=== PATIENT | male | born 1985 | race Asian ===

== ENCOUNTER 2017-09-28 22:46 | Emergency (ER) | payer OTHER ==
[~2017-09-28] VITALS: Ht 162.6 cm; Wt 58.1 kg
[~2017-09-28 22:46] MED LIST: FAMO-63 PO
[2017-09-28] MEDS ORDERED: LIDO:MAALOX:DONNATAL 1:1:1 15 ML SINGLE DOSE SWSW ONE (23:15)
--- NOTE | 2017-09-28 23:19 | PHYS DOC ---
Past Medical History Past Medical History: No Pertinent History Past Surgical History: No Surgical History Alcohol Use: None Drug Use: None Adult General Chief Complaint Chief Complaint: GI PROBLEM HPI HPI Patient is a 32 year old male who presents with complaint of abdominal pain and diarrhea. Patient states his symptoms started 3 days ago and have continued to worsen. Patient denies any significant past medical history and has not recently been hospitalized or on antibiotics. On my evaluation, the patient rates his pain as 2/10. Patient denies any vomiting or fever associated with symptoms. Patient states that he has been taking a medication for his stomach but does not know the name of the medication. Patient took a picture of a capsule that resembles omeprazole however it is unclear if this is the medication that he is taking. The patient denies any exacerbating or alleviating factors at this time. Review of Systems Review of Systems Constitutional: Denies fever or chills [] Eyes: Denies change in visual acuity, redness, or eye pain [] HENT: Denies nasal congestion or sore throat [] Respiratory: Denies cough or shortness of breath [] Cardiovascular: Denies chest pain or edema[] GI: Abdominal pain, diarrhea, denies nausea or vomiting[] : Denies dysuria or hematuria [] Musculoskeletal: Denies back pain or joint pain [] Integument: Denies rash or skin lesions [] Neurologic: Denies headache, focal weakness or sensory changes [] All other systems were reviewed and found to be within normal limits, except as documented in this note. Current Medications Current Medications Current Medications Medications (Trade) Dose Ordered Sig/Cyndi Start Time Stop Time Status Last Admin Dose Admin Multi-Ingredient Mouthwash/Gargle (Gi Cocktail Single Dose) 15 ml 1X ONCE 09/28/17 23:15 09/28/17 23:16 DC 09/28/17 23:21 15 ML Allergies Allergies Allergies Coded Allergies Type Severity Reaction Last Updated Verified No Known Drug Allergies 08/11/16 No Physical Exam Physical Exam Constitutional: Alert, afebrile, no acute distress. [] HENT: Normocephalic, atraumatic, bilateral external ears normal, oropharynx moist, no oral exudates, nose normal. [] Eyes: PERRLA, EOMI, conjunctiva normal, no discharge. [] Neck: Normal range of motion, no tenderness, supple, no stridor. [] Cardiovascular:Heart rate regular rhythm, no murmur [] Lungs & Thorax: Bilateral breath sounds clear to auscultation [] Abdomen: Bowel sounds normal, soft, no tenderness, no masses, no pulsatile masses. [] Skin: Warm, dry, no erythema, no rash. [] Back: No tenderness, no CVA tenderness. [] Extremities: No tenderness, no cyanosis, no clubbing, ROM intact, no edema. [] Neurologic: Alert and oriented X 3, normal motor function, normal sensory function, no focal deficits noted. [] Current Patient Data Vital Signs Vital Signs Date Time Temp Pulse Resp B/P (MAP) Pulse Ox O2 Delivery O2 Flow Rate FiO2 09/28/17 23:30 68 21 123/71 (88) 99 Room Air 09/28/17 23:00 98.2 98.2 Lab Values Laboratory Tests Test 09/28/17 23:25 White Blood Count 6.9 x10^3/uL (4.0-11.0) Red Blood Count 5.03 x10^6/uL (4.30-5.70) Hemoglobin 14.6 g/dL (13.0-17.5) Hematocrit 43.8 % (39.0-53.0) Mean Corpuscular Volume 87 fL (79-100) Mean Corpuscular Hemoglobin 29 pg (25-35) Mean Corpuscular Hemoglobin Concent 33 g/dL (31-37) Red Cell Distribution Width 13.1 % (11.5-14.5) Platelet Count 210 x10^3/uL (140-400) Neutrophils (%) (Auto) 57 % (31-73) Lymphocytes (%) (Auto) 32 % (24-48) Monocytes (%) (Auto) 8 % (0-9) Eosinophils (%) (Auto) 2 % (0-3) Basophils (%) (Auto) 1 % (0-3) Neutrophils # (Auto) 4.0 x10^3uL (1.8-7.7) Lymphocytes # (Auto) 2.2 x10^3/uL (1.0-4.8) Monocytes # (Auto) 0.6 x10^3/uL (0.0-1.1) Eosinophils # (Auto) 0.1 x10^3/uL (0.0-0.7) Basophils # (Auto) 0.0 x10^3/uL (0.0-0.2) Sodium Level 144 mmol/L (136-145) Potassium Level 3.7 mmol/L (3.5-5.1) Chloride Level 106 mmol/L (98-107) Carbon Dioxide Level 29 mmol/L (21-32) Anion Gap 9 (6-14) Blood Urea Nitrogen 16 mg/dL (8-26) Creatinine 1.3 mg/dL (0.7-1.3) Estimated GFR (Cockcroft-Gault) 64.0 BUN/Creatinine Ratio 12 (6-20) Glucose Level 93 mg/dL (70-99) Calcium Level 8.4 mg/dL (8.5-10.1) L Total Bilirubin 0.3 mg/dL (0.2-1.0) Aspartate Amino Transferase (AST) 16 U/L (15-37) Alanine Aminotransferase (ALT) 21 U/L (16-63) Alkaline Phosphatase 82 U/L (46-116) Total Protein 7.2 g/dL (6.4-8.2) Albumin 4.0 g/dL (3.4-5.0) Albumin/Globulin Ratio 1.3 (1.0-1.7) Lipase 225 U/L (73-393) Laboratory Tests 09/28/17 23:25 Laboratory Tests 09/28/17 23:25 EKG EKG Not performed[] Radiology/Procedures Radiology/Procedures 3 view acute abdominal series interpreted by me: Nonobstructive bowel gas pattern, no free air under the diaphragm, no pulmonary infiltrates or effusions[ ] Course & Med Decision Making Course & Med Decision Making Pertinent Labs and Imaging studies reviewed. (See chart for details) Patient given GI cocktail in the emergency department with improvement in pain symptoms. Patient's labwork unremarkable and x-ray show no acute abnormality. The patient's symptoms appear consistent with gastritis. Advised to continue on home PPI and follow-up in one week with primary doctor for reevaluation. Advised return emergency department for any worsening symptoms. Agent voiced understanding and in agreement with treatment plan. Dragon Disclaimer Dragon Disclaimer This electronic medical record was generated, in whole or in part, using a voice recognition dictation system. Departure Departure Impression: Primary Impression: Abdominal pain Additional Impression: Diarrhea Disposition: HOME, SELF-CARE Condition: IMPROVED Referrals: UNKNOWN PCP NAME (PCP) Patient Instructions: Abdominal Pain, Diarrhea Additional Instructions: Follow-up to primary doctor in 1 week if symptoms are not improving. Continue your medication as prescribed at your previous visit for treatment of your symptoms. Return to emergency department for any worsening symptoms. Problem Qualifiers Primary Impression: Abdominal pain Abdominal location: epigastric Qualified Codes: R10.13 - Epigastric pain Additional Impression: Diarrhea Diarrhea type: presumed infectious Qualified Codes: A09 - Infectious gastroenteritis and colitis, unspecified CINTHYA MCKEON MD Sep 28, 2017 23:19
[2017-09-28 23:35] LABS: BASO % 1 % (0-3); EOS % 2 % (0-3); HEMATOCRIT 43.8 % (39.0-53.0); HEMOGLOBIN 14.6 g/dL (13.0-17.5); LYMPH # 2.2 x10^3/uL (1.0-4.8); LYMPH % 32 % (24-48); MEAN CORPUSCULAR HEMOGLOBIN 29 pg (25-35); MEAN CORPUSCULAR HGB CONC 33 g/dL (31-37); MEAN CORPUSCULAR VOLUME 87 fL (79-100); MONO % 8 % (0-9); NEUT % 57 % (31-73); PLATELET COUNT 210 x10^3/uL (140-400); RED BLOOD COUNT 5.03 x10^6/uL (4.30-5.70); RED CELL DISTRIBUTION WIDTH 13.1 % (11.5-14.5); WHITE BLOOD COUNT 6.9 x10^3/uL (4.0-11.0)
[2017-09-28 23:46] LABS: CALCIUM 8.4 mg/dL (8.5-10.1); CREATININE 1.3 mg/dL (0.7-1.3); POTASSIUM 3.7 mmol/L (3.5-5.1)
[2017-09-28 23:51] LABS: ALBUMIN/GLOBULIN RATIO 1.3 (1.0-1.7); TOTAL BILIRUBIN 0.3 mg/dL (0.2-1.0); TOTAL PROTEIN 7.2 g/dL (6.4-8.2)
[2017-09-29] VITALS: BP 125/63
--- NOTE | 2017-09-29 08:19 | RAD ---
Indication: Abdominal pain. Time of exam 2344 hours. The heart size is normal. The lungs are clear. No free air is identified. The bowel gas pattern is nonobstructed. No pathologic calcifications are seen. Impression: No acute feature detected.
[2017-09-29] MEDS ORDERED: LOPE2CAP PO (23:07)
== END 2017-09-29 00:15 | disposition home or self-care (01) ==
LOC: ER 22:46
DX: A09 Infectious gastroenteritis and colitis, unspecified (principal); R10.13 Epigastric pain
CPT/HCPCS: 36415; 74022; 80053; 83690; 85025; 99285-25

== ENCOUNTER 2017-09-29 22:07 | Emergency (ER) | payer OTHER ==
[~2017-09-29] VITALS: Ht 152.4 cm; Wt 59.0 kg
[2017-09-29 23:00] VITALS: BP 126/81
[2017-09-29] MEDS ORDERED: LOPERAMIDE 2 MG CAPSULE PO ONE (23:00)
[2017-09-29] MEDS ORDERED: LOPE2CAP PO (23:07)
--- NOTE | 2017-09-29 23:07 | PHYS DOC ---
Past Medical History Past Medical History: No Pertinent History Past Surgical History: No Surgical History Alcohol Use: None Drug Use: None Adult General Chief Complaint Chief Complaint: ABDOMINAL PAIN HPI HPI Patient is a 32 year old male who presents with complaint of diarrhea. Patient states that he has had symptoms for the past 4 days. Patient was seen in the emergency department yesterday and had blood work completed which did not show any acute findings. The patient denies any pain currently. Patient states that his diarrhea has persisted. Patient states that he was told come back to emergency department if his symptoms did not improve from yesterday's visit. Patient states that he has missed work the last 2 days due to his symptoms. Patient denies any associated fever or vomiting. Patient has been able to eat and drink without difficulty. Patient denies any recent travel out of the city limits within the last month. Patient also denies any known sick contacts. Review of Systems Review of Systems Constitutional: Denies fever or chills [] Eyes: Denies change in visual acuity, redness, or eye pain [] HENT: Denies nasal congestion or sore throat [] Respiratory: Denies cough or shortness of breath [] Cardiovascular: Denies chest pain or edema[] GI: Diarrhea, denies abdominal pain, nausea, or vomiting[] : Denies dysuria or hematuria [] Musculoskeletal: Denies back pain or joint pain [] Integument: Denies rash or skin lesions [] Neurologic: Denies headache, focal weakness or sensory changes [] All other systems were reviewed and found to be within normal limits, except as documented in this note. Current Medications Current Medications Current Medications Medications (Trade) Dose Ordered Sig/[facility] Start Time Stop Time Status Last Admin Dose Admin Loperamide HCl (Imodium) 4 mg 1X ONCE 09/29/17 23:00 09/29/17 23:01 DC 09/29/17 23:00 4 MG Allergies Allergies Allergies Coded Allergies Type Severity Reaction Last Updated Verified No Known Drug Allergies 08/11/16 No Physical Exam Physical Exam Constitutional: Alert, afebrile, no acute distress. [] HENT: Normocephalic, atraumatic, bilateral external ears normal, oropharynx moist, no oral exudates, nose normal. [] Eyes: PERRLA, EOMI, conjunctiva normal, no discharge. [] Neck: Normal range of motion, no tenderness, supple, no stridor. [] Cardiovascular:Heart rate regular rhythm, no murmur [] Lungs & Thorax: Bilateral breath sounds clear to auscultation [] Abdomen: Bowel sounds normal, soft, no tenderness, no masses, no pulsatile masses. [] Skin: Warm, dry, no erythema, no rash. [] Back: No tenderness, no CVA tenderness. [] Extremities: No tenderness, no cyanosis, no clubbing, ROM intact, no edema. [] Neurologic: Alert and oriented X 3, normal motor function, normal sensory function, no focal deficits noted. [] Current Patient Data Vital Signs Vital Signs Date Time Temp Pulse Resp B/P (MAP) Pulse Ox O2 Delivery O2 Flow Rate FiO2 09/29/17 23:00 66 16 126/81 (96) 97 Room Air 09/29/17 22:25 98.2 98.2 Lab Values None performed EKG EKG Not performed[] Radiology/Procedures Radiology/Procedures None performed[] Course & Med Decision Making Course & Med Decision Making Pertinent Labs and Imaging studies reviewed. (See chart for details) Patient appears well and in no acute distress. The patient's diarrhea is likely due to viral illness. The patient was treated with Imodium in the emergency department and instructed to continue on Imodium as needed for diarrhea. Advise follow-up in the next 5-7 days if symptoms are not improving and return emergency department for any worsening symptoms. Patient voiced understanding and in agreement with treatment plan. Dragon Disclaimer Dragon Disclaimer This electronic medical record was generated, in whole or in part, using a voice recognition dictation system. Departure Departure Impression: Primary Impression: Diarrhea Disposition: 01 HOME, SELF-CARE Condition: GOOD Referrals: UNKNOWN PCP NAME (PCP) Patient Instructions: Diarrhea Additional Instructions: Follow-up and 5-7 days if symptoms are not improving. Return to the emergency department for any worsening symptoms such as severe pain, fever, uncontrolled vomiting, or bloody stools. Scripts Loperamide Hcl (LOPERAMIDE) 2 Mg Capsule 2 MG PO UD Y for DIARRHEA, #1 PKG Take one capsule after each unformed stool. Do not take more than 8 capsules in one day. Prov: CINTHYA MCKEON MD 09/29/17 Problem Qualifiers Primary Impression: Diarrhea Diarrhea type: presumed infectious Qualified Codes: A09 - Infectious gastroenteritis and colitis, unspecified CINTHYA MCKEON MD Sep 29, 2017 23:07
== END 2017-09-29 23:13 | disposition home or self-care (01) ==
LOC: ER 22:07
DX: R19.7 Diarrhea, unspecified (principal)
CPT/HCPCS: 99283

== ENCOUNTER 2017-11-04 16:42 | Emergency (ER) | payer OTHER | END 2017-11-04 21:32 | disposition home or self-care (01) | LOC: ER 16:42 | DX: R10.10 Upper abdominal pain, unspecified (principal); R14.1 Gas pain | CPT/HCPCS: 99284 ==

== ENCOUNTER 2019-02-06 21:37 | Emergency (ER) | payer BC, OTHER ==
[~2019-02-06] VITALS: Ht 167.6 cm; Wt 61.2 kg
[~2019-02-06 21:37] MED LIST changes: +LOPE2CAP PO
[2019-02-06 22:28] LABS: BASO % 0 % (0-3); EOS % 0 % (0-3); HEMOGLOBIN 14.2 g/dL (13.0-17.5); LYMPH # 0.6 x10^3/uL (1.0-4.8); LYMPH % 5 % (24-48); MEAN CORPUSCULAR HEMOGLOBIN 28 pg (25-35); MEAN CORPUSCULAR HGB CONC 33 g/dL (31-37); MEAN CORPUSCULAR VOLUME 85 fL (79-100); MONO % 7 % (0-9); NEUT # 12.3 x10^3uL (1.8-7.7); NEUT % 88 % (31-73); PLATELET COUNT 203 x10^3/uL (140-400); RED BLOOD COUNT 5.05 x10^6/uL (4.30-5.70); RED CELL DISTRIBUTION WIDTH 13.2 % (11.5-14.5); WHITE BLOOD COUNT 14.1 x10^3/uL (4.0-11.0)
--- NOTE | 2019-02-06 22:40 | PHYS DOC ---
Past Medical History Past Medical History: No Pertinent History Past Surgical History: No Surgical History Alcohol Use: None Drug Use: None Adult General Chief Complaint Chief Complaint: ABDOMINAL PAIN HPI HPI Patient is a 34 year old male who presents with abdominal pain. He describes it as a crampy sensation that he is unable to localize. He states the pain started after eating spicy barbecue. Palpation of the stomach makes his pain worse. Nothing has improved his pain. He is also reporting nausea. Patient denies any fevers, chills, vomit, or blood in his urine. Last bowel movement was at noon and was normal for him. Review of Systems Review of Systems Constitutional: Denies fever or chills Eyes: Denies redness or eye pain HENT: Denies nasal congestion or sore throat Respiratory: Denies cough or shortness of breath Cardiovascular: Denies chest pain or palpitations GI: Reports abdominal pain, nausea. Denies vomiting, bloody stools or diarrhea : Denies dysuria or hematuria Musculoskeletal: Denies back pain or joint pain Integument: Denies rash or skin lesions Neurologic: Denies headache or weakness Complete systems were reviewed and found to be within normal limits, except as documented in this note. Current Medications Current Medications Current Medications Medications (Trade) Dose Ordered Sig/[facility] Start Time Stop Time Status Last Admin Dose Admin Famotidine (Pepcid Vial) 20 mg 1X ONCE 02/06/19 23:00 02/06/19 23:01 DC 02/06/19 22:41 20 MG Ketorolac Tromethamine (Toradol 15mg Vial) 15 mg 1X ONCE 02/06/19 23:00 02/06/19 23:01 DC 02/06/19 22:41 15 MG Multi-Ingredient Mouthwash/Gargle (Gi Cocktail) 20 ml 1X ONCE 02/06/19 23:00 02/06/19 23:01 DC 02/07/19 00:04 20 ML Ondansetron HCl (Zofran) 4 mg 1X ONCE 02/06/19 23:00 02/06/19 23:01 DC 02/06/19 22:41 4 MG Potassium Chloride (Klor-Con) 40 meq 1X ONCE 02/07/19 02:30 02/07/19 02:31 DC 02/07/19 02:31 40 MEQ Sodium Chloride 1,000 ml @ 1,000 mls/hr 1X ONCE 02/06/19 23:00 02/07/19 00:01 DC 02/06/19 22:41 1,000 MLS/HR Allergies Allergies Allergies Coded Allergies Type Severity Reaction Last Updated Verified No Known Drug Allergies 08/11/16 No Physical Exam Physical Exam Constitutional: Well developed, well nourished HENT: Normocephalic, atraumatic Eyes: Conjunctiva normal, no discharge. Neck: Normal range of motion, no tenderness, supple, no stridor. Cardiovascular:Heart rate regular rhythm, no murmur Lungs & Thorax: Bilateral breath sounds clear to auscultation Abdomen: Bowel sounds normal, soft, lower abdominal tenderness, no rebound, rigidity, or guarding, non peritoneal Skin: Warm, dry. Back: No tenderness, no CVA tenderness. Extremities: No tenderness, no cyanosis, no clubbing, ROM intact, no edema. Neurologic: Alert and oriented X 3, no focal deficits noted. Psychologic: Affect normal, mood normal. Current Patient Data Vital Signs Vital Signs Date Time Temp Pulse Resp B/P (MAP) Pulse Ox O2 Delivery O2 Flow Rate FiO2 02/07/19 02:30 64 16 109/64 (79) 98 Room Air 02/06/19 21:47 98.2 98.2 Lab Values Laboratory Tests Test 02/06/19 22:18 02/07/19 01:10 White Blood Count 14.1 x10^3/uL (4.0-11.0) H Red Blood Count 5.05 x10^6/uL (4.30-5.70) Hemoglobin 14.2 g/dL (13.0-17.5) Hematocrit 43.0 % (39.0-53.0) Mean Corpuscular Volume 85 fL (79-100) Mean Corpuscular Hemoglobin 28 pg (25-35) Mean Corpuscular Hemoglobin Concent 33 g/dL (31-37) Red Cell Distribution Width 13.2 % (11.5-14.5) Platelet Count 203 x10^3/uL (140-400) Neutrophils (%) (Auto) 88 % (31-73) H Lymphocytes (%) (Auto) 5 % (24-48) L Monocytes (%) (Auto) 7 % (0-9) Eosinophils (%) (Auto) 0 % (0-3) Basophils (%) (Auto) 0 % (0-3) Neutrophils # (Auto) 12.3 x10^3uL (1.8-7.7) H Lymphocytes # (Auto) 0.6 x10^3/uL (1.0-4.8) L Monocytes # (Auto) 1.0 x10^3/uL (0.0-1.1) Eosinophils # (Auto) 0.0 x10^3/uL (0.0-0.7) Basophils # (Auto) 0.0 x10^3/uL (0.0-0.2) Segmented Neutrophils % 80 % (35-66) H Band Neutrophils % 7 % (0-9) Lymphocytes % 4 % (24-48) L Monocytes % 8 % (0-10) Eosinophils % 1 % (0-5) Platelet Estimate Adequate (ADEQUATE) Sodium Level 140 mmol/L (136-145) Potassium Level 2.9 mmol/L (3.5-5.1) *L Chloride Level 103 mmol/L (98-107) Carbon Dioxide Level 25 mmol/L (21-32) Anion Gap 12 (6-14) Blood Urea Nitrogen 23 mg/dL (8-26) Creatinine 1.1 mg/dL (0.7-1.3) Estimated GFR (Cockcroft-Gault) 76.6 BUN/Creatinine Ratio 21 (6-20) H Glucose Level 113 mg/dL (70-99) H Calcium Level 9.4 mg/dL (8.5-10.1) Magnesium Level 1.7 mg/dL (1.8-2.4) L Total Bilirubin 0.6 mg/dL (0.2-1.0) Aspartate Amino Transferase (AST) 20 U/L (15-37) Alanine Aminotransferase (ALT) 25 U/L (16-63) Alkaline Phosphatase 79 U/L (46-116) Total Protein 7.5 g/dL (6.4-8.2) Albumin 4.2 g/dL (3.4-5.0) Albumin/Globulin Ratio 1.3 (1.0-1.7) Lipase 184 U/L (73-393) Urine Collection Type Unknown Urine Color Yellow Urine Clarity Clear Urine pH 6.0 Urine Specific [place] 1.015 Urine Protein Negative mg/dL (NEG-TRACE) Urine Glucose (UA) Negative mg/dL (NEG) Urine Ketones (Stick) Negative mg/dL (NEG) Urine Blood Negative (NEG) Urine Nitrite Negative (NEG) Urine Bilirubin Negative (NEG) Urine Urobilinogen Dipstick 0.2 mg/dL (0.2 mg/dL) Urine Leukocyte Esterase Negative (NEG) Urine RBC 0 /HPF (0-2) Urine WBC Occ /HPF (0-4) Urine Squamous Epithelial Cells Occ /LPF Urine Bacteria 0 /HPF (0-FEW) Urine Mucus Slight /LPF Laboratory Tests 02/06/19 22:18 Laboratory Tests 02/06/19 22:18 EKG EKG [] Radiology/Procedures Radiology/Procedures PROCEDURE: CT ABDOMEN PELVIS WO CONTRAST PQRS Compliance statement: One or more of the following individualized dose reduction techniques were utilized for this examination: 1. Automated exposure control. 2. Adjustment of the mA and/or kV according to patient size. 3. Use of iterative reconstruction technique. Indication:ABD PAIN; EVAL FOR URETERAL CALCULI TECHNIQUE: CT abdomen and pelvis without IV contrast with multiplanar reformats. COMPARISON: None FINDINGS: Limited evaluation of solid abdominal and pelvic organs due to lack of IV contrast. Heart is normal in size. No pericardial or pleural effusion. Motion artifact is seen in the lung bases limiting optimal evaluation. Noncontrast appearance of the liver, spleen, gallbladder, pancreas, adrenals within normal limits. No nephrolithiasis or hydronephrosis. No free pelvic fluid or ascites. No enlarged pelvic or retroperitoneal lymph nodes. No bowel obstruction. Appendix not seen. No right lower quadrant inflammatory changes. Acromial unity bladder demonstrates no radiopaque stones. No pneumoperitoneum. No suspicious bony lesion. IMPRESSION: Limited evaluation of solid abdominal and pelvic organs due to lack of IV contrast. 1. No nephrolithiasis or hydronephrosis. 2. Appendix not visualized. No right lower quadrant inflammatory changes. Electronically signed by: Kaiden Moore DO (02/06/2019 11:41 PM) [facility] DICTATED and SIGNED BY: KAIDEN MOORE DO Course & Med Decision Making Course & Med Decision Making 34 year old male presented to the ED for abdominal pain. Patient reports similar episodes in year pasts, but has not been able to find the source of his pain. Today's pain started after eating spicy barbecue. Labs and imaging obtained and posted to the chart. Symptomatic treatment provided with interval improvement. GI cocktail provided relief. Patient stable for discharge with outpatient follow-up with PCP and GI. Discussed findings and plan with patient and family, who acknowledge understanding and agreement. Casper Disclaimer Casper Disclaimer This electronic medical record was generated, in whole or in part, using a voice recognition dictation system. Departure Departure Impression: Primary Impression: Abdominal pain Additional Impression: Hypokalemia Disposition: HOME, SELF-CARE Condition: STABLE Referrals: NO PCP (PCP) OZZIE CABALLERO MD Patient Instructions: Abdominal Pain (Nonspecific), Hypokalemia, Potassium Content of Foods Scripts Hyoscyamine Sulfate (LEVSIN-SL) 0.125 Mg Tab.subl 1 TAB SL PRN Q4HRS PRN for PAIN, #20 TAB Prov: LUKASZ ROGERS DO 02/07/19 Famotidine (PEPCID) 20 Mg Tablet 20 MG PO BID, #20 TAB Prov: LUKASZ ROGERS DO 02/07/19 Ondansetron (ONDANSETRON ODT) 4 Mg Tab.rapdis 1 TAB PO PRN Q6-8HRS PRN for NAUSEA, #16 TAB Prov: LUKASZ ROGERS DO 02/07/19 Problem Qualifiers Primary Impression: Abdominal pain Abdominal location: unspecified location Qualified Codes: R10.9 - Unspecified abdominal pain LUKASZ ROGERS DO Feb 06, 2019 22:40
[2019-02-06 22:44] LABS: ALBUMIN 4.2 g/dL (3.4-5.0); ALBUMIN/GLOBULIN RATIO 1.3 (1.0-1.7); CALCIUM 9.4 mg/dL (8.5-10.1); CREATININE 1.1 mg/dL (0.7-1.3); GFR 76.6; MAGNESIUM 1.7 mg/dL (1.8-2.4); TOTAL BILIRUBIN 0.6 mg/dL (0.2-1.0); TOTAL PROTEIN 7.5 g/dL (6.4-8.2)
[2019-02-06 22:46] LABS: POTASSIUM 2.9 mmol/L (3.5-5.1)
[2019-02-06 22:54] LABS: % BANDS 7 % (0-9); % EOS 1 % (0-5); % LYMPHS 4 % (24-48); % MONOS 8 % (0-10); % SEGS 80 % (35-66); PLT ESTIMATE ADEQUATE (ADEQUATE)
[2019-02-06] MEDS ORDERED: LIDO:MAALOX 1:1 20 ML SINGLE DOSE. PO ONE (23:00)
[2019-02-06] MEDS ORDERED: KETOROLAC 15 MG/ML VIAL. IV ONE (23:00)
[2019-02-06] MEDS ORDERED: IV NORMAL SALINE 1000ML BAG 1,000 ML IV ONE (23:00)
[2019-02-06] MEDS ORDERED: ONDANSETRON PF 4 MG/2 ML VIAL. IV ONE (23:00)
[2019-02-06] MEDS ORDERED: FAMOTIDINE 20 MG/2 ML VIAL IVP ONE (23:00)
--- NOTE | 2019-02-06 23:43 | RAD ---
PQRS Compliance statement: One or more of the following individualized dose reduction techniques were utilized for this examination: 1. Automated exposure control. 2. Adjustment of the mA and/or kV according to patient size. 3. Use of iterative reconstruction technique. Indication:ABD PAIN; EVAL FOR URETERAL CALCULI TECHNIQUE: CT abdomen and pelvis without IV contrast with multiplanar reformats. COMPARISON: None FINDINGS: Limited evaluation of solid abdominal and pelvic organs due to lack of IV contrast. Heart is normal in size. No pericardial or pleural effusion. Motion artifact is seen in the lung bases limiting optimal evaluation. Noncontrast appearance of the liver, spleen, gallbladder, pancreas, adrenals within normal limits. No nephrolithiasis or hydronephrosis. No free pelvic fluid or ascites. No enlarged pelvic or retroperitoneal lymph nodes. No bowel obstruction. Appendix not seen. No right lower quadrant inflammatory changes. Acromial unity bladder demonstrates no radiopaque stones. No pneumoperitoneum. No suspicious bony lesion. IMPRESSION: Limited evaluation of solid abdominal and pelvic organs due to lack of IV contrast. 1. No nephrolithiasis or hydronephrosis. 2. Appendix not visualized. No right lower quadrant inflammatory changes. Electronically signed by: Kaiden Fabian DO (02/06/2019 11:41 PM) [facility]
[2019-02-07 01:24] LABS: BILIRUBIN,URINE NEGATIVE (NEG); CLARITY,URINE CLEAR; COLOR,URINE YELLOW; NITRITE,URINE NEGATIVE (NEG); PROTEIN,URINE NEGATIVE (NEG-TRACE); UROBILINOGEN,URINE 0.2 mg/dL (0.2 mg/dL)
[2019-02-07 01:33] LABS: BACTERIA,URINE 0 /HPF (0-FEW); RBC,URINE 0 /HPF (0-2); SQUAMOUS EPITHELIAL CELL,UR OCC /LPF; WBC,URINE OCC /HPF (0-4)
[2019-02-07] MEDS ORDERED: FAMO-63 PO (02:14)
[2019-02-07] MEDS ORDERED: ONDA4TAB12 PO (02:14)
[2019-02-07] MEDS ORDERED: HYOS0.1265 SL (02:14)
[2019-02-07 02:30] VITALS: BP 109/64
[2019-02-07] MEDS ORDERED: POTASSIUM CHLORIDE 20 MEQ TABLET.ER. PO ONE (02:30)
== END 2019-02-07 02:34 | disposition home or self-care (01) ==
LOC: ER 21:37
DX: R10.30 Lower abdominal pain, unspecified (principal); E87.6 Hypokalemia; R11.0 Nausea
CPT/HCPCS: 36415; 74176; 80053; 81001; 83690; 83735; 85007; 85025; 96374; 96375; 99285; J1885; J2405; J3490; J7030

== ENCOUNTER 2019-07-16 14:49 | Emergency (ER) | payer BC ==
[~2019-07-16] VITALS: Ht 162.6 cm; Wt 63.0 kg
[~2019-07-16 14:49] MED LIST changes: +ACET500T68 PO; +HYOS0.1265 SL; +LEVE250T30 PO; +ONDA4TAB12 PO
[2019-07-16] MEDS ORDERED: IV NORMAL SALINE 1000ML BAG 1,000 ML IV SCH (15:24)
--- NOTE | 2019-07-16 15:42 | PHYS DOC ---
Past Medical History Past Medical History: Seizure, Other Additional Past Medical Histor: BRAIN BLEED 04/29 Past Surgical History: No Surgical History Alcohol Use: None Drug Use: None Adult General Chief Complaint Chief Complaint: ABDOMINAL PAIN HPI HPI Patient is a 34 year old non-Latvian speaking male who presents with complaining of abdominal pain. History was taking via translating service. Patient complaining of gradual onset of periumbilical aching abdominal pain for the last 6 hours as a constant pain without radiation. Patient rated his pain 10 over 10 and denies fever and chills, nausea and vomiting, constipation and diarrhea, urinary symptom. Patient states he had several episodes of the same pain previously and usually his pain resolving with IV fluid. Review of Systems Review of Systems Constitutional: Denies fever or chills [] Eyes: Denies change in visual acuity, redness, or eye pain [] HENT: Denies nasal congestion or sore throat [] Respiratory: Denies cough or shortness of breath [] Cardiovascular: No additional information not addressed in HPI [] GI: Reports abdominal pain, denies nausea, vomiting, bloody stools or diarrhea [] : Denies dysuria or hematuria [] Musculoskeletal: Denies back pain or joint pain [] Integument: Denies rash or skin lesions [] Neurologic: Denies headache, focal weakness or sensory changes [] Endocrine: Denies polyuria or polydipsia [] All other systems were reviewed and found to be within normal limits, except as documented in this note. Current Medications Current Medications Current Medications Medications (Trade) Dose Ordered Sig/[facility] Start Time Stop Time Status Last Admin Dose Admin Ketorolac Tromethamine (Toradol 30mg Vial) 30 mg 1X ONCE 07/16/19 17:00 07/16/19 17:01 DC 07/16/19 17:09 30 MG Sodium Chloride 1,000 ml @ 1,000 mls/hr Q1H 07/16/19 15:24 07/16/19 16:23 DC 07/16/19 15:45 1,000 MLS/HR Allergies Allergies Allergies Coded Allergies Type Severity Reaction Last Updated Verified No Known Drug Allergies 08/11/16 No Physical Exam Physical Exam Constitutional: Well developed, well nourished, mild distress, non-toxic appearance. [] HENT: Normocephalic, atraumatic. Eyes: PERRLA, EOMI, conjunctiva normal, no discharge. [] Neck: Normal range of motion, no tenderness, supple, no stridor. [] Cardiovascular:Heart rate regular rhythm, no murmur [] Lungs & Thorax: Bilateral breath sounds clear to auscultation [] Abdomen: Bowel sounds normal, soft, no tenderness, no masses, no pulsatile masses. [] Skin: Warm, dry, no erythema, no rash. [] Back: No tenderness, no CVA tenderness. [] Extremities: No tenderness, no cyanosis, no clubbing, ROM intact, no edema. [] Neurologic: Alert and oriented X 3, no focal deficits noted. [] Psychologic: Affect normal, judgement normal, mood normal. [] Current Patient Data Vital Signs Vital Signs Date Time Temp Pulse Resp B/P (MAP) Pulse Ox O2 Delivery O2 Flow Rate FiO2 07/16/19 17:30 80 29 128/85 (99) 99 Room Air 07/16/19 15:09 98.4 98.4 Lab Values Laboratory Tests Test 07/16/19 15:35 07/16/19 16:45 White Blood Count 14.9 x10^3/uL (4.0-11.0) H Red Blood Count 4.79 x10^6/uL (4.30-5.70) Hemoglobin 14.0 g/dL (13.0-17.5) Hematocrit 41.3 % (39.0-53.0) Mean Corpuscular Volume 86 fL (79-100) Mean Corpuscular Hemoglobin 29 pg (25-35) Mean Corpuscular Hemoglobin Concent 34 g/dL (31-37) Red Cell Distribution Width 13.2 % (11.5-14.5) Platelet Count 206 x10^3/uL (140-400) Neutrophils (%) (Auto) 91 % (31-73) H Lymphocytes (%) (Auto) 5 % (24-48) L Monocytes (%) (Auto) 4 % (0-9) Eosinophils (%) (Auto) 0 % (0-3) Basophils (%) (Auto) 0 % (0-3) Neutrophils # (Auto) 13.5 x10^3/uL (1.8-7.7) H Lymphocytes # (Auto) 0.7 x10^3/uL (1.0-4.8) L Monocytes # (Auto) 0.6 x10^3/uL (0.0-1.1) Eosinophils # (Auto) 0.1 x10^3/uL (0.0-0.7) Basophils # (Auto) 0.0 x10^3/uL (0.0-0.2) Segmented Neutrophils % 85 % (35-66) H Band Neutrophils % 1 % (0-9) Lymphocytes % 5 % (24-48) L Monocytes % 8 % (0-10) Eosinophils % 1 % (0-5) Platelet Estimate Adequate (ADEQUATE) Sodium Level 138 mmol/L (136-145) Potassium Level 3.4 mmol/L (3.5-5.1) L Chloride Level 101 mmol/L (98-107) Carbon Dioxide Level 27 mmol/L (21-32) Anion Gap 10 (6-14) Blood Urea Nitrogen 13 mg/dL (8-26) Creatinine 1.0 mg/dL (0.7-1.3) Estimated GFR (Cockcroft-Gault) 85.5 BUN/Creatinine Ratio 13 (6-20) Glucose Level 164 mg/dL (70-99) H Calcium Level 9.2 mg/dL (8.5-10.1) Total Bilirubin 0.4 mg/dL (0.2-1.0) Aspartate Amino Transferase (AST) 30 U/L (15-37) Alanine Aminotransferase (ALT) 53 U/L (16-63) Alkaline Phosphatase 79 U/L (46-116) Total Protein 7.1 g/dL (6.4-8.2) Albumin 3.9 g/dL (3.4-5.0) Albumin/Globulin Ratio 1.2 (1.0-1.7) Lipase 115 U/L (73-393) Urine Collection Type Void Urine Color Yellow Urine Clarity Clear Urine pH 5.0 Urine Specific [place] 1.010 Urine Protein Negative mg/dL (NEG-TRACE) Urine Glucose (UA) Negative mg/dL (NEG) Urine Ketones (Stick) Negative mg/dL (NEG) Urine Blood Negative (NEG) Urine Nitrite Negative (NEG) Urine Bilirubin Negative (NEG) Urine Urobilinogen Dipstick 0.2 mg/dL (0.2 mg/dL) Urine Leukocyte Esterase Negative (NEG) Urine RBC 0 /HPF (0-2) Urine WBC 0 /HPF (0-4) Urine Bacteria 0 /HPF (0-FEW) Laboratory Tests 07/16/19 15:35 Laboratory Tests 07/16/19 15:35 EKG EKG [] Radiology/Procedures Radiology/Procedures [] Course & Med Decision Making Course & Med Decision Making Pertinent Labs reviewed. (See chart for details) Evaluation of patient in ER showed 34-year-old male patient with recurrent abdominal pain with unremarkable abdominal exam and labs except for white count of 14.9 and potassium of 3.4. Patient had episodes of leukocytosis with previous emergency department visits. Patient did not want of blood test or CT of abdomen and pelvis and had several CT in previous visits. Patient finally agreed to have blood test. Patient felt better with IV fluids and Toradol. Patient. Patient was advised to follow up with primary care physician and GI for recurrent abdominal pain. Dragon Disclaimer Dragon Disclaimer This electronic medical record was generated, in whole or in part, using a voice recognition dictation system. Departure Departure Impression: Primary Impression: Recurrent abdominal pain Additional Impression: Hypokalemia Disposition: 01 HOME, SELF-CARE (at 1740) Condition: IMPROVED Referrals: NO PCP (PCP) Patient Instructions: Abdominal Pain, Hypokalemia Additional Instructions: Drink plenty of liquids Follow-up with your primary care physician in 3-5 days Return to ER if not getting better Scripts Famotidine (PEPCID) 20 Mg Tablet 20 MG PO BID, #14 TAB Prov: RE FONTANA MD 07/16/19 Problem Qualifiers RE FONTANA MD Jul 16, 2019 15:42
[2019-07-16 15:47] LABS: BASO % 0 % (0-3); EOS # 0.1 x10^3/uL (0.0-0.7); EOS % 0 % (0-3); HEMATOCRIT 41.3 % (39.0-53.0); LYMPH # 0.7 x10^3/uL (1.0-4.8); LYMPH % 5 % (24-48); MEAN CORPUSCULAR HEMOGLOBIN 29 pg (25-35); MEAN CORPUSCULAR HGB CONC 34 g/dL (31-37); MEAN CORPUSCULAR VOLUME 86 fL (79-100); MONO # 0.6 x10^3/uL (0.0-1.1); MONO % 4 % (0-9); NEUT # 13.5 x10^3/uL (1.8-7.7); NEUT % 91 % (31-73); PLATELET COUNT 206 x10^3/uL (140-400); RED BLOOD COUNT 4.79 x10^6/uL (4.30-5.70); RED CELL DISTRIBUTION WIDTH 13.2 % (11.5-14.5); WHITE BLOOD COUNT 14.9 x10^3/uL (4.0-11.0)
[2019-07-16 15:54] LABS: CALCIUM 9.2 mg/dL (8.5-10.1); GFR 85.5; POTASSIUM 3.4 mmol/L (3.5-5.1)
[2019-07-16 15:59] LABS: ALBUMIN 3.9 g/dL (3.4-5.0); ALBUMIN/GLOBULIN RATIO 1.2 (1.0-1.7); TOTAL BILIRUBIN 0.4 mg/dL (0.2-1.0); TOTAL PROTEIN 7.1 g/dL (6.4-8.2)
[2019-07-16 16:04] LABS: % BANDS 1 % (0-9); % EOS 1 % (0-5); % LYMPHS 5 % (24-48); % MONOS 8 % (0-10); % SEGS 85 % (35-66); PLT ESTIMATE ADEQUATE (ADEQUATE)
[2019-07-16 16:56] LABS: BILIRUBIN,URINE NEGATIVE (NEG); CLARITY,URINE CLEAR; COLOR,URINE YELLOW; NITRITE,URINE NEGATIVE (NEG); PROTEIN,URINE NEGATIVE (NEG-TRACE); UROBILINOGEN,URINE 0.2 mg/dL (0.2 mg/dL)
[2019-07-16] MEDS ORDERED: KETOROLAC 30 MG/ML VIAL. IV ONE (17:00)
[2019-07-16 17:13] LABS: BACTERIA,URINE 0 /HPF (0-FEW); RBC,URINE 0 /HPF (0-2); WBC,URINE 0 /HPF (0-4)
[2019-07-16 17:30] VITALS: BP 128/85
[2019-07-16] MEDS ORDERED: FAMO-63 PO (17:41)
--- NOTE | 2019-07-17 11:27 | EKG ---
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
== END 2019-07-16 17:55 | disposition home or self-care (01) ==
LOC: ER 14:49
DX: R10.33 Periumbilical pain (principal); E87.6 Hypokalemia
CPT/HCPCS: 36415; 80053; 81001; 83690; 85007; 85025; 93005; 96374; 99285; J1885; J7030

== ENCOUNTER → 2019-08-08 | Outpatient (CLI) | payer BC ==
[2019-07-16 17:30] VITALS: BP 128/85
[2019-08-08 13:33] LABS: BARBITURATES NEG (NEG); BENZODIAZEPINES NEG (NEG); CANNABINOIDS NEG (NEG); COCAINE NEG (NEG); METHADONE NEG (NEG); OPIATES NEG (NEG); PHENCYCLIDINE NEG (NEG)
[2019-08-08 13:34] LABS: AMPHETAMINE/METHAMPHETAMINE NEG (NEG)
== END | disposition home or self-care (01) ==
LOC: LAB 12:54
PROVIDERS: ATTEND Psychiatry & Neurology Neurology
DX: R56.9 Unspecified convulsions (principal)
CPT/HCPCS: 80307

== ENCOUNTER → 2019-08-19 | Outpatient (CLI) | payer BC ==
--- NOTE | 2019-08-19 13:44 | RAD ---
CT HEAD AND CERVICAL SPINE WO History: Intracranial hemorrhage. Right neck pain. Comparison: May 01, 2019 CT. Brain MRI May 02, 2019. Technique: Noncontrast CT imaging was performed of the head and cervical spine. Coronal and sagittal reconstructions were performed. Exposure: One or more of the following individualized dose reduction techniques were utilized for this examination: 1. Automated exposure control 2. Adjustment of the mA and/or kV according to patient size 3. Use of iterative reconstruction technique. Findings: Head CT: No intracranial hemorrhage. No mass effect. No hydrocephalus. Unchanged left frontal lobe calcification with adjacent hypoattenuation. Imaged orbits are unremarkable. Imaged paranasal sinuses and mastoid air cells are clear. Cervical spine CT: Straightening of normal cervical lordosis. Otherwise, normal alignment. Normal vertebral body height. No fracture. Soft tissues unremarkable. Impression: Head CT: 1. No acute intracranial abnormality. 2. Left frontal calcification with adjacent encephalomalacia, unchanged compared to prior. Cervical spine CT: 1. No acute fracture or subluxation of the cervical spine. Electronically signed by: Marin Oliveros DO (08/19/2019 1:41 PM) [id number]
== END | disposition home or self-care (01) ==
LOC: CT 14:04
PROVIDERS: ATTEND Psychiatry & Neurology Neurology
DX: G93.89 Other specified disorders of brain (principal); M54.2 Cervicalgia
CPT/HCPCS: 70450; 72125

== ENCOUNTER 2020-05-25 06:52 | Observation (INO) | payer SELFPAY ==
[~2020-05-25] VITALS: Ht 162.6 cm; Wt 66.4 kg
[2020-05-25] MEDS ORDERED: IV NORMAL SALINE 1000ML BAG 1,000 ML IV ONE ×2 (07:30→18:00)
--- NOTE | 2020-05-25 07:41 | RAD ---
EXAM: CHEST 1 VIEW History: Shortness of breath COMPARISON: 04/29/2019 TECHNIQUE: Single portable radiograph of the chest FINDINGS: The cardiac silhouette is unremarkable. The lungs are clear bilaterally. The costophrenic sulci are clear and well demarcated. IMPRESSION: No radiographic evidence of an acute cardiopulmonary process. Electronically signed by: Lj Palmer MD (05/25/2020 7:38 AM) [id number]
[2020-05-25 07:44] LABS: BASO # 0.2 x10^3/uL (0.0-0.2); BASO % 1 % (0-3); EOS # 0.4 x10^3/uL (0.0-0.7); EOS % 2 % (0-3); HEMATOCRIT 50.6 % (39.0-53.0); HEMOGLOBIN 16.1 g/dL (13.0-17.5); LYMPH # 10.2 x10^3/uL (1.0-4.8); LYMPH % 39 % (24-48); MEAN CORPUSCULAR HEMOGLOBIN 29 pg (25-35); MEAN CORPUSCULAR HGB CONC 32 g/dL (31-37); MEAN CORPUSCULAR VOLUME 93 fL (79-100); MONO # 2.1 x10^3/uL (0.0-1.1); MONO % 8 % (0-9); NEUT # 13.1 x10^3/uL (1.8-7.7); NEUT % 51 % (31-73); PLATELET COUNT 318 x10^3/uL (140-400); RED BLOOD COUNT 5.46 x10^6/uL (4.30-5.70); RED CELL DISTRIBUTION WIDTH 13.9 % (11.5-14.5)
[2020-05-25 07:51] LABS: ALBUMIN 4.3 g/dL (3.4-5.0); ALBUMIN/GLOBULIN RATIO 1.1 (1.0-1.7); CREATININE 1.6 mg/dL (0.7-1.3); GFR 49.4; POTASSIUM 4.4 mmol/L (3.5-5.1); TOTAL BILIRUBIN 0.3 mg/dL (0.2-1.0); TOTAL PROTEIN 8.2 g/dL (6.4-8.2)
--- NOTE | 2020-05-25 07:54 | PHYS DOC ---
Past Medical History Past Medical History: Seizure, Other Additional Past Medical Histor: BRAIN BLEED 04/29 Past Surgical History: No Surgical History Smoking Status: Never Smoker Alcohol Use: None Drug Use: None General Adult EDM: Chief Complaint: SEIZURE HPI: HPI: Patient is a 35-year-old male with past medical history of seizures who presents to the emergency room after having a seizure at home. Unable to obtain any history at this time as patient is postictal and no family is available. Is unsure clear how long the patient had a seizure for. We do know that they c alled for an ambulance and that he was still seizing upon ambulance arrival. He was given 10 of Versed. Review of Systems: Review of Systems: Unable to obtain due to mental status Heart Score: Risk Factors: Risk Factors: DM, Current or recent (<one month) smoker, HTN, HLP, family history of CAD, obesity. Risk Scores: Score 0 - 3: 2.5% MACE over next 6 weeks - Discharge Home Score 4 - 6: 20.3% MACE over next 6 weeks - Admit for Clinical Observation Score 7 - 10: 72.7% MACE over next 6 weeks - Early Invasive Strategies Current Medications: Current Medications Medications (Trade) Dose Ordered Sig/[facility] Start Time Stop Time Status Last Admin Dose Admin Sodium Chloride 1,000 ml @ 1,000 mls/hr 1X ONCE 05/25/20 07:30 05/25/20 08:29 05/25/20 07:11 1,000 MLS/HR Allergies: Allergies: Allergies Coded Allergies Type Severity Reaction Last Updated Verified No Known Drug Allergies 08/11/16 No Physical Exam: PE: General: Lethargic, GCS 3 well Nourished, well hydrated. HEENT: Abrasions of the lower and upper lip and inside of cheek, PERRL, airway patent, moist oral mucosa Neck: Supple, trachea midline Respiratory: Mild tachypnea, crackles at right base, no wheezing CV: Tachycardic, no murmur, cap refill <2 GI: Soft, nondistended, nontender, no masses MSK: No obvious deformities Skin: Warm, dry Neuro: GCS 3, no active seizing Current Patient Data: Labs: Laboratory Tests Test 05/25/20 07:07 White Blood Count 26.0 x10^3/uL (4.0-11.0) H Red Blood Count 5.46 x10^6/uL (4.30-5.70) Hemoglobin 16.1 g/dL (13.0-17.5) Hematocrit 50.6 % (39.0-53.0) Mean Corpuscular Volume 93 fL (79-100) Mean Corpuscular Hemoglobin 29 pg (25-35) Mean Corpuscular Hemoglobin Concent 32 g/dL (31-37) Red Cell Distribution Width 13.9 % (11.5-14.5) Platelet Count 318 x10^3/uL (140-400) Neutrophils (%) (Auto) 51 % (31-73) Lymphocytes (%) (Auto) 39 % (24-48) Monocytes (%) (Auto) 8 % (0-9) Eosinophils (%) (Auto) 2 % (0-3) Basophils (%) (Auto) 1 % (0-3) Neutrophils # (Auto) 13.1 x10^3/uL (1.8-7.7) H Lymphocytes # (Auto) 10.2 x10^3/uL (1.0-4.8) H Monocytes # (Auto) 2.1 x10^3/uL (0.0-1.1) H Eosinophils # (Auto) 0.4 x10^3/uL (0.0-0.7) Basophils # (Auto) 0.2 x10^3/uL (0.0-0.2) Platelet Estimate Pending Laboratory Tests 05/25/20 07:07 Vital Signs: Vital Signs Date Time Temp Pulse Resp B/P (MAP) Pulse Ox O2 Delivery O2 Flow Rate FiO2 05/25/20 06:52 100.0 151 24 144/73 (96) 92 Nasal Cannula 6.0 100.0 EKG: EKG: [] Radiology/Procedures: Radiology/Procedures: [] Course & Med Decision Making: Course & Med Decision Making Pertinent Labs and Imaging studies reviewed. (See chart for details) Patient is a 35-year-old male who presents to the emergency room after having a seizure at home. By the limited here history this sounds like status epilepticus. Patient did receive Versed prior to arrival. No history is available. He is a GCS of 3, however this is likely secondary to the Versed and his postictal state. Chest x-ray was done and has some mild patchiness which could relate to possible aspiration during seizure but is overall normal. Patient was observed for 20 minutes in the emergency room and was reevaluated. At that time patient did have a gag reflex but continued to be significantly depressed. This is very common with postictal states after Versed injection. Given that he has a gag reflex will reevaluate him at 8 AM to determine if at that time he has come around enough to be observed or will need to be intubated. CT head, CBC, CMP, LDH, UA, alcohol level were ordered. Is unclear at this time what medications he is on. At 8 AM patient was reevaluated and was arousable by painful stimuli. Patient is greatly improving while in the emergency room. He was able to be weaned down to a nasal cannula and then to room air. He does have a headache. This will be treated here in the emergency room. I will start him back on seizure medication. Patient's test results and vitals while in the ED were fully reviewed and discussed with the patient. Patient is stable and at this time does not need admission to the hospital. We have discussed strict return precautions and the importance of following up with their Primary Care Physician. Patient stated understanding and was given an opportunity to ask any questions. Patient is in agreement with plan. Dragon Disclaimer: Dragon Disclaimer: This electronic medical record was generated, in whole or in part, using a voice recognition dictation system. Critical Care Time Critical Care: Authorized and Performed by: Beba Cameron MD Total critical care time: approximately 45 minutes Due to a high probability of clinically significant, life threatening deterioration, the patient required my highest level of preparedness to intervene emergently and I personally spent this critical care time directly and personally managing the patient. This critical care time included obtaining a history; examining the patient; pulse oximetry; ventilator management if necessary; ordering and review of studies; arranging urgent treatment with development of a management plan; evaluation of patient's response to treatment; frequent reassessment; discussion with patient/family; and, discussions with other providers. This critical care time was performed to assess and manage the high probability of imminent, life-threatening deterioration that could result in multi-organ failure. It was exclusive of separately billable procedures and treating other patients and teaching time. Please see MDM section and the rest of the note for further information on patient assessment and treatment. Departure Departure Impression: Primary Impression: Status epilepticus, generalized convulsive Additional Impression: TACHYCARDIA, UNSPECIFIED Disposition: HOME, SELF-CARE Condition: IMPROVED Referrals: NO PCP (PCP) Patient Instructions: Seizure, Adult Scripts Levetiracetam (KEPPRA) 750 Mg Tablet 750 MG PO BID for 30 Days, #60 TAB 6 Refills Prov: BEBA CAMERON MD 05/25/20 Justicifation of Admission Dx: Justifications for Admission: Justification of Admission Dx: Yes BEBA CAMERON MD May 25, 2020 07:54
[2020-05-25 08:00] LABS: BILIRUBIN,URINE NEGATIVE (NEG); CLARITY,URINE CLEAR; COLOR,URINE YELLOW; NITRITE,URINE NEGATIVE (NEG); PH,URINE 5.5 (<5.0-8.0); PROTEIN,URINE 100 mg/dL (NEG-TRACE); UROBILINOGEN,URINE 0.2 mg/dL (0.2 mg/dL)
[2020-05-25 08:09] LABS: AMORPHOUS SEDIMENT,UR PRESENT /HPF; BACTERIA,URINE 0 /HPF (0-FEW); BARBITURATES NEG (NEG); BENZODIAZEPINES POS (NEG); CANNABINOIDS NEG (NEG); COCAINE NEG (NEG); METHADONE NEG (NEG); OPIATES NEG (NEG); PHENCYCLIDINE NEG (NEG); WBC,URINE 0 /HPF (0-4)
[2020-05-25] MEDS ORDERED: ETOMIDATE 20 MG/10 ML VIAL. IV ONE (08:13)
[2020-05-25] MEDS ORDERED: SUCCINYLCHOLINE 200 MG/10 ML VIAL. ONE (08:13)
[2020-05-25 08:16] LABS: AMPHETAMINE/METHAMPHETAMINE NEG (NEG)
--- NOTE | 2020-05-25 08:16 | RAD ---
CT HEAD WO CONTRAST History: Reason: status epilepticus / Spl. Instructions: / History: Comparison: August 19, 2019 Technique: Noncontrast CT imaging was performed of the head. Exposure: One or more of the following individualized dose reduction techniques were utilized for this examination: 1. Automated exposure control 2. Adjustment of the mA and/or kV according to patient size 3. Use of iterative reconstruction technique. Findings: No intracranial hemorrhage. No mass effect. No hydrocephalus. Unchanged left frontal calcification with adjacent encephalomalacia. Imaged orbits are unremarkable. Imaged paranasal sinuses and mastoid air cells are clear. No acute calvarial fracture. Impression: 1. No acute intracranial abnormality. Electronically signed by: Marin Oliveros DO (05/25/2020 8:13 AM) [id number]
[2020-05-25 08:41] LABS: % BANDS 6 % (0-9); % EOS 2 % (0-5); % LYMPHS 40 % (24-48); % METAS 1 % (0-0); % MONOS 9 % (0-10); % SEGS 42 % (35-66)
[2020-05-25 08:42] LABS: PLT ESTIMATE ADEQUATE (ADEQUATE)
[2020-05-25] MEDS ORDERED: LEVE750T41 PO (11:35)
[2020-05-25] MEDS ORDERED: KETOROLAC 30 MG/ML VIAL. IVP ONE (13:00)
--- NOTE | 2020-05-25 15:57 | EKG ---
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
[2020-05-25] MEDS ORDERED: levETIRAcetam 1,000 MG in IV DEXTROSE 5% 100ML 100 ML IV ONE (18:00)
[2020-05-25] MEDS ORDERED: ACETAMINOPHEN 500 MG TABLET PO PRN (18:00)
--- NOTE | 2020-05-25 18:40 | PDOC1 ---
History and Physical Date of Admission Date of Admission DATE: 05/25/20 TIME: 18:36 History of Present Illness History of Present Illness Mr. Negrito Mixon, is a 35-year-old male with past medical history of seizures who presents to the emergency room after a large and long seizure at home. Fmaily here, and witness a long grand-mal seizure. EMS called, reportedly gave him 10 of versed, and he was post-ictal here. Un . We do know that they called for an ambulance and that he was still seizing upon ambulance arrival Past Medical History Cardiovascular: No pertinent hx Pulmonary: No pertinent hx GI: No pertinent hx Heme/Onc: No pertinent hx Hepatobiliary: No pertinent hx Psych: No pertinent hx Rheumatologic: No pertinent hx Infectious disease: No pertinent hx Renal/: No pertinent hx Endocrine: No pertinent hx Past Surgical History Past Surgical History: No pertinent history Family History Family History: No Significant Social History Smoke: No ALCOHOL: none Drugs: None Current Problem List Problem List Problems Medical Problems: (1) R00.0 Status: Acute (2) Status epilepticus, generalized convulsive Status: Acute Current Medications Current Medications Current Medications Sodium Chloride 1,000 ml @ 1,000 mls/hr 1X ONCE IV Last administered on 05/25/20at 07:11; Start 05/25/20 at 07:30; Stop 05/25/20 at 08:29; Status DC Etomidate (Amidate) 20 mg STK-MED ONCE IV ; Start 05/25/20 at 08:13; Stop 05/25/20 at 08:13; Status DC Succinylcholine Chloride (Anectine) 200 mg STK-MED ONCE .ROUTE ; Start 05/25/20 at 08:13; Stop 05/25/20 at 08:14; Status DC Sumatriptan Succinate (Imitrex) 25 mg 1X ONCE PO Last administered on at 12:36; Start 05/25/20 at 12:30; Stop 05/25/20 at 12:31; Status DC Ketorolac Tromethamine (Toradol 30mg Vial) 30 mg 1X ONCE IVP Last administered on 05/25/20at 13:31; Start 05/25/20 at 13:00; Stop 05/25/20 at 13:05; Status DC Ringer's Solution 1,000 ml @ 100 mls/hr Q10H IV ; Start 05/25/20 at 18:00 Sodium Chloride 1,000 ml @ 1,000 mls/hr 1X ONCE IV Last administered on 05/25/20at 18:01; Start 05/25/20 at 18:00; Stop 05/25/20 at 18:59 Acetaminophen (Tylenol) 500 mg PRN Q6HRS PRN PO HEADACHE / TEMP; Start 05/25/20 at 18:00 Famotidine (Pepcid) 20 mg BID PO ; Start 05/25/20 at 21:00 Levetiracetam 1000 mg/Dextrose 110 ml @ 440 mls/hr 1X ONCE IV Last administered on 05/25/20at 18:03; Start 05/25/20 at 18:00; Stop 05/25/20 at 18:14; Status DC Levetiracetam (Keppra) 750 mg BID PO ; Start 05/26/20 at 09:00 Levetiracetam (Keppra) 750 mg BID PO ; Start 05/26/20 at 09:00; Status UNV Active Scripts Active Keppra (Levetiracetam) 750 Mg Tablet 750 Mg PO BID 30 Days Pepcid (Famotidine) 20 Mg Tablet 20 Mg PO BID Acetaminophen 500 Mg Tablet 500 Mg PO PRN Q6HRS PRN 14 Days Keppra (Levetiracetam) 250 Mg Tablet 750 Mg PO BID 30 Days Levsin-Sl (Hyoscyamine Sulfate) 0.125 Mg Tab.subl 1 Tab SL PRN Q4HRS PRN Ondansetron Odt (Ondansetron) 4 Mg Tab.rapdis 1 Tab PO PRN Q6-8HRS PRN Loperamide (Loperamide Hcl) 2 Mg Capsule 2 Mg PO UD PRN Take one capsule after each unformed stool. Do not take more than 8 capsules in one day. Pepcid (Famotidine) 20 Mg Tablet 20 Mg PO BID Allergies Allergies: Coded Allergies: No Known Drug Allergies (Unverified , 08/11/16) ROS General: No: Chills, Night Sweats, Fatigue, Malaise, Appetite, Other PSYCHOLOGICAL ROS: YES: Anxiety; No: Behavioral Disorder, Concentration difficultie, Decreased libido, Depression, Disorientation, Hallucinations, Hostility, Irritablity, Memory difficulties, Mood Swings, Obsessive thoughts, Physical abuse, Sexual abuse, Sleep disturbances, Suicidal ideation, Other Respiratory: No: Cough, Hemoptysis, Orthopnea, Pleuritic Pain, Shortness of breath, SOB with excertion, Sputum Changes, Stridor, Tachypnea, Wheezing, Other Cardiovascular: No Chest Pain, No Palpitations, No Orthopnea, No Paroxysmal Noc. Dyspnea, No Edema, No Lt Headedness, No Other Gastrointestinal: No Nausea, No Vomiting, No Abdominal Pain, No Diarrhea, No Constipation, No Melena, No Hematochezia, No Other Genitourinary: No Dysuria, No Frequency, No Incontinence, No Hematuria, No Retention, No Discharge, No Urgency, No Pain, No Flank Pain, No Other, No , No , No , No , No , No , No Musculoskeletal: No Gait Disturbance, No Joint Pain, No Joint Stiffness, No Joint Swelling, No Muscle Pain, No Muscular Weakness, No Pain In:, No Swelling In:, No Other Neurological: No Behavorial Changes, No Bowel/Bladder ControlChng, No Con fusion, No Dizziness, No Gait Disturbance, No Headaches, No Impaired Coord/balance, No Memory Loss, No Numbness/Tingling, No Seizures, No Speech Problems, No Tremors, No Visual Changes, No Weakness, No Other Skin: Yes Dry Skin; No Eczema, No Hair Changes, No Lumps, No Mole Changes, No Mottling, No Nail Changes, No Pruritus, No Rash, No Skin Lesion Changes, No Other, No Acne Physical Exam General: Alert, Oriented X3, Cooperative, No acute distress HEENT: Atraumatic, PERRLA, Mucous membr. moist/pink Lungs: Clear to auscultation Heart: S1S2, RRR, no gallops Abdomen: Normal bowel sounds Extremities: No cyanosis, No edema Skin: No rashes, No significant lesion Neuro: Normal speech, Normal tone Psych/Mental Status: Mood NL Vitals Vitals Vital Signs Date Time Temp Pulse Resp B/P (MAP) Pulse Ox O2 Delivery O2 Flow Rate FiO2 05/25/20 12:00 98 28 99 05/25/20 07:11 99.8 99.8 05/25/20 06:52 144/73 (96) Nasal Cannula 6.0 Labs Labs Laboratory Tests Test 05/25/20 07:07 05/25/20 07:45 White Blood Count 26.0 x10^3/uL (4.0-11.0) Red Blood Count 5.46 x10^6/uL (4.30-5.70) Hemoglobin 16.1 g/dL (13.0-17.5) Hematocrit 50.6 % (39.0-53.0) Mean Corpuscular Volume 93 fL (79-100) Mean Corpuscular Hemoglobin 29 pg (25-35) Mean Corpuscular Hemoglobin Concent 32 g/dL (31-37) Red Cell Distribution Width 13.9 % (11.5-14.5) Platelet Count 318 x10^3/uL (140-400) Neutrophils (%) (Auto) 51 % (31-73) Lymphocytes (%) (Auto) 39 % (24-48) Monocytes (%) (Auto) 8 % (0-9) Eosinophils (%) (Auto) 2 % (0-3) Basophils (%) (Auto) 1 % (0-3) Neutrophils # (Auto) 13.1 x10^3/uL (1.8-7.7) Lymphocytes # (Auto) 10.2 x10^3/uL (1.0-4.8) Monocytes # (Auto) 2.1 x10^3/uL (0.0-1.1) Eosinophils # (Auto) 0.4 x10^3/uL (0.0-0.7) Basophils # (Auto) 0.2 x10^3/uL (0.0-0.2) Segmented Neutrophils % 42 % (35-66) Band Neutrophils % 6 % (0-9) Lymphocytes % 40 % (24-48) Monocytes % 9 % (0-10) Eosinophils % 2 % (0-5) Metamyelocytes % 1 % (0-0) Platelet Estimate Adequate (ADEQUATE) Sodium Level 141 mmol/L (136-145) Potassium Level 4.4 mmol/L (3.5-5.1) Chloride Level 101 mmol/L (98-107) Carbon Dioxide Level 7 mmol/L (21-32) Anion Gap 33 (6-14) Blood Urea Nitrogen 19 mg/dL (8-26) Creatinine 1.6 mg/dL (0.7-1.3) Estimated GFR (Cockcroft-Gault) 49.4 BUN/Creatinine Ratio 12 (6-20) Glucose Level 221 mg/dL (70-99) Calcium Level 9.0 mg/dL (8.5-10.1) Total Bilirubin 0.3 mg/dL (0.2-1.0) Aspartate Amino Transf (AST/SGOT) 30 U/L (15-37) Alanine Aminotransferase (ALT/SGPT) 37 U/L (16-63) Alkaline Phosphatase 121 U/L (46-116) Lactate Dehydrogenase 359 U/L (85-227) Troponin I Quantitative < 0.017 ng/mL (0.000-0.055) Total Protein 8.2 g/dL (6.4-8.2) Albumin 4.3 g/dL (3.4-5.0) Albumin/Globulin Ratio 1.1 (1.0-1.7) Ethyl Alcohol Level < 10 mg/dL (0-10) Urine Collection Type U cath Urine Color Yellow Urine Clarity Clear Urine pH 5.5 (<5.0-8.0) Urine Specific [place] 1.015 (1.000-1.030) Urine Protein 100 mg/dL (NEG-TRACE) Urine Glucose (UA) Negative mg/dL (NEG) Urine Ketones (Stick) Negative mg/dL (NEG) Urine Blood Large (NEG) Urine Nitrite Negative (NEG) Urine Bilirubin Negative (NEG) Urine Urobilinogen Dipstick 0.2 mg/dL (0.2 mg/dL) Urine Leukocyte Esterase Negative (NEG) Urine RBC 3-5 /HPF (0-2) Urine WBC 0 /HPF (0-4) Urine Amorphous Sediment Present /HPF Urine Bacteria 0 /HPF (0-FEW) Urine Opiates Screen Neg (NEG) Urine Methadone Screen Neg (NEG) Urine Barbiturates Neg (NEG) Urine Phencyclidine Screen Neg (NEG) Urine Amphetamine/Methamphetamine Neg (NEG) Urine Benzodiazepines Screen Pos (NEG) Urine Cocaine Screen Neg (NEG) Urine Cannabinoids Screen Neg (NEG) Urine Ethyl Alcohol Neg (NEG) Laboratory Tests Test 05/25/20 07:07 05/25/20 07:45 White Blood Count 26.0 x10^3/uL (4.0-11.0) Red Blood Count 5.46 x10^6/uL (4.30-5.70) Hemoglobin 16.1 g/dL (13.0-17.5) Hematocrit 50.6 % (39.0-53.0) Mean Corpuscular Volume 93 fL (79-100) Mean Corpuscular Hemoglobin 29 pg (25-35) Mean Corpuscular Hemoglobin Concent 32 g/dL (31-37) Red Cell Distribution Width 13.9 % (11.5-14.5) Platelet Count 318 x10^3/uL (140-400) Neutrophils (%) (Auto) 51 % (31-73) Lymphocytes (%) (Auto) 39 % (24-48) Monocytes (%) (Auto) 8 % (0-9) Eosinophils (%) (Auto) 2 % (0-3) Basophils (%) (Auto) 1 % (0-3) Neutrophils # (Auto) 13.1 x10^3/uL (1.8-7.7) Lymphocytes # (Auto) 10.2 x10^3/uL (1.0-4.8) Monocytes # (Auto) 2.1 x10^3/uL (0.0-1.1) Eosinophils # (Auto) 0.4 x10^3/uL (0.0-0.7) Basophils # (Auto) 0.2 x10^3/uL (0.0-0.2) Segmented Neutrophils % 42 % (35-66) Band Neutrophils % 6 % (0-9) Lymphocytes % 40 % (24-48) Monocytes % 9 % (0-10) Eosinophils % 2 % (0-5) Metamyelocytes % 1 % (0-0) Platelet Estimate Adequate (ADEQUATE) Sodium Level 141 mmol/L (136-145) Potassium Level 4.4 mmol/L (3.5-5.1) Chloride Level 101 mmol/L (98-107) Carbon Dioxide Level 7 mmol/L (21-32) Anion Gap 33 (6-14) Blood Urea Nitrogen 19 mg/dL (8-26) Creatinine 1.6 mg/dL (0.7-1.3) Estimated GFR (Cockcroft-Gault) 49.4 BUN/Creatinine Ratio 12 (6-20) Glucose Level 221 mg/dL (70-99) Calcium Level 9.0 mg/dL (8.5-10.1) Total Bilirubin 0.3 mg/dL (0.2-1.0) Aspartate Amino Transf (AST/SGOT) 30 U/L (15-37) Alanine Aminotransferase (ALT/SGPT) 37 U/L (16-63) Alkaline Phosphatase 121 U/L (46-116) Lactate Dehydrogenase 359 U/L (85-227) Troponin I Quantitative < 0.017 ng/mL (0.000-0.055) Total Protein 8.2 g/dL (6.4-8.2) Albumin 4.3 g/dL (3.4-5.0) Albumin/Globulin Ratio 1.1 (1.0-1.7) Ethyl Alcohol Level < 10 mg/dL (0-10) Urine Collection Type U cath Urine Color Yellow Urine Clarity Clear Urine pH 5.5 (<5.0-8.0) Urine Specific [place] 1.015 (1.000-1.030) Urine Protein 100 mg/dL (NEG-TRACE) Urine Glucose (UA) Negative mg/dL (NEG) Urine Ketones (Stick) Negative mg/dL (NEG) Urine Blood Large (NEG) Urine Nitrite Negative (NEG) Urine Bilirubin Negative (NEG) Urine Urobilinogen Dipstick 0.2 mg/dL (0.2 mg/dL) Urine Leukocyte Esterase Negative (NEG) Urine RBC 3-5 /HPF (0-2) Urine WBC 0 /HPF (0-4) Urine Amorphous Sediment Present /HPF Urine Bacteria 0 /HPF (0-FEW) Urine Opiates Screen Neg (NEG) Urine Methadone Screen Neg (NEG) Urine Barbiturates Neg (NEG) Urine Phencyclidine Screen Neg (NEG) Urine Amphetamine/Methamphetamine Neg (NEG) Urine Benzodiazepines Screen Pos (NEG) Urine Cocaine Screen Neg (NEG) Urine Cannabinoids Screen Neg (NEG) Urine Ethyl Alcohol Neg (NEG) VTE Prophylaxis Ordered VTE Prophylaxis Devices: No VTE Pharmacological Prophylaxi: Yes Assessment/Plan Assessment/Plan status epilepticus, known prior seizure disorder now in post-ictal after large dose benzo given on keppra 750 BID at home, will dose 1000 IV now, then resume home dose, consult neuro to eval. admit cr and LDH up, acute vasomotor nephropathy, 2 liters NS bolus ordered, then 100/hr LR acute metabolic acidosis, check CK an dfull labs in AM Justicifation of Admission Dx: Justifications for Admission: Justification of Admission Dx: Yes IBRAHIMA SMITH MD May 25, 2020 18:40
[2020-05-25 20:24] VITALS: BP 116/75
[2020-05-25] MEDS: FAMOTIDINE 20 MG TABLET. PO SCH (20:49)
[2020-05-25] MEDS: IV RINGERS,LACTATED 1000ML 1,000 ML IV SCH (20:49)
[2020-05-25 23:06] VITALS: BP 126/76
[2020-05-26 03:00] VITALS: BP 116/74
[2020-05-26] MEDS: IV RINGERS,LACTATED 1000ML 1,000 ML IV SCH ×2 (06:33→14:00)
[2020-05-26 07:00] VITALS: BP 116/67
[2020-05-26 08:42] LABS: BASO % 0 % (0-3); EOS % 0 % (0-3); HEMATOCRIT 39.3 % (39.0-53.0); HEMOGLOBIN 13.3 g/dL (13.0-17.5); LYMPH % 7 % (24-48); MEAN CORPUSCULAR HEMOGLOBIN 29 pg (25-35); MEAN CORPUSCULAR HGB CONC 34 g/dL (31-37); MEAN CORPUSCULAR VOLUME 86 fL (79-100); MONO # 1.1 x10^3/uL (0.0-1.1); MONO % 7 % (0-9); NEUT # 13.6 x10^3/uL (1.8-7.7); NEUT % 86 % (31-73); PLATELET COUNT 185 x10^3/uL (140-400); RED BLOOD COUNT 4.56 x10^6/uL (4.30-5.70); RED CELL DISTRIBUTION WIDTH 13.4 % (11.5-14.5); WHITE BLOOD COUNT 15.8 x10^3/uL (4.0-11.0)
[2020-05-26] MEDS ORDERED: levETIRAcetam 250 MG TABLET PO SCH (09:00)
[2020-05-26] MEDS ORDERED: levETIRAcetam 500 MG TABLET PO SCH (09:00)
[2020-05-26] MEDS ORDERED: ENOXAPARIN 40 MG/0.4 ML SYRINGE. SQ SCH (09:00)
[2020-05-26 09:04] LABS: ALBUMIN/GLOBULIN RATIO 0.9 (1.0-1.7); CALCIUM 7.7 mg/dL (8.5-10.1); GFR 23.9; POTASSIUM 3.5 mmol/L (3.5-5.1); TOTAL BILIRUBIN 0.8 mg/dL (0.2-1.0); TOTAL PROTEIN 6.2 g/dL (6.4-8.2)
[2020-05-26 11:00] VITALS: BP 119/74
--- NOTE | 2020-05-26 12:01 | PDOC ---
Provider Note Provider Note Work Note Patient was hospitalized at [facility] 2019 for a seizure. No heavy machinery, working at heights, or driving until 6 months without a seizure Justicifation of Admission Dx: Justifications for Admission: Justification of Admission Dx: Yes JOSE LOCK MD May 26, 2020 12:01
[2020-05-26] MEDS ORDERED: LEVE750T41 PO (12:04)
--- NOTE | 2020-05-26 12:07 | PDOC3 ---
Discharge Summary Visit Information Date of Admission: May 25, 2020 Date of Discharge: May 26, 2020 Final Diagnosis status epilepticus, known prior seizure disorder now in post-ictal after large dose benzo given he has not been complaint with meds Justicifation of Admission Dx: status seizure Problems Medical Problems: (1) R00.0 Status: Acute (2) Status epilepticus, generalized convulsive Status: Acute Brief Hospital Course Allergies Allergies Coded Allergies Type Severity Reaction Last Updated Verified No Known Drug Allergies 08/11/16 No Vital Signs Vital Signs Date Time Temp Pulse Resp B/P (MAP) Pulse Ox O2 Delivery O2 Flow Rate FiO2 05/26/20 11:00 98.1 74 18 119/74 (89) 97 Room Air 98.1 05/25/20 23:06 6.0 Lab Results Laboratory Tests Test 05/25/20 07:07 05/25/20 07:45 05/26/20 08:25 White Blood Count 26.0 x10^3/uL (4.0-11.0) 15.8 x10^3/uL (4.0-11.0) Red Blood Count 5.46 x10^6/uL (4.30-5.70) 4.56 x10^6/uL (4.30-5.70) Hemoglobin 16.1 g/dL (13.0-17.5) 13.3 g/dL (13.0-17.5) Hematocrit 50.6 % (39.0-53.0) 39.3 % (39.0-53.0) Mean Corpuscular Volume 93 fL (79-100) 86 fL (79-100) Mean Corpuscular Hemoglobin 29 pg (25-35) 29 pg (25-35) Mean Corpuscular Hemoglobin Concent 32 g/dL (31-37) 34 g/dL (31-37) Red Cell Distribution Width 13.9 % (11.5-14.5) 13.4 % (11.5-14.5) Platelet Count 318 x10^3/uL (140-400) 185 x10^3/uL (140-400) Neutrophils (%) (Auto) 51 % (31-73) 86 % (31-73) Lymphocytes (%) (Auto) 39 % (24-48) 7 % (24-48) Monocytes (%) (Auto) 8 % (0-9) 7 % (0-9) Eosinophils (%) (Auto) 2 % (0-3) 0 % (0-3) Basophils (%) (Auto) 1 % (0-3) 0 % (0-3) Neutrophils # (Auto) 13.1 x10^3/uL (1.8-7.7) 13.6 x10^3/uL (1.8-7.7) Lymphocytes # (Auto) 10.2 x10^3/uL (1.0-4.8) 1.0 x10^3/uL (1.0-4.8) Monocytes # (Auto) 2.1 x10^3/uL (0.0-1.1) 1.1 x10^3/uL (0.0-1.1) Eosinophils # (Auto) 0.4 x10^3/uL (0.0-0.7) 0.0 x10^3/uL (0.0-0.7) Basophils # (Auto) 0.2 x10^3/uL (0.0-0.2) 0.0 x10^3/uL (0.0-0.2) Segmented Neutrophils % 42 % (35-66) Band Neutrophils % 6 % (0-9) Lymphocytes % 40 % (24-48) Monocytes % 9 % (0-10) Eosinophils % 2 % (0-5) Metamyelocytes % 1 % (0-0) Platelet Estimate Adequate (ADEQUATE) Sodium Level 141 mmol/L (136-145) 138 mmol/L (136-145) Potassium Level 4.4 mmol/L (3.5-5.1) 3.5 mmol/L (3.5-5.1) Chloride Level 101 mmol/L (98-107) 107 mmol/L (98-107) Carbon Dioxide Level 7 mmol/L (21-32) 22 mmol/L (21-32) Anion Gap 33 (6-14) 9 (6-14) Blood Urea Nitrogen 19 mg/dL (8-26) 32 mg/dL (8-26) Creatinine 1.6 mg/dL (0.7-1.3) 3.0 mg/dL (0.7-1.3) Estimated GFR (Cockcroft-Gault) 49.4 23.9 BUN/Creatinine Ratio 12 (6-20) 11 (6-20) Glucose Level 221 mg/dL (70-99) 134 mg/dL (70-99) Calcium Level 9.0 mg/dL (8.5-10.1) 7.7 mg/dL (8.5-10.1) Total Bilirubin 0.3 mg/dL (0.2-1.0) 0.8 mg/dL (0.2-1.0) Aspartate Amino Transf (AST/SGOT) 30 U/L (15-37) 50 U/L (15-37) Alanine Aminotransferase (ALT/SGPT) 37 U/L (16-63) 31 U/L (16-63) Alkaline Phosphatase 121 U/L (46-116) 65 U/L (46-116) Lactate Dehydrogenase 359 U/L (85-227) Troponin I Quantitative < 0.017 ng/mL (0.000-0.055) Total Protein 8.2 g/dL (6.4-8.2) 6.2 g/dL (6.4-8.2) Albumin 4.3 g/dL (3.4-5.0) 3.0 g/dL (3.4-5.0) Albumin/Globulin Ratio 1.1 (1.0-1.7) 0.9 (1.0-1.7) Ethyl Alcohol Level < 10 mg/dL (0-10) Urine Collection Type U cath Urine Color Yellow Urine Clarity Clear Urine pH 5.5 (<5.0-8.0) Urine Specific [place] 1.015 (1.000-1.030) Urine Protein 100 mg/dL (NEG-TRACE) Urine Glucose (UA) Negative mg/dL (NEG) Urine Ketones (Stick) Negative mg/dL (NEG) Urine Blood Large (NEG) Urine Nitrite Negative (NEG) Urine Bilirubin Negative (NEG) Urine Urobilinogen Dipstick 0.2 mg/dL (0.2 mg/dL) Urine Leukocyte Esterase Negative (NEG) Urine RBC 3-5 /HPF (0-2) Urine WBC 0 /HPF (0-4) Urine Amorphous Sediment Present /HPF Urine Bacteria 0 /HPF (0-FEW) Urine Opiates Screen Neg (NEG) Urine Methadone Screen Neg (NEG) Urine Barbiturates Neg (NEG) Urine Phencyclidine Screen Neg (NEG) Urine Amphetamine/Methamphetamine Neg (NEG) Urine Benzodiazepines Screen Pos (NEG) Urine Cocaine Screen Neg (NEG) Urine Cannabinoids Screen Neg (NEG) Urine Ethyl Alcohol Neg (NEG) Creatine Kinase 2836 U/L (39-308) Laboratory Tests Test 05/26/20 08:25 White Blood Count 15.8 x10^3/uL (4.0-11.0) Red Blood Count 4.56 x10^6/uL (4.30-5.70) Hemoglobin 13.3 g/dL (13.0-17.5) Hematocrit 39.3 % (39.0-53.0) Mean Corpuscular Volume 86 fL (79-100) Mean Corpuscular Hemoglobin 29 pg (25-35) Mean Corpuscular Hemoglobin Concent 34 g/dL (31-37) Red Cell Distribution Width 13.4 % (11.5-14.5) Platelet Count 185 x10^3/uL (140-400) Neutrophils (%) (Auto) 86 % (31-73) Lymphocytes (%) (Auto) 7 % (24-48) Monocytes (%) (Auto) 7 % (0-9) Eosinophils (%) (Auto) 0 % (0-3) Basophils (%) (Auto) 0 % (0-3) Neutrophils # (Auto) 13.6 x10^3/uL (1.8-7.7) Lymphocytes # (Auto) 1.0 x10^3/uL (1.0-4.8) Monocytes # (Auto) 1.1 x10^3/uL (0.0-1.1) Eosinophils # (Auto) 0.0 x10^3/uL (0.0-0.7) Basophils # (Auto) 0.0 x10^3/uL (0.0-0.2) Sodium Level 138 mmol/L (136-145) Potassium Level 3.5 mmol/L (3.5-5.1) Chloride Level 107 mmol/L (98-107) Carbon Dioxide Level 22 mmol/L (21-32) Anion Gap 9 (6-14) Blood Urea Nitrogen 32 mg/dL (8-26) Creatinine 3.0 mg/dL (0.7-1.3) Estimated GFR (Cockcroft-Gault) 23.9 BUN/Creatinine Ratio 11 (6-20) Glucose Level 134 mg/dL (70-99) Calcium Level 7.7 mg/dL (8.5-10.1) Total Bilirubin 0.8 mg/dL (0.2-1.0) Aspartate Amino Transf (AST/SGOT) 50 U/L (15-37) Alanine Aminotransferase (ALT/SGPT) 31 U/L (16-63) Alkaline Phosphatase 65 U/L (46-116) Creatine Kinase 2836 U/L (39-308) Total Protein 6.2 g/dL (6.4-8.2) Albumin 3.0 g/dL (3.4-5.0) Albumin/Globulin Ratio 0.9 (1.0-1.7) Brief Hospital Course Mr. Mixon is a 35 old admit after 30 min seizure at home, grand mal on keppra 750 BID at home, will dose 1000 IV now, then resume home dose, consult neuro to eval. admit cr and LDH up, acute vasomotor nephropathy, 2 liters NS bolus ordered, then 100/hr LR acute metabolic acidosis, Discharge Information Condition at Discharge: Improved Follow Up: Weeks Disposition/Orders: D/C to Home Scheduled Famotidine (Pepcid) 20 Mg Tablet, 20 MG PO BID, #30 Prescribed by: CINTHYA MCKEON on 08/11/162346 Last Action: HELD on 05/25/201749 by IBRAHIMA SMITH Famotidine (Pepcid) 20 Mg Tablet, 20 MG PO BID, #14 Prescribed by: RE FONTANA MD on 07/16/19 174 Last Action: Continued on 05/25/201749 by IBRAHIMA SMITH Levetiracetam (Keppra) 750 Mg Tablet, 750 MG PO BID for seizure for 30 Days, #60 Ref 6 Prescribed by: IBRAHIMA SMITH on 05/26/20 1204 Scheduled PRN Acetaminophen (Acetaminophen) 500 Mg Tablet, 500 MG PO PRN Q6HRS PRN for HEADACHE / TEMP for 14 Days, #30 Prescribed by: KODAK BLANK MD on 05/05/19 1244 Last Action: Continued on 05/25/201749 by IBRAHIMA SMITH Hyoscyamine Sulfate (Levsin-Sl) 0.125 Mg Tab.subl, 1 TAB SL PRN Q4HRS PRN for PAIN, #20 Prescribed by: LUKASZ ROGERS D.O. on 02/07/19213 Last Action: HELD on 05/25/201749 by IBRAHIMA SMITH Loperamide Hcl (Loperamide) 2 Mg Capsule, 2 MG PO UD PRN for DIARRHEA, #1 Take one capsule after each unformed stool. Do not take more than 8 capsules in one day. Prescribed by: CINTHYA MCKEON on 09/29/172306 Last Action: HELD on 05/25/201749 by IBRAHIMA SMITH Ondansetron (Ondansetron Odt) 4 Mg Tab.rapdis, 1 TAB PO PRN Q6-8HRS PRN for NAUSEA, #16 Prescribed by: LUKASZ ROGERS D.O. on 02/07/19213 Last Action: HELD on 05/25/201749 by IBRAHIMA SMITH Discontinued Medications Levetiracetam (Keppra) 250 Mg Tablet, 750 MG PO BID for seizures for 30 Days, #180 Prescribed by: KODAK BLANK MD on 05/05/19 1244 Last Action: Continued on 05/25/201751 by IBRAHIMA SMITH Patient Instructions Patient Instructions < 30 min discussed with neuro consult Justicifation of Admission Dx: Justifications for Admission: Justification of Admission Dx: Yes IBRAHIMA SMITH MD May 26, 2020 12:07
--- NOTE | 2020-05-26 12:38 | PDOC2 ---
NEUROLOGY CONSULT Date of Service DOS: DATE: 05/26/20 TIME: 12:32 Reason for Consult Reason for Consult: Seizure Referring Physician Referring Physician: Dr. Driscoll Source Source: Chart review, Patient History of Present Illness History of Present Illness The patient speaks only Cook Islander, we used a professional product tester. 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 He has been on levetiracetam 750 mg BID, at first he says he has not missed any doses, next he tells me that he ran out in October. He had a seizure yesterday with prolonged postictal state, this was billed as status epilepticus, but he did not have any additional seizures. The last seizure before that was 2 months ago. He is willing to resume the levetiracetam. He did not have any side effects. There is no history of stroke or head injury. 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 Current Medications Current Medications Current Medications Sodium Chloride 1,000 ml @ 1,000 mls/hr 1X ONCE IV Last administered on 05/25/20at 07:11; Start 05/25/20 at 07:30; Stop 05/25/20 at 08:29; Status DC Etomidate (Amidate) 20 mg STK-MED ONCE IV ; Start 05/25/20 at 08:13; Stop 05/25/20 at 08:13; Status DC Succinylcholine Chloride (Anectine) 200 mg STK-MED ONCE .ROUTE ; Start 05/25/20 at 08:13; Stop 05/25/20 at 08:14; Status DC Sumatriptan Succinate (Imitrex) 25 mg 1X ONCE PO Last administered on 05/25/20at 12:36; Start 05/25/20 at 12:30; Stop 05/25/20 at 12:31; Status DC Ketorolac Tromethamine (Toradol 30mg Vial) 30 mg 1X ONCE IVP Last administered on 05/25/20at 13:31; Start 05/25/20 at 13:00; Stop 05/25/20 at 13:05; Status DC Ringer's Solution 1,000 ml @ 100 mls/hr Q10H IV Last administered on 05/26/20at 06:33; Start 05/25/20 at 18:00 Sodium Chloride 1,000 ml @ 1,000 mls/hr 1X ONCE IV Last administered on 05/25/20at 18:01; Start 05/25/20 at 18:00; Stop 05/25/20 at 18:59; Status DC Acetaminophen (Tylenol) 500 mg PRN Q6HRS PRN PO HEADACHE / TEMP; Start 05/25/20 at 18:00 Famotidine (Pepcid) 20 mg BID PO Last administered on 05/25/20at 20:49; Start 05/25/20 at 21:00 Levetiracetam 1000 mg/Dextrose 110 ml @ 440 mls/hr 1X ONCE IV Last administered on 05/25/20at 18:03; Start 05/25/20 at 18:00; Stop 05/25/20 at 18:14; Status DC Levetiracetam (Keppra) 750 mg BID PO ; Start 05/26/20 at 09:00 Levetiracetam (Keppra) 750 mg BID PO ; Start 05/26/20 at 09:00; Status UNV Enoxaparin Sodium (Lovenox Per Pharmacy Prophylaxis Dosing) 1 each PRN DAILY PRN MC SEE COMMENTS; Start 05/25/20 at 18:45 Enoxaparin Sodium (Lovenox 40mg Syringe) 40 mg Q24H SQ ; Start 05/26/20 at 09:00 Active Scripts Active Keppra (Levetiracetam) 750 Mg Tablet 750 Mg PO BID 30 Days Pepcid (Famotidine) 20 Mg Tablet 20 Mg PO BID Acetaminophen 500 Mg Tablet 500 Mg PO PRN Q6HRS PRN 14 Days Levsin-Sl (Hyoscyamine Sulfate) 0.125 Mg Tab.subl 1 Tab SL PRN Q4HRS PRN Ondansetron Odt (Ondansetron) 4 Mg Tab.rapdis 1 Tab PO PRN Q6-8HRS PRN Loperamide (Loperamide Hcl) 2 Mg Capsule 2 Mg PO UD PRN Take one capsule after each unformed stool. Do not take more than 8 capsules in one day. Pepcid (Famotidine) 20 Mg Tablet 20 Mg PO BID Allergies Allergies: Coded Allergies: No Known Drug Allergies (Unverified , 08/11/16) ROS Review of System Negative for fever, chills, weight loss, shortness of breath, chest pain, indigestion, hematochezia, melena, and dysuria. Full 14-point review of systems is negative. Physical Exam Physical Examination General: Well-developed, well-nourished male in no acute distress HEENT: Normocephalic andatraumatic. Temporal arteriespulsatile and nontender. Neck: Supple without bruit, no meningismus Musculoskeletal: Stability:see neurologic. Gait exam:see neurologic. Tone:see neurologic.Strength:see neurologic. Neurological: Mental Status:intact, orientation, memory, attention span/concentration, language, fund of knowledge normal. Cranial Nerves:Pupils equal and reactive to light, extraocular movements areintact, visual goodman are full to confrontation. Facial sensation is normal. There is no facial asymmetry. Vestibulo-ocular reflex is intact. Palate elevates and tongue protrudes in midline. All other cranial related problems are negative except as mentioned before.Reflexes:2+ and symmetric with flexor plantar responses. Motor:5/5 strength with normal tone and bulk. Coordination:Finger-nose finger and [id number]-[id number] testing are normal. Rapid alternating movements and fine finger movements are intact. Gait:Normal, including tandem. Sensory:Normal pinprick, vibration, light touch, proprioception. Vitals VITALS Vital Signs Date Time Temp Pulse Resp B/P (MAP) Pulse Ox O2 Delivery O2 Flow Rate FiO2 05/26/20 11:00 98.1 74 18 119/74 (89) 97 Room Air 98.1 05/25/20 23:06 6.0 Labs Labs Laboratory Tests Test 05/25/20 07:07 05/25/20 07:45 05/26/20 08:25 White Blood Count 26.0 x10^3/uL (4.0-11.0) 15.8 x10^3/uL (4.0-11.0) Red Blood Count 5.46 x10^6/uL (4.30-5.70) 4.56 x10^6/uL (4.30-5.70) Hemoglobin 16.1 g/dL (13.0-17.5) 13.3 g/dL (13.0-17.5) Hematocrit 50.6 % (39.0-53.0) 39.3 % (39.0-53.0) Mean Corpuscular Volume 93 fL (79-100) 86 fL (79-100) Mean Corpuscular Hemoglobin 29 pg (25-35) 29 pg (25-35) Mean Corpuscular Hemoglobin Concent 32 g/dL (31-37) 34 g/dL (31-37) Red Cell Distribution Width 13.9 % (11.5-14.5) 13.4 % (11.5-14.5) Platelet Count 318 x10^3/uL (140-400) 185 x10^3/uL (140-400) Neutrophils (%) (Auto) 51 % (31-73) 86 % (31-73) Lymphocytes (%) (Auto) 39 % (24-48) 7 % (24-48) Monocytes (%) (Auto) 8 % (0-9) 7 % (0-9) Eosinophils (%) (Auto) 2 % (0-3) 0 % (0-3) Basophils (%) (Auto) 1 % (0-3) 0 % (0-3) Neutrophils # (Auto) 13.1 x10^3/uL (1.8-7.7) 13.6 x10^3/uL (1.8-7.7) Lymphocytes # (Auto) 10.2 x10^3/uL (1.0-4.8) 1.0 x10^3/uL (1.0-4.8) Monocytes # (Auto) 2.1 x10^3/uL (0.0-1.1) 1.1 x10^3/uL (0.0-1.1) Eosinophils # (Auto) 0.4 x10^3/uL (0.0-0.7) 0.0 x10^3/uL (0.0-0.7) Basophils # (Auto) 0.2 x10^3/uL (0.0-0.2) 0.0 x10^3/uL (0.0-0.2) Segmented Neutrophils % 42 % (35-66) Band Neutrophils % 6 % (0-9) Lymphocytes % 40 % (24-48) Monocytes % 9 % (0-10) Eosinophils % 2 % (0-5) Metamyelocytes % 1 % (0-0) Platelet Estimate Adequate (ADEQUATE) Sodium Level 141 mmol/L (136-145) 138 mmol/L (136-145) Potassium Level 4.4 mmol/L (3.5-5.1) 3.5 mmol/L (3.5-5.1) Chloride Level 101 mmol/L (98-107) 107 mmol/L (98-107) Carbon Dioxide Level 7 mmol/L (21-32) 22 mmol/L (21-32) Anion Gap 33 (6-14) 9 (6-14) Blood Urea Nitrogen 19 mg/dL (8-26) 32 mg/dL (8-26) Creatinine 1.6 mg/dL (0.7-1.3) 3.0 mg/dL (0.7-1.3) Estimated GFR (Cockcroft-Gault) 49.4 23.9 BUN/Creatinine Ratio 12 (6-20) 11 (6-20) Glucose Level 221 mg/dL (70-99) 134 mg/dL (70-99) Calcium Level 9.0 mg/dL (8.5-10.1) 7.7 mg/dL (8.5-10.1) Total Bilirubin 0.3 mg/dL (0.2-1.0) 0.8 mg/dL (0.2-1.0) Aspartate Amino Transf (AST/SGOT) 30 U/L (15-37) 50 U/L (15-37) Alanine Aminotransferase (ALT/SGPT) 37 U/L (16-63) 31 U/L (16-63) Alkaline Phosphatase 121 U/L (46-116) 65 U/L (46-116) Lactate Dehydrogenase 359 U/L (85-227) Troponin I Quantitative < 0.017 ng/mL (0.000-0.055) Total Protein 8.2 g/dL (6.4-8.2) 6.2 g/dL (6.4-8.2) Albumin 4.3 g/dL (3.4-5.0) 3.0 g/dL (3.4-5.0) Albumin/Globulin Ratio 1.1 (1.0-1.7) 0.9 (1.0-1.7) Ethyl Alcohol Level < 10 mg/dL (0-10) Urine Collection Type U cath Urine Color Yellow Urine Clarity Clear Urine pH 5.5 (<5.0-8.0) Urine Specific [place] 1.015 (1.000-1.030) Urine Protein 100 mg/dL (NEG-TRACE) Urine Glucose (UA) Negative mg/dL (NEG) Urine Ketones (Stick) Negative mg/dL (NEG) Urine Blood Large (NEG) Urine Nitrite Negative (NEG) Urine Bilirubin Negative (NEG) Urine Urobilinogen Dipstick 0.2 mg/dL (0.2 mg/dL) Urine Leukocyte Esterase Negative (NEG) Urine RBC 3-5 /HPF (0-2) Urine WBC 0 /HPF (0-4) Urine Amorphous Sediment Present /HPF Urine Bacteria 0 /HPF (0-FEW) Urine Opiates Screen Neg (NEG) Urine Methadone Screen Neg (NEG) Urine Barbiturates Neg (NEG) Urine Phencyclidine Screen Neg (NEG) Urine Amphetamine/Methamphetamine Neg (NEG) Urine Benzodiazepines Screen Pos (NEG) Urine Cocaine Screen Neg (NEG) Urine Cannabinoids Screen Neg (NEG) Urine Ethyl Alcohol Neg (NEG) Creatine Kinase 2836 U/L (39-308) Laboratory Tests Test 05/26/20 08:25 White Blood Count 15.8 x10^3/uL (4.0-11.0) Red Blood Count 4.56 x10^6/uL (4.30-5.70) Hemoglobin 13.3 g/dL (13.0-17.5) Hematocrit 39.3 % (39.0-53.0) Mean Corpuscular Volume 86 fL (79-100) Mean Corpuscular Hemoglobin 29 pg (25-35) Mean Corpuscular Hemoglobin Concent 34 g/dL (31-37) Red Cell Distribution Width 13.4 % (11.5-14.5) Platelet Count 185 x10^3/uL (140-400) Neutrophils (%) (Auto) 86 % (31-73) Lymphocytes (%) (Auto) 7 % (24-48) Monocytes (%) (Auto) 7 % (0-9) Eosinophils (%) (Auto) 0 % (0-3) Basophils (%) (Auto) 0 % (0-3) Neutrophils # (Auto) 13.6 x10^3/uL (1.8-7.7) Lymphocytes # (Auto) 1.0 x10^3/uL (1.0-4.8) Monocytes # (Auto) 1.1 x10^3/uL (0.0-1.1) Eosinophils # (Auto) 0.0 x10^3/uL (0.0-0.7) Basophils # (Auto) 0.0 x10^3/uL (0.0-0.2) Sodium Level 138 mmol/L (136-145) Potassium Level 3.5 mmol/L (3.5-5.1) Chloride Level 107 mmol/L (98-107) Carbon Dioxide Level 22 mmol/L (21-32) Anion Gap 9 (6-14) Blood Urea Nitrogen 32 mg/dL (8-26) Creatinine 3.0 mg/dL (0.7-1.3) Estimated GFR (Cockcroft-Gault) 23.9 BUN/Creatinine Ratio 11 (6-20) Glucose Level 134 mg/dL (70-99) Calcium Level 7.7 mg/dL (8.5-10.1) Total Bilirubin 0.8 mg/dL (0.2-1.0) Aspartate Amino Transf (AST/SGOT) 50 U/L (15-37) Alanine Aminotransferase (ALT/SGPT) 31 U/L (16-63) Alkaline Phosphatase 65 U/L (46-116) Creatine Kinase 2836 U/L (39-308) Total Protein 6.2 g/dL (6.4-8.2) Albumin 3.0 g/dL (3.4-5.0) Albumin/Globulin Ratio 0.9 (1.0-1.7) Images Images CT HEAD WO CONTRAST History: Reason: status epilepticus / Spl. Instructions: / History: Comparison: August 19, 2019 Technique: Noncontrast CT imaging was performed of the head. Exposure: One or more of the following individualized dose reduction techniques were utilized for this examination: 1. Automated exposure control 2. Adjustment of the mA and/or kV according to patient size 3. Use of iterative reconstruction technique. Findings: No intracranial hemorrhage. No mass effect. No hydrocephalus. Unchanged left frontal calcification with adjacent encephalomalacia. Imaged orbits are unremarkable. Imaged paranasal sinuses and mastoid air cells are clear. No acute calvarial fracture. Impression: 1. No acute intracranial abnormality. Assessment/Plan Assessment/Plan Impression: Recurrent seizures, noncompliance, localization-onset epilepsy, symptomatic History of left frontal encephalomalacia, calcification, there is a cavernous hemangioma on the MRI from last year. Recommendations: Resumed levetiracetam Okay for discharge Seizure precautions: no heavy machinery, working at heights, or driving until 6 months without a seizure Follow-up with me in [address] Driscoll Thank you for letting me help with the patient's care. JOSE LOCK MD May 26, 2020 12:37
[2020-05-26 15:00] VITALS: BP 121/76
[2020-05-26] MEDS: FAMOTIDINE 20 MG TABLET. PO SCH (15:23)
--- NOTE | 2020-05-26 15:32 | NUR ---
Patient discharge teaching completed using public works manager phone. Medications given using public works manager phone. Pt states he understands his discharge teaching and home medications. IV site discontinued without difficulty. Note to pt's employer for work restrictions and no driving for [address] spann given to pt. Pt is still c/o DORANTES but states it is much better than yesterday. He was discharged to home with family; escorted out by staff via w/c. Pt has Rx for Keppra. I did call [facility] on [address] to let them know pt was coming with Rx, but would not understand their teaching, but that we had done teaching here with public works manager phone.
== END 2020-05-26 15:38 | disposition home or self-care (01) ==
LOC: ER 06:52 → ED HOLD 12:54 → 4 NORTH 13:56
PROVIDERS: ADMIT Internal Medicine; ATTEND Internal Medicine
DX: G40.901 Epilepsy, unspecified, not intractable, with status epilepticus (principal); R00.0 Tachycardia, unspecified; Z79.899 Other long term (current) drug therapy; Z91.19 Patient's noncompliance with other medical treatment and regimen
CPT/HCPCS: 36415; 70450; 71045; 80053; 80307; 81001; 82550; 83615; 84484; 85007; 85025; 93005; 96361; 96365; 96372; 96375; 99291; G0378; G0480; J1650; J1885; J1953; J7030; J7060; J7120; G0379

== ENCOUNTER 2020-05-27 17:15 | Inpatient (IN) | payer BC ==
[~2020-05-27] VITALS: Ht 162.6 cm; Wt 71.2 kg
[~2020-05-27 17:15] MED LIST changes: +LEVE750T41 PO
[2020-05-27] MEDS ORDERED: IV NORMAL SALINE 1000ML BAG 1,000 ML IV ONE ×2 (17:45→18:30)
[2020-05-27 17:46] LABS: BASO % 0 % (0-3); EOS # 0.1 x10^3/uL (0.0-0.7); EOS % 1 % (0-3); HEMATOCRIT 40.6 % (39.0-53.0); LYMPH # 1.5 x10^3/uL (1.0-4.8); LYMPH % 13 % (24-48); MEAN CORPUSCULAR HEMOGLOBIN 30 pg (25-35); MEAN CORPUSCULAR HGB CONC 35 g/dL (31-37); MEAN CORPUSCULAR VOLUME 85 fL (79-100); MONO # 1.1 x10^3/uL (0.0-1.1); MONO % 10 % (0-9); NEUT # 8.8 x10^3/uL (1.8-7.7); NEUT % 76 % (31-73); PLATELET COUNT 219 x10^3/uL (140-400); RED BLOOD COUNT 4.75 x10^6/uL (4.30-5.70); RED CELL DISTRIBUTION WIDTH 13.2 % (11.5-14.5); WHITE BLOOD COUNT 11.5 x10^3/uL (4.0-11.0)
--- NOTE | 2020-05-27 17:54 | PHYS DOC ---
Past Medical History Past Medical History: Seizure, Other Additional Past Medical Histor: BRAIN BLEED 04/29 (NIKI JAMES DO) Past Surgical History: No Surgical History (NIKI JAMES DO) Smoking Status: Never Smoker Alcohol Use: None Drug Use: None (NIKI JAMES DO) General Adult EDM: Chief Complaint: SEIZURE HPI: HPI: Patient is a 35-year-old male with a history of seizure disorder on Keppra. He was just hospitalized 2 days ago and released yesterday secondary to seizure. He is felt like he was going to have a seizure throughout the day today. He has had no witnessed seizure. He speaks Maldivian only and the antitank assault gunner which is a friend states that he did not feel like he should have left the hospital he just did not feel right. He denies any lateralizing neurologic weakness. He denies any fever or neck pain. He does not believe he is taken his Keppra as prescribed. [] (NIKI JAMES DO) Review of Systems: Review of Systems: Constitutional: Denies fever or chills. [] Eyes: Denies change in visual acuity. [] HENT: Denies nasal congestion or sore throat. [] Respiratory: Denies cough or shortness of breath. [] Cardiovascular: Denies chest pain or edema. [] GI: Denies abdominal pain, nausea, vomiting, bloody stools or diarrhea. [] : Denies dysuria. [] Musculoskeletal: Denies back pain or joint pain. [] Integument: Denies rash. [] Neurologic: Per HPI. [] Endocrine: Denies polyuria or polydipsia. [] Lymphatic: Denies swollen glands. [] Psychiatric: Denies depression or anxiety. [] (NIKI JAMES DO) Heart Score: Risk Factors: Risk Factors: DM, Current or recent (<one month) smoker, HTN, HLP, family history of CAD, obesity. Risk Scores: Score 0 - 3: 2.5% MACE over next 6 weeks - Discharge Home Score 4 - 6: 20.3% MACE over next 6 weeks - Admit for Clinical Observation Score 7 - 10: 72.7% MACE over next 6 weeks - Early Invasive Strategies (NIKI JAMES DO) Current Medications: Current Medications Medications (Trade) Dose Ordered Sig/Cyndi Start Time Stop Time Status Last Admin Dose Admin Sodium Chloride 1,000 ml @ 1,000 mls/hr 1X ONCE 05/27/20 17:45 05/27/20 18:44 (NIKI JAMES DO) Allergies: Allergies: Allergies Coded Allergies Type Severity Reaction Last Updated Verified No Known Drug Allergies 08/11/16 No (NIKI JAMES DO) Physical Exam: PE: Constitutional: Well developed, well nourished, no acute distress, non-toxic appearance. [] HENT: Normocephalic, atraumatic, bilateral external ears normal, oropharynx maximil[address], no oral exudates, nose normal. [] Eyes: PERRLA, EOMI, conjunctiva normal, no discharge. [] Neck: Normal range of motion, no tenderness, supple, no stridor. [] Cardiovascular:Heart rate regular rhythm, no murmur [] Lungs & Thorax: Bilateral breath sounds clear to auscultation [] Abdomen: Bowel sounds normal, soft, no tenderness, no masses, no pulsatile masses. [] Skin: Warm, dry, no erythema, no rash. [] Back: No tenderness, no CVA tenderness. [] Extremities: No tenderness, no cyanosis, no clubbing, ROM intact, no edema. [] Neurologic: Alert and oriented X 3, normal motor function, normal sensory function, no focal deficits noted. [] Psychologic: Depressed affect. [] (NIKI JAMES DO) Current Patient Data: Labs: Laboratory Tests Test 05/27/20 17:30 White Blood Count 11.5 x10^3/uL (4.0-11.0) H Red Blood Count 4.75 x10^6/uL (4.30-5.70) Hemoglobin 14.0 g/dL (13.0-17.5) Hematocrit 40.6 % (39.0-53.0) Mean Corpuscular Volume 85 fL (79-100) Mean Corpuscular Hemoglobin 30 pg (25-35) Mean Corpuscular Hemoglobin Concent 35 g/dL (31-37) Red Cell Distribution Width 13.2 % (11.5-14.5) Platelet Count 219 x10^3/uL (140-400) Neutrophils (%) (Auto) 76 % (31-73) H Lymphocytes (%) (Auto) 13 % (24-48) L Monocytes (%) (Auto) 10 % (0-9) H Eosinophils (%) (Auto) 1 % (0-3) Basophils (%) (Auto) 0 % (0-3) Neutrophils # (Auto) 8.8 x10^3/uL (1.8-7.7) H Lymphocytes # (Auto) 1.5 x10^3/uL (1.0-4.8) Monocytes # (Auto) 1.1 x10^3/uL (0.0-1.1) Eosinophils # (Auto) 0.1 x10^3/uL (0.0-0.7) Basophils # (Auto) 0.0 x10^3/uL (0.0-0.2) Laboratory Tests 05/27/20 17:30 (NIKI JAMES DO) EKG: EKG: [] (NIKI JAMES DO) Radiology/Procedures: Radiology/Procedures: [] (NIKI JAMES DO) Course & Med Decision Making: Course & Med Decision Making Pertinent Labs and Imaging studies reviewed. (See chart for details) [] (NIKI JAMES DO) Course & Med Decision Making 1838-patient was seen and examined. During my interview the patient began to have a seizure. This was noted as right eye deviation with flickering and unresponsiveness. This lasted about a minute and a half and then the patient came back to alert status. However he continues to complain of some not feeling well. I suspect that he is not recovering during the interictal period. Because of my concern for status epilepticus we will start Ativan, redosed with Kevijira. I discussed the case with Dr. Omer the neurologist involved and admitted the patient to the hospitalist. Will contact nephrology concerning his acute renal failure (MARI ADAME MD) Dragon Disclaimer: Dragon Disclaimer: This electronic medical record was generated, in whole or in part, using a voice recognition dictation system. (NIKI JAMES DO) Critical Care Note Total Time (mins): 35 Comments 35 critical care was billed secondary to given imminent collapse of the central nervous system, this is billed outside of any procedure or teaching time. 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
[2020-05-27 18:02] LABS: CALCIUM 8.8 mg/dL (8.5-10.1); CREATININE 2.4 mg/dL (0.7-1.3); POTASSIUM 3.5 mmol/L (3.5-5.1)
[2020-05-27 18:17] LABS: ALBUMIN 3.4 g/dL (3.4-5.0); ALBUMIN/GLOBULIN RATIO 0.9 (1.0-1.7); MAGNESIUM 2.1 mg/dL (1.8-2.4); TOTAL BILIRUBIN 0.3 mg/dL (0.2-1.0); TOTAL PROTEIN 7.2 g/dL (6.4-8.2)
--- NOTE | 2020-05-27 18:25 | EKG ---
[facility] [address] [place] [id number] Test Date: 2020-05-27 Test Time: 17:31:40 Pat Name: CONCHIS WANG Department: Room: Gender: M Mosaic Floor Layer: : 1985 Requested By: NIKI JAMES Order Number: [id number] Reading MD: Measurements Intervals [place] Rate: 70 P: 30 [place]: 152 QRS: -11 QRSD: 92 T: 0 QT: 344 QTc: 374 Interpretive Statements SINUS RHYTHM LEFTWARD AXIS INCOMPLETE RIGHT BUNDLE BRANCH BLOCK OTHERWISE NORMAL ECG RI6.01 No previous ECG available for comparison
[2020-05-27] MEDS ORDERED: levETIRAcetam 1,000 MG in IV DEXTROSE 5% 100ML 100 ML IV ONE (18:30)
--- NOTE | 2020-05-27 19:15 | PDOC1 ---
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 (7) Acute renal failure Chief Complain: Possible seizures History of Present Illness: HPI: This is a middle-aged [place] gentleman who has known seizures We just discharged him recently after being treated for seizure Once again he feels like he is having seizures The ER doctor witnessed seizures while he was examined the patient I discussed the case with ER physician regard to meet the patient and consult neurology and adjust his Keppra Past Medical/Surgical History: PMH/PSH: Seizures Allergies: Allergies: Coded Allergies: No Known Drug Allergies (Unverified , 08/11/16) Family History: Family History: Seizures Social History: Social History: He does not drink smoke or take drugs Current Medications: Current Medications Current Medications Sodium Chloride 1,000 ml @ 1,000 mls/hr 1X ONCE IV Last administered on 05/27/20at 18:01; Start 05/27/20 at 17:45; Stop 05/27/20 at 18:44; Status DC Lorazepam (Ativan Inj) 2 mg STK-MED ONCE .ROUTE ; Start 05/27/20 at 18:25; Stop 05/27/20 at 18:25; Status DC Lorazepam (Ativan Inj) 2 mg 1X ONCE IVP Last administered on 05/27/20at 18:31; Start 05/27/20 at 18:30; Stop 05/27/20 at 18:31; Status DC Levetiracetam 1000 mg/Dextrose 110 ml @ 440 mls/hr 1X ONCE IV Last administered on 05/27/20at 18:46; Start 05/27/20 at 18:30; Stop 05/27/20 at 18:44; Status DC Sodium Chloride 1,000 ml @ 1,000 mls/hr 1X ONCE IV Last administered on 05/27/20at 18:47; Start 05/27/20 at 18:30; Stop 05/27/20 at 19:29 Sodium Chloride 1,000 ml @ 100 mls/hr Q10H IV ; Start 05/27/20 at 18:46; Stop 8/17/20 at 18:45 Lorazepam (Ativan Inj) 2 mg PRN Q10MIN PRN IVP ANXIETY / AGITATION; Start 05/27/20 at 19:00 Active Scripts Active Keppra (Levetiracetam) 750 Mg Tablet 750 Mg PO BID 30 Days Pepcid (Famotidine) 20 Mg Tablet 20 Mg PO BID Acetaminophen 500 Mg Tablet 500 Mg PO PRN Q6HRS PRN 14 Days Levsin-Sl (Hyoscyamine Sulfate) 0.125 Mg Tab.subl 1 Tab SL PRN Q4HRS PRN Ondansetron Odt (Ondansetron) 4 Mg Tab.rapdis 1 Tab PO PRN Q6-8HRS PRN Loperamide (Loperamide Hcl) 2 Mg Capsule 2 Mg PO UD PRN Take one capsule after each unformed stool. Do not take more than 8 capsules in one day. Pepcid (Famotidine) 20 Mg Tablet 20 Mg PO BID ROS: Review of Systems Review of System REVIEW OF SYSTEMS: GENERAL: Denies weakness SKIN: No bruising, hair changes or rashes. EYES: No blurred, double or loss of vision. NOSE AND THROAT: No history of nosebleeds, hoarseness or sore throat. HEART: No history of palpitations, chest pain or shortness of breath on exertion. LUNGS: Denies cough, hemoptysis, wheezing or shortness of breath. GASTROINTESTINAL: Denies changes in appetite, nausea, vomiting, diarrhea or constipation. GENITOURINARY: No history of frequency, urgency, hesitancy or nocturia. NEUROLOGIC: Complains of intermittent seizures PSYCHIATRIC: No history of panic, anxiety or depression. ENDOCRINE: No history of heat or cold intolerance, polyuria or polydipsia. EXTREMITIES: Denies joint pain, pain on walking or stiffness. Physical Exam: Vital Signs: Vital Signs Date Time Temp Pulse Resp B/P (MAP) Pulse Ox O2 Delivery O2 Flow Rate FiO2 05/27/20 18:50 59 18 173/97 (122) 99 Room Air 05/27/20 17:22 99.2 99.2 Physcial Exam: GEN: No apparent distress. Alert and oriented HEENT: Normal cephalic, atraumatic, external auditory canals are patent EYES: Extraocular muscles are intact, pupil are equally round and reactive to light and accommodation MUSCULOSKELETAL: Well developed , well nourished, good range of motion ENDOCRINE: No thyromegaly was palpated LYMPHATICS: No cervical chain or axillary nodes were noted HEMATOPOIETIC: No bruising NECK: Supple, no JVD, no thyromegaly was noted LUNGS: Clear to auscultation in all lung goodman without rhonchi or wheezing HEART: RRR, S!, S2 present. Peripheral pulses intact, no obvious murmurs noted ABDOMEN: Soft, nontender. Positive bowel sounds, no organomegaly, normal bowel sounds EXTREMITIES: Without clubbing, cyanosis, or edema. Pedal pulses intact. Negative Homans sign NEUROLOGIC: Normal speech and tone. A&O x 3, moves all extremities, no obvious focal deficits PSYCHIATRIC: Normal affect, normal mood. Stable SKIN: No ulcerations or rashes, good skin turgor, no jaundice VASCULAR: Good capillary refill, neurovascular bundle appears to be intact Labs: Labs: Laboratory Tests Test 05/27/20 17:30 White Blood Count 11.5 x10^3/uL (4.0-11.0) Red Blood Count 4.75 x10^6/uL (4.30-5.70) Hemoglobin 14.0 g/dL (13.0-17.5) Hematocrit 40.6 % (39.0-53.0) Mean Corpuscular Volume 85 fL (79-100) Mean Corpuscular Hemoglobin 30 pg (25-35) Mean Corpuscular Hemoglobin Concent 35 g/dL (31-37) Red Cell Distribution Width 13.2 % (11.5-14.5) Platelet Count 219 x10^3/uL (140-400) Neutrophils (%) (Auto) 76 % (31-73) Lymphocytes (%) (Auto) 13 % (24-48) Monocytes (%) (Auto) 10 % (0-9) Eosinophils (%) (Auto) 1 % (0-3) Basophils (%) (Auto) 0 % (0-3) Neutrophils # (Auto) 8.8 x10^3/uL (1.8-7.7) Lymphocytes # (Auto) 1.5 x10^3/uL (1.0-4.8) Monocytes # (Auto) 1.1 x10^3/uL (0.0-1.1) Eosinophils # (Auto) 0.1 x10^3/uL (0.0-0.7) Basophils # (Auto) 0.0 x10^3/uL (0.0-0.2) Sodium Level 144 mmol/L (136-145) Potassium Level 3.5 mmol/L (3.5-5.1) Chloride Level 111 mmol/L (98-107) Carbon Dioxide Level 23 mmol/L (21-32) Anion Gap 10 (6-14) Blood Urea Nitrogen 25 mg/dL (8-26) Creatinine 2.4 mg/dL (0.7-1.3) Estimated GFR (Cockcroft-Gault) 31.0 BUN/Creatinine Ratio 10 (6-20) Glucose Level 107 mg/dL (70-99) Calcium Level 8.8 mg/dL (8.5-10.1) Ethyl Alcohol Level < 10 mg/dL (0-10) Laboratory Tests Test 05/27/20 17:30 White Blood Count 11.5 x10^3/uL (4.0-11.0) Red Blood Count 4.75 x10^6/uL (4.30-5.70) Hemoglobin 14.0 g/dL (13.0-17.5) Hematocrit 40.6 % (39.0-53.0) Mean Corpuscular Volume 85 fL (79-100) Mean Corpuscular Hemoglobin 30 pg (25-35) Mean Corpuscular Hemoglobin Concent 35 g/dL (31-37) Red Cell Distribution Width 13.2 % (11.5-14.5) Platelet Count 219 x10^3/uL (140-400) Neutrophils (%) (Auto) 76 % (31-73) Lymphocytes (%) (Auto) 13 % (24-48) Monocytes (%) (Auto) 10 % (0-9) Eosinophils (%) (Auto) 1 % (0-3) Basophils (%) (Auto) 0 % (0-3) Neutrophils # (Auto) 8.8 x10^3/uL (1.8-7.7) Lymphocytes # (Auto) 1.5 x10^3/uL (1.0-4.8) Monocytes # (Auto) 1.1 x10^3/uL (0.0-1.1) Eosinophils # (Auto) 0.1 x10^3/uL (0.0-0.7) Basophils # (Auto) 0.0 x10^3/uL (0.0-0.2) Sodium Level 144 mmol/L (136-145) Potassium Level 3.5 mmol/L (3.5-5.1) Chloride Level 111 mmol/L (98-107) Carbon Dioxide Level 23 mmol/L (21-32) Anion Gap 10 (6-14) Blood Urea Nitrogen 25 mg/dL (8-26) Creatinine 2.4 mg/dL (0.7-1.3) Estimated GFR (Cockcroft-Gault) 31.0 BUN/Creatinine Ratio 10 (6-20) Glucose Level 107 mg/dL (70-99) Calcium Level 8.8 mg/dL (8.5-10.1) Ethyl Alcohol Level < 10 mg/dL (0-10) Assessment/Plan Assessment/Plan Recurrent seizures Acute on chronic renal failure Plan Admit Consult nephrology IV fluid Consult neurology Adjust his Keppra Seizure precautions DVT prophylaxis Trend labs Full code Justicifation of Admission Dx: Justifications for Admission: Justification of Admission Dx: N/A JB GUZMÁN III DO May 27, 2020 19:15
[2020-05-27] MEDS: IV NORMAL SALINE 1000ML BAG 1,000 ML IV SCH (19:30)
[2020-05-27 22:57] VITALS: BP 140/90
[2020-05-28 03:13] VITALS: BP 160/98
[2020-05-28 07:00] VITALS: BP 154/88
[2020-05-28] MEDS: levETIRAcetam 500 MG TABLET PO SCH ×2 (09:05→20:34)
[2020-05-28] MEDS: IV NORMAL SALINE 1000ML BAG 1,000 ML IV SCH ×3 (09:07→19:45)
--- NOTE | 2020-05-28 09:43 | PDOC2 ---
CONSULT Date of Consult Date of Consult DATE: 05/28/20 TIME: 09:43 Reason for Consult Reason for Consult: FAVIAN Identification/Chief Complaint Chief Complaint admitted with c/o seizures Source Source: Chart review History of Present Illness Reason for Visit: Hx Mostly from chart review - Language barrier- speaks Jamaican Patient is a 35-year-old male , Jamaican speaking with a history of seizure disorder on Keppra. He was just hospitalized 2 -3 days ago secondary to seizure. He felt like he was going to have a seizure throughout the day . He has had no witnessed seizure. He denies any lateralizing neurologic weakness. He denies any fever or neck pain. He does not believe he is taken his Keppra as prescribed. He denies any N/V/D. No abdominal pain. No urinary complaints, Good UOP Past Medical History Cardiovascular: No pertinent hx Pulmonary: No pertinent hx CENTRAL NERVOUS SYSTEM: Seizure, Other GI: No pertinent hx Heme/Onc: No pertinent hx Hepatobiliary: No pertinent hx Psych: No pertinent hx Rheumatologic: No pertinent hx Infectious disease: No pertinent hx Renal/: No pertinent hx Endocrine: No pertinent hx Past Surgical History Past Surgical History: No pertinent history Family History Family History: No Significant Social History ALCOHOL: none Drugs: None Current Problem List Problem List Problems Medical Problems: (1) Acute renal failure Status: Acute (2) Seizure Status: Acute (3) 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 Status: Acute Current Medications Current Medications Current Medications Sodium Chloride 1,000 ml @ 1,000 mls/hr 1X ONCE IV Last administered on 05/27/20at 18:01; Start 05/27/20 at 17:45; Stop 05/27/20 at 18:44; Status DC Lorazepam (Ativan Inj) 2 mg STK-MED ONCE .ROUTE ; Start 05/27/20 at 18:25; Stop 05/27/20 at 18:25; Status DC Lorazepam (Ativan Inj) 2 mg 1X ONCE IVP Last administered on 05/27/20at 18:31; Start 05/27/20 at 18:30; Stop 05/27/20 at 18:31; Status DC Levetiracetam 1000 mg/Dextrose 110 ml @ 440 mls/hr 1X ONCE IV Last administered on 05/27/20at 18:46; Start 8/16/20 at 18:30; Stop 05/27/20 at 18:44; Status DC Sodium Chloride 1,000 ml @ 1,000 mls/hr 1X ONCE IV Last administered on 05/27/20at 18:47; Start 05/27/20 at 18:30; Stop 05/27/20 at 19:29; Status DC Sodium Chloride 1,000 ml @ 100 mls/hr Q10H IV Last administered on 05/28/20at 09:07; Start 05/27/20 at 18:46; Stop 05/28/20 at 18:45 Lorazepam (Ativan Inj) 2 mg PRN Q10MIN PRN IVP ANXIETY / AGITATION; Start 05/27/20 at 19:00 Levetiracetam (Keppra) 500 mg BID PO Last administered on 05/28/20at 09:05; Start 05/28/20 at 09:00 Active Scripts Active Keppra (Levetiracetam) 750 Mg Tablet 750 Mg PO BID 30 Days Acetaminophen 500 Mg Tablet 500 Mg PO PRN Q6HRS PRN 14 Days Pepcid (Famotidine) 20 Mg Tablet 20 Mg PO BID Allergies Allergies: Coded Allergies: No Known Drug Allergies (Unverified , 08/11/16) ROS Review of System Per HPI , rest ROS is negative Physical Exam Physical Exam GEN: NAD HEEN: om moist , On RA NECK: supple CVS: S1S2, RRR RESP: CTA, No Acc. Muscle Use GI: BS + ve, NO Bruit, Non Tender, Non Distended : No CVA tenderness, No Suprapubic Tenderness, No kendrick Neuro- Per Neurologist exam DERM No Rah EXT No edema Vital Signs Vital Signs Date Time Temp Pulse Resp B/P (MAP) Pulse Ox O2 Delivery O2 Flow Rate FiO2 05/28/20 07:00 98.3 60 18 154/88 (110) 95 Room Air 98.3 Assessment & Plan FAVIAN - suspect 2/2 Rhabdomyolyis Elevated Cr present on 05/25- his earlier Hospitalization -->peaked at 3.0, Improving 2.4 Continue IV Hydration, Good UOP , CT in 2019 Normal kidneys E-Lytes stable, Avoid Nephrotoxins, Strict I/O, Daily Labs If persistent will check Renal US and UA Rhabdomyolysis- presumably sec to Seizures Continue IVF and Trend CK Recurrent seizures, localization-onset epilepsy, symptomatic. Today's EEG shows left temporal epileptic activity and an electrographic seizure Neurology following - On evetiracetam at a lower dose History of left frontal cavernous hemangioma Left frontal chronic small vessel disease versus chronic demyelination. Labs Labs Laboratory Tests Test 05/27/20 17:30 White Blood Count 11.5 x10^3/uL (4.0-11.0) Red Blood Count 4.75 x10^6/uL (4.30-5.70) Hemoglobin 14.0 g/dL (13.0-17.5) Hematocrit 40.6 % (39.0-53.0) Mean Corpuscular Volume 85 fL (79-100) Mean Corpuscular Hemoglobin 30 pg (25-35) Mean Corpuscular Hemoglobin Concent 35 g/dL (31-37) Red Cell Distribution Width 13.2 % (11.5-14.5) Platelet Count 219 x10^3/uL (140-400) Neutrophils (%) (Auto) 76 % (31-73) Lymphocytes (%) (Auto) 13 % (24-48) Monocytes (%) (Auto) 10 % (0-9) Eosinophils (%) (Auto) 1 % (0-3) Basophils (%) (Auto) 0 % (0-3) Neutrophils # (Auto) 8.8 x10^3/uL (1.8-7.7) Lymphocytes # (Auto) 1.5 x10^3/uL (1.0-4.8) Monocytes # (Auto) 1.1 x10^3/uL (0.0-1.1) Eosinophils # (Auto) 0.1 x10^3/uL (0.0-0.7) Basophils # (Auto) 0.0 x10^3/uL (0.0-0.2) Sodium Level 144 mmol/L (136-145) Potassium Level 3.5 mmol/L (3.5-5.1) Chloride Level 111 mmol/L (98-107) Carbon Dioxide Level 23 mmol/L (21-32) Anion Gap 10 (6-14) Blood Urea Nitrogen 25 mg/dL (8-26) Creatinine 2.4 mg/dL (0.7-1.3) Estimated GFR (Cockcroft-Gault) 31.0 BUN/Creatinine Ratio 10 (6-20) Glucose Level 107 mg/dL (70-99) Calcium Level 8.8 mg/dL (8.5-10.1) Magnesium Level 2.1 mg/dL (1.8-2.4) Total Bilirubin 0.3 mg/dL (0.2-1.0) Aspartate Amino Transf (AST/SGOT) 82 U/L (15-37) Alanine Aminotransferase (ALT/SGPT) 53 U/L (16-63) Alkaline Phosphatase 71 U/L (46-116) Creatine Kinase 54799 U/L (39-308) Total Protein 7.2 g/dL (6.4-8.2) Albumin 3.4 g/dL (3.4-5.0) Albumin/Globulin Ratio 0.9 (1.0-1.7) Ethyl Alcohol Level < 10 mg/dL (0-10) Laboratory Tests Test 05/27/20 17:30 White Blood Count 11.5 x10^3/uL (4.0-11.0) Red Blood Count 4.75 x10^6/uL (4.30-5.70) Hemoglobin 14.0 g/dL (13.0-17.5) Hematocrit 40.6 % (39.0-53.0) Mean Corpuscular Volume 85 fL (79-100) Mean Corpuscular Hemoglobin 30 pg (25-35) Mean Corpuscular Hemoglobin Concent 35 g/dL (31-37) Red Cell Distribution Width 13.2 % (11.5-14.5) Platelet Count 219 x10^3/uL (140-400) Neutrophils (%) (Auto) 76 % (31-73) Lymphocytes (%) (Auto) 13 % (24-48) Monocytes (%) (Auto) 10 % (0-9) Eosinophils (%) (Auto) 1 % (0-3) Basophils (%) (Auto) 0 % (0-3) Neutrophils # (Auto) 8.8 x10^3/uL (1.8-7.7) Lymphocytes # (Auto) 1.5 x10^3/uL (1.0-4.8) Monocytes # (Auto) 1.1 x10^3/uL (0.0-1.1) Eosinophils # (Auto) 0.1 x10^3/uL (0.0-0.7) Basophils # (Auto) 0.0 x10^3/uL (0.0-0.2) Sodium Level 144 mmol/L (136-145) Potassium Level 3.5 mmol/L (3.5-5.1) Chloride Level 111 mmol/L (98-107) Carbon Dioxide Level 23 mmol/L (21-32) Anion Gap 10 (6-14) Blood Urea Nitrogen 25 mg/dL (8-26) Creatinine 2.4 mg/dL (0.7-1.3) Estimated GFR (Cockcroft-Gault) 31.0 BUN/Creatinine Ratio 10 (6-20) Glucose Level 107 mg/dL (70-99) Calcium Level 8.8 mg/dL (8.5-10.1) Magnesium Level 2.1 mg/dL (1.8-2.4) Total Bilirubin 0.3 mg/dL (0.2-1.0) Aspartate Amino Transf (AST/SGOT) 82 U/L (15-37) Alanine Aminotransferase (ALT/SGPT) 53 U/L (16-63) Alkaline Phosphatase 71 U/L (46-116) Creatine Kinase 21230 U/L (39-308) Total Protein 7.2 g/dL (6.4-8.2) Albumin 3.4 g/dL (3.4-5.0) Albumin/Globulin Ratio 0.9 (1.0-1.7) Ethyl Alcohol Level < 10 mg/dL (0-10) Review All relevant outside records, renal labs, imaging studies, telemetry/EKG's were reviewed. ASAEL MARIE MD May 28, 2020 09:43
--- NOTE | 2020-05-28 10:28 | RAD ---
EXAM: Brain MRI without contrast. HISTORY: Seizures. Cavernous hemangioma. TECHNIQUE: Multiplanar, multisequence magnetic resonance imaging of the brain was performed without contrast. COMPARISON: Head CT dated 05/25/2020 and brain MRI dated 05/02/2019. FINDINGS: There is no restricted diffusion to suggest acute or subacute infarction. There is slight increased signal within the left frontal lobe near the vertex on diffusion-weighted images due to T2 shine through artifact. There is associated stable T2/FLAIR hyperintensity in this location which surrounds an 8 mm oval T2 hypointense lesion with susceptibility effect, the appearance of which favors a cavernoma. The gyri in this location are decreased in size due to volume loss. There is a stable tiny focus of T2/FLAIR hyperintensity within the posterior left frontal lobe cortex and subcortical white matter. There is suggestion of slight relative decreased size of the left hippocampus. There is no mass effect or midline shift. There is no hydrocephalus. The orbits are unremarkable. There is mild paranasal sinus mucosal thickening. The mastoid air cells are clear. There are normal flow voids within the cerebral vessels. IMPRESSION: 1. Stable 8 mm oval T2 hypointense lesion with susceptibility effect likely due to hemosiderin deposition within the left frontal lobe near the vertex, the appearance of which favors a cavernoma. There is stable surrounding signal abnormality and decreased size of the surrounding gyri likely due to encephalomalacia from prior hemorrhage. There is no evidence of acute hemorrhage. 2. Stable tiny focus of signal change within the posterior left frontal lobe near the vertex. Given the age of the patient, the differential includes a focus of signal change due to chronic small vessel disease as well as a small chronic infarct or chronic demyelination. 3. Suggestion of slight relative decreased left hippocampal size. This is not clearly within limits to suggest mesial temporal sclerosis. Correlate with EEG localization findings in this patient with a history of seizures. Electronically signed by: Tammy Ibanez MD (05/28/2020 10:25 AM) [id number]
--- NOTE | 2020-05-28 11:36 | PDOC2 ---
NEUROLOGY CONSULT Date of Service DOS: DATE: 05/28/20 TIME: 11:25 Referring Physician Referring Physician: Dr. Avery Source Source: Chart review, Patient History of Present Illness History of Present Illness The patient is a 35-year-old right-handed male who I just saw 2 days ago when he was admitted for increased seizures. He had been off his levetiracetam and we simply renewed it. He returns last night with 3 seizures. His creatinine was 1.6 on 05/26 and was up to 3.0 on 05/27. He has been given additional levetiracetam. He has had no further seizures since admission. 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 EEG showed a left central focus. He was been on levetiracetam 750 mg BID, but he ran out in October. There is no history of stroke or head injury. 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 Current Medications Current Medications Current Medications Sodium Chloride 1,000 ml @ 1,000 mls/hr 1X ONCE IV Last administered on 05/27/20at 18:01; Start 05/27/20 at 17:45; Stop 05/27/20 at 18:44; Status DC Lorazepam (Ativan Inj) 2 mg STK-MED ONCE .ROUTE ; Start 05/27/20 at 18:25; Stop 05/27/20 at 18:25; Status DC Lorazepam (Ativan Inj) 2 mg 1X ONCE IVP Last administered on 05/27/20at 18:31; Start 05/27/20 at 18:30; Stop 05/27/20 at 18:31; Status DC Levetiracetam 1000 mg/Dextrose 110 ml @ 440 mls/hr 1X ONCE IV Last administered on 05/27/20at 18:46; Start 05/27/20 at 18:30; Stop 05/27/20 at 18:44; Status DC Sodium Chloride 1,000 ml @ 1,000 mls/hr 1X ONCE IV Last administered on 05/27/20at 18:47; Start 05/27/20 at 18:30; Stop 05/27/20 at 19:29; Status DC Sodium Chloride 1,000 ml @ 100 mls/hr Q10H IV Last administered on 05/28/20at 09:07; Start 05/27/20 at 18:46; Stop 05/28/20 at 18:45 Lorazepam (Ativan Inj) 2 mg PRN Q10MIN PRN IVP ANXIETY / AGITATION; Start 05/27/20 at 19:00 Levetiracetam (Keppra) 500 mg BID PO Last administered on 05/28/20at 09:05; Start 05/28/20 at 09:00 Active Scripts Active Keppra (Levetiracetam) 750 Mg Tablet 750 Mg PO BID 30 Days Acetaminophen 500 Mg Tablet 500 Mg PO PRN Q6HRS PRN 14 Days Pepcid (Famotidine) 20 Mg Tablet 20 Mg PO BID Allergies Allergies: Coded Allergies: No Known Drug Allergies (Unverified , 08/11/16) ROS Review of System Negative for fever, chills, weight loss, shortness of breath, chest pain, indigestion, hematochezia, melena, and dysuria. Full 14-point review of systems is negative. Physical Exam Physical Examination General: Well-developed, well-nourished male in no acute distress HEENT: Normocephalic andatraumatic. Temporal arteriespulsatile and nontender. Neck: Supple without bruit, no meningismus Musculoskeletal: Stability:see neurologic. Gait exam:see neurologic. Tone:see neurologic.Strength:see neurologic. Neurological: Mental Status:intact, orientation, memory, attention span/concentration, language, fund of knowledge normal. Cranial Nerves:Pupils equal and reactive to light, extraocular movements areintact, visual goodman are full to confrontation. Facial sensation is normal. There is no facial asymmetry. Vestibulo-ocular reflex is intact. Palate elevates and tongue protrudes in midline. All other cranial related problems are negative except as mentioned before.Reflexes:2+ and symmetric with flexor plantar responses. Motor:5/5 strength with normal tone and bulk. Coordination:Finger-nose finger and [id number] testing are normal. Rapid alternating movements and fine finger movements are intact. Gait:Normal, including tandem. Sensory:Normal pinprick, vibration, light touch, proprioception. Vitals VITALS Vital Signs Date Time Temp Pulse Resp B/P (MAP) Pulse Ox O2 Delivery O2 Flow Rate FiO2 05/28/20 08:00 Room Air 05/28/20 07:00 98.3 60 18 154/88 (110) 95 98.3 Labs Labs Laboratory Tests Test 05/27/20 17:30 White Blood Count 11.5 x10^3/uL (4.0-11.0) Red Blood Count 4.75 x10^6/uL (4.30-5.70) Hemoglobin 14.0 g/dL (13.0-17.5) Hematocrit 40.6 % (39.0-53.0) Mean Corpuscular Volume 85 fL (79-100) Mean Corpuscular Hemoglobin 30 pg (25-35) Mean Corpuscular Hemoglobin Concent 35 g/dL (31-37) Red Cell Distribution Width 13.2 % (11.5-14.5) Platelet Count 219 x10^3/uL (140-400) Neutrophils (%) (Auto) 76 % (31-73) Lymphocytes (%) (Auto) 13 % (24-48) Monocytes (%) (Auto) 10 % (0-9) Eosinophils (%) (Auto) 1 % (0-3) Basophils (%) (Auto) 0 % (0-3) Neutrophils # (Auto) 8.8 x10^3/uL (1.8-7.7) Lymphocytes # (Auto) 1.5 x10^3/uL (1.0-4.8) Monocytes # (Auto) 1.1 x10^3/uL (0.0-1.1) Eosinophils # (Auto) 0.1 x10^3/uL (0.0-0.7) Basophils # (Auto) 0.0 x10^3/uL (0.0-0.2) Sodium Level 144 mmol/L (136-145) Potassium Level 3.5 mmol/L (3.5-5.1) Chloride Level 111 mmol/L (98-107) Carbon Dioxide Level 23 mmol/L (21-32) Anion Gap 10 (6-14) Blood Urea Nitrogen 25 mg/dL (8-26) Creatinine 2.4 mg/dL (0.7-1.3) Estimated GFR (Cockcroft-Gault) 31.0 BUN/Creatinine Ratio 10 (6-20) Glucose Level 107 mg/dL (70-99) Calcium Level 8.8 mg/dL (8.5-10.1) Magnesium Level 2.1 mg/dL (1.8-2.4) Total Bilirubin 0.3 mg/dL (0.2-1.0) Aspartate Amino Transf (AST/SGOT) 82 U/L (15-37) Alanine Aminotransferase (ALT/SGPT) 53 U/L (16-63) Alkaline Phosphatase 71 U/L (46-116) Creatine Kinase 38130 U/L (39-308) Total Protein 7.2 g/dL (6.4-8.2) Albumin 3.4 g/dL (3.4-5.0) Albumin/Globulin Ratio 0.9 (1.0-1.7) Ethyl Alcohol Level < 10 mg/dL (0-10) Laboratory Tests Test 05/27/20 17:30 White Blood Count 11.5 x10^3/uL (4.0-11.0) Red Blood Count 4.75 x10^6/uL (4.30-5.70) Hemoglobin 14.0 g/dL (13.0-17.5) Hematocrit 40.6 % (39.0-53.0) Mean Corpuscular Volume 85 fL (79-100) Mean Corpuscular Hemoglobin 30 pg (25-35) Mean Corpuscular Hemoglobin Concent 35 g/dL (31-37) Red Cell Distribution Width 13.2 % (11.5-14.5) Platelet Count 219 x10^3/uL (140-400) Neutrophils (%) (Auto) 76 % (31-73) Lymphocytes (%) (Auto) 13 % (24-48) Monocytes (%) (Auto) 10 % (0-9) Eosinophils (%) (Auto) 1 % (0-3) Basophils (%) (Auto) 0 % (0-3) Neutrophils # (Auto) 8.8 x10^3/uL (1.8-7.7) Lymphocytes # (Auto) 1.5 x10^3/uL (1.0-4.8) Monocytes # (Auto) 1.1 x10^3/uL (0.0-1.1) Eosinophils # (Auto) 0.1 x10^3/uL (0.0-0.7) Basophils # (Auto) 0.0 x10^3/uL (0.0-0.2) Sodium Level 144 mmol/L (136-145) Potassium Level 3.5 mmol/L (3.5-5.1) Chloride Level 111 mmol/L (98-107) Carbon Dioxide Level 23 mmol/L (21-32) Anion Gap 10 (6-14) Blood Urea Nitrogen 25 mg/dL (8-26) Creatinine 2.4 mg/dL (0.7-1.3) Estimated GFR (Cockcroft-Gault) 31.0 BUN/Creatinine Ratio 10 (6-20) Glucose Level 107 mg/dL (70-99) Calcium Level 8.8 mg/dL (8.5-10.1) Magnesium Level 2.1 mg/dL (1.8-2.4) Total Bilirubin 0.3 mg/dL (0.2-1.0) Aspartate Amino Transf (AST/SGOT) 82 U/L (15-37) Alanine Aminotransferase (ALT/SGPT) 53 U/L (16-63) Alkaline Phosphatase 71 U/L (46-116) Creatine Kinase 76188 U/L (39-308) Total Protein 7.2 g/dL (6.4-8.2) Albumin 3.4 g/dL (3.4-5.0) Albumin/Globulin Ratio 0.9 (1.0-1.7) Ethyl Alcohol Level < 10 mg/dL (0-10) Images Images Brain MRI without contrast. HISTORY: Seizures. Cavernous hemangioma. TECHNIQUE: Multiplanar, multisequence magnetic resonance imaging of the brain was performed without contrast. COMPARISON: Head CT dated 05/25/2020 and brain MRI dated 05/02/2019. FINDINGS: There is no restricted diffusion to suggest acute or subacute infarction. There is slight increased signal within the left frontal lobe near the vertex on diffusion-weighted images due to T2 shine through artifact. There is associated stable T2/FLAIR hyperintensity in this location which surrounds an 8 mm oval T2 hypointense lesion with susceptibility effect, the appearance of which favors a cavernoma. The gyri in this location are decreased in size due to volume loss. There is a stable tiny focus of T2/FLAIR hyperintensity within the posterior left frontal lobe cortex and subcortical white matter. There is suggestion of slight relative decreased size of the left hippocampus. There is no mass effect or midline shift. There is no hydrocephalus. The orbits are unremarkable. There is mild paranasal sinus mucosal thickening. The mastoid air cells are clear. There are normal flow voids within the cerebral vessels. IMPRESSION: 1. Stable 8 mm oval T2 hypointense lesion with susceptibility effect likely due to hemosiderin deposition within the left frontal lobe near the vertex, the appearance of which favors a cavernoma. There is stable surrounding signal abnormality and decreased size of the surrounding gyri likely due to encephalomalacia from prior hemorrhage. There is no evidence of acute hemorrhage. 2. Stable tiny focus of signal change within the posterior left frontal lobe near the vertex. Given the age of the patient, the differential includes a focus of signal change due to chronic small vessel disease as well as a small chronic infarct or chronic demyelination. 3. Suggestion of slight relative decreased left hippocampal size. This is not clearly within limits to suggest mesial temporal sclerosis. Correlate with EEG localization findings in this patient with a history of seizures. Assessment/Plan Assessment/Plan Impression: Recurrent seizures, localization-onset epilepsy, symptomatic. Today's EEG shows left temporal epileptic activity and an electrographic seizure History of left frontal cavernous hemangioma Left frontal chronic small vessel disease versus chronic demyelination. Decreased left hippocampal size. Renal insufficiency, was already abnormal even before starting levetiracetam, I doubt that it is at fault. Recommendations: Resumed levetiracetam at a lower dose Will next add lamotrigine if needed MRI and EEG, already done Renal evaluation Seizure precautions: no heavy machinery, working at heights, or driving until 6 months without a seizure Observe at least one more night. Thank you for letting me help with the patient's care. JOSE LOCK MD May 28, 2020 11:36
--- NOTE | 2020-05-28 11:41 | EEG ---
DATE OF SERVICE: 05/28/2020 ELECTROENCEPHALOGRAM REPORT EEG NUMBER: [id number]. OBJECTIVE: The patient is a 35-year-old male with a left central epileptic focus on prior studies, who is having increased numbers of seizures. DESCRIPTION: This is a digital study. Electrodes are placed according to international 10-20 system. Bipolar and referential montages are available. Activation procedures typically include hyperventilation and intermittent photic stimulation. INTERPRETATION: The waking background consists of 8-9 Hz, 50-100 microvolt activity. There are frequent sharp waves over electrode T5 and there is an electrographic seizure during which the patient was observed to have mildly altered consciousness, but no convulsive activity arising over the left temporal region. Sleep is not achieved. Hyperventilation and intermittent photic stimulation are noncontributory. IMPRESSION: This electroencephalogram with the patient awake and asleep is abnormal because of an epileptic disturbance of cerebral activity over the left temporal region. An electrographic seizure was recorded. This is consistent of course with epilepsy arising from the left temporal region. Thank you for letting us help with the patient's care. JOSE LOCK MD DR: NITIN/kriss JOB#: [id number] / [id number]
--- NOTE | 2020-05-28 12:31 | PDOC ---
[facility] PROGRESS NOTE Date of Service DOS: DATE: 05/28/20 TIME: 12:30 Chief Complaint Chief Complaint Recurrent seizures Acute on chronic renal failure History of Present Illness History of Present Illness 05/28/2020 Patient seen and examined Discussed with sister Discussed with case management and RN Chart reviewed He did a EEG this morning and it is positive for seizures over the temporal reg ion Vitals/I&O Vitals/I&O: Vital Signs Date Time Temp Pulse Resp B/P (MAP) Pulse Ox O2 Delivery O2 Flow Rate FiO2 05/28/20 08:00 Room Air 05/28/20 07:00 98.3 60 18 154/88 (110) 95 98.3 I & O 05/27/20 05/27/20 05/28/20 14:59 22:59 06:59 Intake Total 2110 ml 1080 ml Output Total 900 ml Balance 2110 ml 180 ml Physical Exam General: Other (Seems post ictal his sister is trying to feed him rice he is confused) Heart: Regular rate Lungs: Clear Abdomen: Normal bowel sounds Extremities: No clubbing Skin: No rashes Labs Labs: Laboratory Tests Test 05/27/20 17:30 White Blood Count 11.5 x10^3/uL (4.0-11.0) Red Blood Count 4.75 x10^6/uL (4.30-5.70) Hemoglobin 14.0 g/dL (13.0-17.5) Hematocrit 40.6 % (39.0-53.0) Mean Corpuscular Volume 85 fL (79-100) Mean Corpuscular Hemoglobin 30 pg (25-35) Mean Corpuscular Hemoglobin Concent 35 g/dL (31-37) Red Cell Distribution Width 13.2 % (11.5-14.5) Platelet Count 219 x10^3/uL (140-400) Neutrophils (%) (Auto) 76 % (31-73) Lymphocytes (%) (Auto) 13 % (24-48) Monocytes (%) (Auto) 10 % (0-9) Eosinophils (%) (Auto) 1 % (0-3) Basophils (%) (Auto) 0 % (0-3) Neutrophils # (Auto) 8.8 x10^3/uL (1.8-7.7) Lymphocytes # (Auto) 1.5 x10^3/uL (1.0-4.8) Monocytes # (Auto) 1.1 x10^3/uL (0.0-1.1) Eosinophils # (Auto) 0.1 x10^3/uL (0.0-0.7) Basophils # (Auto) 0.0 x10^3/uL (0.0-0.2) Sodium Level 144 mmol/L (136-145) Potassium Level 3.5 mmol/L (3.5-5.1) Chloride Level 111 mmol/L (98-107) Carbon Dioxide Level 23 mmol/L (21-32) Anion Gap 10 (6-14) Blood Urea Nitrogen 25 mg/dL (8-26) Creatinine 2.4 mg/dL (0.7-1.3) Estimated GFR (Cockcroft-Gault) 31.0 BUN/Creatinine Ratio 10 (6-20) Glucose Level 107 mg/dL (70-99) Calcium Level 8.8 mg/dL (8.5-10.1) Magnesium Level 2.1 mg/dL (1.8-2.4) Total Bilirubin 0.3 mg/dL (0.2-1.0) Aspartate Amino Transf (AST/SGOT) 82 U/L (15-37) Alanine Aminotransferase (ALT/SGPT) 53 U/L (16-63) Alkaline Phosphatase 71 U/L (46-116) Creatine Kinase 83212 U/L (39-308) Total Protein 7.2 g/dL (6.4-8.2) Albumin 3.4 g/dL (3.4-5.0) Albumin/Globulin Ratio 0.9 (1.0-1.7) Ethyl Alcohol Level < 10 mg/dL (0-10) Assessment and Plan Assessmemt and Plan Problems Medical Problems: (1) Acute renal failure Status: Acute (2) Seizure Status: Acute (3) 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 Medications: Current Medications Medications (Trade) Dose Ordered Sig/Cyndi Route PRN Reason Start Time Stop Time Status Last Admin Dose Admin Sodium Chloride 1,000 ml @ 1,000 mls/hr 1X ONCE IV 05/27/20 17:45 05/27/20 18:44 DC 05/27/20 18:01 Lorazepam (Ativan Inj) 2 mg 1X ONCE IVP 05/27/20 18:30 05/27/20 18:31 DC 05/27/20 18:31 Levetiracetam 1000 mg/Dextrose 110 ml @ 440 mls/hr 1X ONCE IV 05/27/20 18:30 05/27/20 18:44 DC 05/27/20 18:46 Sodium Chloride 1,000 ml @ 1,000 mls/hr 1X ONCE IV 05/27/20 18:30 05/27/20 19:29 DC 05/27/20 18:47 Sodium Chloride 1,000 ml @ 100 mls/hr Q10H IV 05/27/20 18:46 05/28/20 18:45 05/28/20 09:07 Levetiracetam (Keppra) 500 mg BID PO 05/28/20 09:00 05/28/20 09:05 Justicifation of Admission Dx: Justifications for Admission: Justification of Admission Dx: N/A JB GUZMÁN III DO May 28, 2020 12:31
[2020-05-28 14:48] VITALS: BP 162/90
--- NOTE | 2020-05-28 16:04 | NUR ---
SS following for discharge planning. SS reviewed pt chart and discussed with pt RN. Pt is from home with spouse and is currently on room air. Pt self pay. Pt had EEG this morning. Pt was positive for seizures. Per RN, pt will be monitored for one more day. SS will continue to follow for discharge planning.
[2020-05-28 18:41] LABS: BILIRUBIN,URINE NEGATIVE (NEG); CLARITY,URINE CLEAR; COLOR,URINE YELLOW; NITRITE,URINE NEGATIVE (NEG); PROTEIN,URINE NEGATIVE (NEG-TRACE); UROBILINOGEN,URINE 0.2 mg/dL (0.2 mg/dL)
[2020-05-28 18:49] LABS: BARBITURATES NEG (NEG); BENZODIAZEPINES NEG (NEG); CANNABINOIDS NEG (NEG); COCAINE NEG (NEG); METHADONE NEG (NEG); OPIATES NEG (NEG); PHENCYCLIDINE NEG (NEG)
[2020-05-28 18:50] LABS: BACTERIA,URINE FEW /HPF (0-FEW); SQUAMOUS EPITHELIAL CELL,UR OCC /LPF; WBC,URINE RARE /HPF (0-4)
[2020-05-28 18:57] LABS: AMPHETAMINE/METHAMPHETAMINE NEG (NEG)
[2020-05-28 19:00] VITALS: BP 142/90
[2020-05-28] MEDS: ACETAMINOPHEN 325 MG TABLET. PO PRN (20:35)
[2020-05-28 23:00] VITALS: BP 143/90
[2020-05-29] MEDS: IV NORMAL SALINE 1000ML BAG 1,000 ML IV SCH ×3 (01:30→22:32)
[2020-05-29 04:15] VITALS: BP 155/98
[2020-05-29 07:00] VITALS: BP 151/88
[2020-05-29 07:01] LABS: ALBUMIN 2.8 g/dL (3.4-5.0); CREATININE 1.3 mg/dL (0.7-1.3); GFR 62.8; PHOSPHORUS 4.3 mg/dL (2.6-4.7); POTASSIUM 3.6 mmol/L (3.5-5.1); URIC ACID 5.1 mg/dL (3.5-7.2)
[2020-05-29] MEDS: levETIRAcetam 500 MG TABLET PO SCH ×2 (08:53→20:16)
[2020-05-29] MEDS: ACETAMINOPHEN 325 MG TABLET. PO PRN (08:53)
--- NOTE | 2020-05-29 09:58 | PDOC ---
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 EEG 05/28 shows left temporal epileptic activity and an electrographic seizure History of left frontal cavernous hemangioma Left frontal chronic small vessel disease versus chronic demyelination. Decreased left hippocampal size. Renal insufficiency, was already abnormal even before starting levetiracetam, I doubt that it is at fault. Plan Resumed levetiracetam at a lower dose Will next add lamotrigine if needed Renal evaluation Seizure precautions: no heavy machinery, working at heights, or driving until 6 months without a seizure Observe one more night. Subjective No complaints, no additional seizures Objective Vital Signs Date Time Temp Pulse Resp B/P (MAP) Pulse Ox O2 Delivery O2 Flow Rate FiO2 05/29/20 07:00 98.5 58 20 151/88 (109) 96 Room Air 98.5 Intake and Output 05/29/20 07:00 Intake Total 2100 ml Output Total 2025 ml Balance 75 ml Intake Oral 1100 ml IV Total 1000 ml Output Urine Total 2025 ml PHYSICAL EXAM Alert. Oriented to time, place and person. PERRL. EOMI. CN: no focal findings. Muscle tone: normal. Muscle strength:5/5 DTR: 2+ Plantar reflex: flexor Gait: not examined in bed. Sensory exam: no abnormal findings. No cerebellar signs elicited. Review of Relevant I have reviewed the following items mackenzie (where applicable) has been applied. Labs Laboratory Tests Test 05/27/20 17:30 05/28/20 18:11 05/29/20 04:53 White Blood Count 11.5 x10^3/uL (4.0-11.0) Red Blood Count 4.75 x10^6/uL (4.30-5.70) Hemoglobin 14.0 g/dL (13.0-17.5) Hematocrit 40.6 % (39.0-53.0) Mean Corpuscular Volume 85 fL (79-100) Mean Corpuscular Hemoglobin 30 pg (25-35) Mean Corpuscular Hemoglobin Concent 35 g/dL (31-37) Red Cell Distribution Width 13.2 % (11.5-14.5) Platelet Count 219 x10^3/uL (140-400) Neutrophils (%) (Auto) 76 % (31-73) Lymphocytes (%) (Auto) 13 % (24-48) Monocytes (%) (Auto) 10 % (0-9) Eosinophils (%) (Auto) 1 % (0-3) Basophils (%) (Auto) 0 % (0-3) Neutrophils # (Auto) 8.8 x10^3/uL (1.8-7.7) Lymphocytes # (Auto) 1.5 x10^3/uL (1.0-4.8) Monocytes # (Auto) 1.1 x10^3/uL (0.0-1.1) Eosinophils # (Auto) 0.1 x10^3/uL (0.0-0.7) Basophils # (Auto) 0.0 x10^3/uL (0.0-0.2) Sodium Level 144 mmol/L (136-145) 146 mmol/L (136-145) Potassium Level 3.5 mmol/L (3.5-5.1) 3.6 mmol/L (3.5-5.1) Chloride Level 111 mmol/L (98-107) 112 mmol/L (98-107) Carbon Dioxide Level 23 mmol/L (21-32) 22 mmol/L (21-32) Anion Gap 10 (6-14) 12 (6-14) Blood Urea Nitrogen 25 mg/dL (8-26) 15 mg/dL (8-26) Creatinine 2.4 mg/dL (0.7-1.3) 1.3 mg/dL (0.7-1.3) Estimated GFR (Cockcroft-Gault) 31.0 62.8 BUN/Creatinine Ratio 10 (6-20) Glucose Level 107 mg/dL (70-99) 91 mg/dL (70-99) Calcium Level 8.8 mg/dL (8.5-10.1) 8.0 mg/dL (8.5-10.1) Magnesium Level 2.1 mg/dL (1.8-2.4) Total Bilirubin 0.3 mg/dL (0.2-1.0) Aspartate Amino Transf (AST/SGOT) 82 U/L (15-37) Alanine Aminotransferase (ALT/SGPT) 53 U/L (16-63) Alkaline Phosphatase 71 U/L (46-116) Creatine Kinase 16868 U/L (39-308) 30134 U/L (39-308) Total Protein 7.2 g/dL (6.4-8.2) Albumin 3.4 g/dL (3.4-5.0) 2.8 g/dL (3.4-5.0) Albumin/Globulin Ratio 0.9 (1.0-1.7) Ethyl Alcohol Level < 10 mg/dL (0-10) Urine Collection Type Unknown Urine Color Yellow Urine Clarity Clear Urine pH 6.0 (<5.0-8.0) Urine Specific Devine 1.010 (1.000-1.030) Urine Protein Negative mg/dL (NEG-TRACE) Urine Glucose (UA) Negative mg/dL (NEG) Urine Ketones (Stick) Negative mg/dL (NEG) Urine Blood Small (NEG) Urine Nitrite Negative (NEG) Urine Bilirubin Negative (NEG) Urine Urobilinogen Dipstick 0.2 mg/dL (0.2 mg/dL) Urine Leukocyte Esterase Negative (NEG) Urine RBC 3-5 /HPF (0-2) Urine WBC Rare /HPF (0-4) Urine Squamous Epithelial Cells Occ /LPF Urine Bacteria Few /HPF (0-FEW) Urine Eosinophils Eos not observed Urine Random Creatinine 62.2 mg/dL (Not Establ.) Urine Opiates Screen Neg (NEG) Urine Methadone Screen Neg (NEG) Urine Barbiturates Neg (NEG) Urine Phencyclidine Screen Neg (NEG) Urine Amphetamine/Methamphetamine Neg (NEG) Urine Benzodiazepines Screen Neg (NEG) Urine Cocaine Screen Neg (NEG) Urine Cannabinoids Screen Neg (NEG) Urine Ethyl Alcohol Neg (NEG) Uric Acid 5.1 mg/dL (3.5-7.2) Phosphorus Level 4.3 mg/dL (2.6-4.7) Laboratory Tests Test 05/28/20 18:11 05/29/20 04:53 Urine Collection Type Unknown Urine Color Yellow Urine Clarity Clear Urine pH 6.0 (<5.0-8.0) Urine Specific Devine 1.010 (1.000-1.030) Urine Protein Negative mg/dL (NEG-TRACE) Urine Glucose (UA) Negative mg/dL (NEG) Urine Ketones (Stick) Negative mg/dL (NEG) Urine Blood Small (NEG) Urine Nitrite Negative (NEG) Urine Bilirubin Negative (NEG) Urine Urobilinogen Dipstick 0.2 mg/dL (0.2 mg/dL) Urine Leukocyte Esterase Negative (NEG) Urine RBC 3-5 /HPF (0-2) Urine WBC Rare /HPF (0-4) Urine Squamous Epithelial Cells Occ /LPF Urine Bacteria Few /HPF (0-FEW) Urine Eosinophils Eos not observed Urine Random Creatinine 62.2 mg/dL (Not Establ.) Urine Opiates Screen Neg (NEG) Urine Methadone Screen Neg (NEG) Urine Barbiturates Neg (NEG) Urine Phencyclidine Screen Neg (NEG) Urine Amphetamine/Methamphetamine Neg (NEG) Urine Benzodiazepines Screen Neg (NEG) Urine Cocaine Screen Neg (NEG) Urine Cannabinoids Screen Neg (NEG) Urine Ethyl Alcohol Neg (NEG) Sodium Level 146 mmol/L (136-145) Potassium Level 3.6 mmol/L (3.5-5.1) Chloride Level 112 mmol/L (98-107) Carbon Dioxide Level 22 mmol/L (21-32) Anion Gap 12 (6-14) Blood Urea Nitrogen 15 mg/dL (8-26) Creatinine 1.3 mg/dL (0.7-1.3) Estimated GFR (Cockcroft-Gault) 62.8 Glucose Level 91 mg/dL (70-99) Uric Acid 5.1 mg/dL (3.5-7.2) Calcium Level 8.0 mg/dL (8.5-10.1) Phosphorus Level 4.3 mg/dL (2.6-4.7) Creatine Kinase 46857 U/L (39-308) Albumin 2.8 g/dL (3.4-5.0) Medications Current Medications Sodium Chloride 1,000 ml @ 1,000 mls/hr 1X ONCE IV Last administered on 05/27/20at 18:01; Start 05/27/20 at 17:45; Stop 05/27/20 at 18:44; Status DC Lorazepam (Ativan Inj) 2 mg STK-MED ONCE .ROUTE ; Start 05/27/20 at 18:25; Stop 05/27/20 at 18:25; Status DC Lorazepam (Ativan Inj) 2 mg 1X ONCE IVP Last administered on 05/27/20at 18:31; Start 05/27/20 at 18:30; Stop 05/27/20 at 18:31; Status DC Levetiracetam 1000 mg/Dextrose 110 ml @ 440 mls/hr 1X ONCE IV Last administered on 05/27/20at 18:46; Start 05/27/20 at 18:30; Stop 05/27/20 at 18:44; Status DC Sodium Chloride 1,000 ml @ 1,000 mls/hr 1X ONCE IV Last administered on 05/27/20at 18:47; Start 05/27/20 at 18:30; Stop 05/27/20 at 19:29; Status DC Sodium Chloride 1,000 ml @ 100 mls/hr Q10H IV Last administered on 05/28/20at 09:07; Start 05/27/20 at 18:46; Stop 05/28/20 at 18:45; Status DC Lorazepam (Ativan Inj) 2 mg PRN Q10MIN PRN IVP ANXIETY / AGITATION; Start 05/27/20 at 19:00 Levetiracetam (Keppra) 500 mg BID PO Last administered on 05/29/20at 08:53; Start 05/28/20 at 09:00 Acetaminophen (Tylenol) 650 mg PRN Q6HRS PRN PO MILD PAIN / TEMP > 100.3'F Last administered on 05/29/20at 08:53; Start 05/28/20 at 19:45 Sodium Chloride 1,000 ml @ 100 mls/hr Q10H IV Last administered on 05/29/20at 01:30; Start 05/28/20 at 19:45 Active Scripts Active Keppra (Levetiracetam) 750 Mg Tablet 750 Mg PO BID 30 Days Acetaminophen 500 Mg Tablet 500 Mg PO PRN Q6HRS PRN 14 Days Pepcid (Famotidine) 20 Mg Tablet 20 Mg PO BID Vitals/I & O Vital Sign - Last 24 Hours 05/28/20 05/28/20 05/28/20 05/28/20 14:48 19:00 19:10 23:00 Temp 98.0 98.3 98.7 98.0 98.3 98.7 Pulse 53 53 55 Resp 18 24 16 B/P (MAP) 162/90 (114) 142/90 (107) 143/90 (107) Pulse Ox 98 98 95 O2 Delivery Room Air Room Air Room Air Room Air 05/29/20 05/29/20 04:15 07:00 Temp 98.5 98.5 98.5 98.5 Pulse 51 58 Resp 16 20 B/P (MAP) 155/98 (117) 151/88 (109) Pulse Ox 97 96 O2 Delivery Room Air Intake and Output 05/28/20 05/28/20 05/29/20 15:00 23:00 07:00 Intake Total 800 ml 1300 ml Output Total 600 ml 1425 ml Balance -600 ml 800 ml -125 ml Justicifation of Admission Dx: Justifications for Admission: Justification of Admission Dx: N/A JOSE LOCK MD May 29, 2020 09:58
[2020-05-29 11:00] VITALS: BP 147/87
--- NOTE | 2020-05-29 11:10 | PDOC ---
DATE OF SERVICE DATE: 05/29/20 TIME: 11:07 SUBJECTIVE ROS No complaints per Pt, stable OBJECTIVE Vital Signs Vital Signs Date Time Temp Pulse Resp B/P (MAP) Pulse Ox O2 Delivery O2 Flow Rate FiO2 05/29/20 07:00 98.5 58 20 151/88 (109) 96 Room Air 98.5 I & 0 Intake and Output 05/29/20 07:00 Intake Total 2100 ml Output Total 2025 ml Balance 75 ml Intake Oral 1100 ml IV Total 1000 ml Output Urine Total 2025 ml PHYSICAL EXAM Physical Exam GEN: NAD HEEN: om moist , On RA NECK: supple CVS: S1S2, RRR RESP: CTA, No Acc. Muscle Use GI: BS + ve, NO Bruit, Non Tender, Non Distended : No CVA tenderness, No Suprapubic Tenderness, No kendrick Neuro- Per Neurologist exam DERM No Rah EXT No edema DIAGNOSIS/ASSESSMENT Assessment & Plan FAVIAN - suspect 2/2 Rhabdomyolyis Elevated Cr present on 05/25- his earlier Hospitalization -->peaked at 3.0, Improving 1.3 Continue IV Hydration,has Good UOP , CT in 2019 Normal kidneys , UA no eosinophils, Micr hematuria +,no cast No proteinuria E-Lytes stable, Avoid Nephrotoxins, Strict I/O, Rhabdomyolysis- presumably sec to Seizures , CK increasing Continue IVF and Trend CK Recurrent seizures, localization-onset epilepsy, symptomatic. Today's EEG shows left temporal epileptic activity and an electrographic seizure Neurology following - On evetiracetam at a lower dose History of left frontal cavernous hemangioma Left frontal chronic small vessel disease versus chronic demyelination. COMMENT/RELEVANT DATA Meds Current Medications Medications (Trade) Dose Ordered Sig/Cyndi Start Time Stop Time Status Last Admin Dose Admin Acetaminophen (Tylenol) 650 mg PRN Q6HRS PRN 05/28/20 19:45 05/29/20 08:53 650 MG Levetiracetam (Keppra) 500 mg BID 05/28/20 09:00 05/29/20 08:53 500 MG Levetiracetam 1000 mg/Dextrose 110 ml @ 440 mls/hr 1X ONCE 05/27/20 18:30 05/27/20 18:44 DC 05/27/20 18:46 440 MLS/HR Lorazepam (Ativan Inj) 2 mg PRN Q10MIN PRN 05/27/20 19:00 Sodium Chloride 1,000 ml @ 100 mls/hr Q10H 05/28/20 19:45 05/29/20 01:30 100 MLS/HR Lab Laboratory Tests Test 05/28/20 18:11 05/29/20 04:53 Urine Collection Type Unknown Urine Color Yellow Urine Clarity Clear Urine pH 6.0 (<5.0-8.0) Urine Specific [place] 1.010 (1.000-1.030) Urine Protein Negative mg/dL (NEG-TRACE) Urine Glucose (UA) Negative mg/dL (NEG) Urine Ketones (Stick) Negative mg/dL (NEG) Urine Blood Small (NEG) Urine Nitrite Negative (NEG) Urine Bilirubin Negative (NEG) Urine Urobilinogen Dipstick 0.2 mg/dL (0.2 mg/dL) Urine Leukocyte Esterase Negative (NEG) Urine RBC 3-5 /HPF (0-2) Urine WBC Rare /HPF (0-4) Urine Squamous Epithelial Cells Occ /LPF Urine Bacteria Few /HPF (0-FEW) Urine Eosinophils Eos not observed Urine Random Creatinine 62.2 mg/dL (Not Establ.) Urine Opiates Screen Neg (NEG) Urine Methadone Screen Neg (NEG) Urine Barbiturates Neg (NEG) Urine Phencyclidine Screen Neg (NEG) Urine Amphetamine/Methamphetamine Neg (NEG) Urine Benzodiazepines Screen Neg (NEG) Urine Cocaine Screen Neg (NEG) Urine Cannabinoids Screen Neg (NEG) Urine Ethyl Alcohol Neg (NEG) Sodium Level 146 mmol/L (136-145) Potassium Level 3.6 mmol/L (3.5-5.1) Chloride Level 112 mmol/L (98-107) Carbon Dioxide Level 22 mmol/L (21-32) Anion Gap 12 (6-14) Blood Urea Nitrogen 15 mg/dL (8-26) Creatinine 1.3 mg/dL (0.7-1.3) Estimated GFR (Cockcroft-Gault) 62.8 Glucose Level 91 mg/dL (70-99) Uric Acid 5.1 mg/dL (3.5-7.2) Calcium Level 8.0 mg/dL (8.5-10.1) Phosphorus Level 4.3 mg/dL (2.6-4.7) Creatine Kinase 77106 U/L (39-308) Albumin 2.8 g/dL (3.4-5.0) Results All relevant outside records, renal labs, imaging studies, telemetry/EKG's were reviewed. Justicifation of Admission Dx: Justifications for Admission: Justification of Admission Dx: N/A ASAEL MARIE MD May 29, 2020 11:10
--- NOTE | 2020-05-29 11:20 | PDOC ---
[employer] PROGRESS NOTE Date of Service DOS: DATE: 05/29/20 TIME: 11:16 Chief Complaint Chief Complaint Recurrent seizures Acute on chronic renal failure History of Present Illness History of Present Illness 05/29/2020 Patient was seen and examined Patient was in NAD Discussed with RN Chart reviewed 05/28/2020 Patient seen and examined Discussed with sister Discussed with case management and RN Chart reviewed He did a EEG this morning and it is positive for seizures over the temporal region Vitals/I&O Vitals/I&O: Vital Signs Date Time Temp Pulse Resp B/P (MAP) Pulse Ox O2 Delivery O2 Flow Rate FiO2 05/29/20 07:00 98.5 58 20 151/88 (109) 96 Room Air 98.5 I & O 05/28/20 05/28/20 05/29/20 15:00 23:00 07:00 Intake Total 800 ml 1300 ml Output Total 600 ml 1425 ml Balance -600 ml 800 ml -125 ml Physical Exam General: No acute distress, Other (Seems post ictal his sister is trying to feed him rice he is confused) Heart: Regular rate Lungs: Clear Abdomen: Normal bowel sounds Extremities: No clubbing Skin: No rashes Labs Labs: Laboratory Tests Test 05/28/20 18:11 05/29/20 04:53 Urine Collection Type Unknown Urine Color Yellow Urine Clarity Clear Urine pH 6.0 (<5.0-8.0) Urine Specific [place] 1.010 (1.000-1.030) Urine Protein Negative mg/dL (NEG-TRACE) Urine Glucose (UA) Negative mg/dL (NEG) Urine Ketones (Stick) Negative mg/dL (NEG) Urine Blood Small (NEG) Urine Nitrite Negative (NEG) Urine Bilirubin Negative (NEG) Urine Urobilinogen Dipstick 0.2 mg/dL (0.2 mg/dL) Urine Leukocyte Esterase Negative (NEG) Urine RBC 3-5 /HPF (0-2) Urine WBC Rare /HPF (0-4) Urine Squamous Epithelial Cells Occ /LPF Urine Bacteria Few /HPF (0-FEW) Urine Eosinophils Eos not observed Urine Random Creatinine 62.2 mg/dL (Not Establ.) Urine Opiates Screen Neg (NEG) Urine Methadone Screen Neg (NEG) Urine Barbiturates Neg (NEG) Urine Phencyclidine Screen Neg (NEG) Urine Amphetamine/Methamphetamine Neg (NEG) Urine Benzodiazepines Screen Neg (NEG) Urine Cocaine Screen Neg (NEG) Urine Cannabinoids Screen Neg (NEG) Urine Ethyl Alcohol Neg (NEG) Sodium Level 146 mmol/L (136-145) Potassium Level 3.6 mmol/L (3.5-5.1) Chloride Level 112 mmol/L (98-107) Carbon Dioxide Level 22 mmol/L (21-32) Anion Gap 12 (6-14) Blood Urea Nitrogen 15 mg/dL (8-26) Creatinine 1.3 mg/dL (0.7-1.3) Estimated GFR (Cockcroft-Gault) 62.8 Glucose Level 91 mg/dL (70-99) Uric Acid 5.1 mg/dL (3.5-7.2) Calcium Level 8.0 mg/dL (8.5-10.1) Phosphorus Level 4.3 mg/dL (2.6-4.7) Creatine Kinase 96533 U/L (39-308) Albumin 2.8 g/dL (3.4-5.0) Review of Systems Review of Systems: Denies pain Denies weakness Assessment and Plan Assessmemt and Plan Problems Medical Problems: (1) Acute renal failure Status: Acute (2) Seizure Status: Acute (3) 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 Medications: Current Medications Medications (Trade) Dose Ordered Sig/Cyndi Route PRN Reason Start Time Stop Time Status Last Admin Dose Admin Acetaminophen (Tylenol) 650 mg PRN Q6HRS PRN PO MILD PAIN / TEMP > 100.3'F 05/28/20 19:45 05/29/20 08:53 Sodium Chloride 1,000 ml @ 100 mls/hr Q10H IV 05/28/20 19:45 05/29/20 01:30 Justicifation of Admission Dx: Justifications for Admission: Justification of Admission Dx: N/A JB GUZMÁN III DO May 29, 2020 11:20
[2020-05-29] MEDS: lamoTRIgine 25 MG TABLET. PO SCH (13:19)
--- NOTE | 2020-05-29 14:09 | NUR ---
SS following up with discharge planning. SS reviewed pt chart and discussed with pt RN. Pt is currently on room air. Discharge plan is to home when medically ready. Possible discharge to home tomorrow. SS will continue to follow for discharge planning.
[2020-05-29 15:00] VITALS: BP 162/97
[2020-05-29 19:04] VITALS: BP 178/98
[2020-05-29 23:41] VITALS: BP 151/88
[2020-05-30 03:00] VITALS: BP 170/96
[2020-05-30 07:00] VITALS: BP 155/95
[2020-05-30] MEDS: ACETAMINOPHEN 325 MG TABLET. PO PRN ×2 (08:01→20:23)
[2020-05-30] MEDS: lamoTRIgine 25 MG TABLET. PO SCH (08:01)
[2020-05-30] MEDS: levETIRAcetam 500 MG TABLET PO SCH ×2 (08:01→20:22)
[2020-05-30] MEDS: IV NORMAL SALINE 1000ML BAG 1,000 ML IV SCH ×2 (08:05→18:22)
[2020-05-30 08:27] LABS: CALCIUM 8.1 mg/dL (8.5-10.1); CREATININE 1.3 mg/dL (0.7-1.3); GFR 62.8; POTASSIUM 3.4 mmol/L (3.5-5.1)
[2020-05-30] MEDS ORDERED: BUTALB/APAP/CAFEIN 50/325/40MG TABLET. PO PRN (09:00)
--- NOTE | 2020-05-30 09:13 | PDOC ---
DATE OF SERVICE DATE: 05/30/20 TIME: 09:13 SUBJECTIVE ROS Continues to hv seizures OBJECTIVE Vital Signs Vital Signs Date Time Temp Pulse Resp B/P (MAP) Pulse Ox O2 Delivery O2 Flow Rate FiO2 05/30/20 03:00 97.8 54 20 170/96 (120) 98 Room Air 97.8 I & 0 Intake and Output 05/30/20 06:59 Intake Total 230 ml Output Total 700 ml Balance -470 ml Intake Oral 230 ml Output Urine Total 700 ml # Voids 2 PHYSICAL EXAM Physical Exam GEN: NAD HEEN: om moist , On RA NECK: supple CVS: S1S2, RRR RESP: CTA, No Acc. Muscle Use GI: BS + ve, NO Bruit, Non Tender, Non Distended : No CVA tenderness, No Suprapubic Tenderness, No kendrick Neuro- Per Neurologist exam DERM No Rah EXT No edema DIAGNOSIS/ASSESSMENT Assessment & Plan FAVIAN - suspect 2/2 Rhabdomyolyis Elevated Cr present on 05/25- his earlier Hospitalization -->peaked at 3.0, Improving 1.3 (baseline 0.0-1.3 since 2017 ) Good UOP , CT in 2019 Normal kidneys , UA no eosinophils, Micr hematuria +,no cast No proteinuria Avoid Nephrotoxins, Strict I/O, Rhabdomyolysis- presumably sec to Seizures , CK decreasing Trend CK , continue IVF Recurrent seizures, localization-onset epilepsy, symptomatic. Today's EEG shows left temporal epileptic activity and an electrographic seizure Neurology following - On Levetiracetam and Lomotrigine per neurology Renal function has improved and is unlikley contributing to his Seizures History of left frontal cavernous hemangioma Left frontal chronic small vessel disease versus chronic demyelination. COMMENT/RELEVANT DATA Meds Current Medications Medications (Trade) Dose Ordered Sig/Cyndi Start Time Stop Time Status Last Admin Dose Admin Acetaminophen (Tylenol) 650 mg PRN Q6HRS PRN 05/28/20 19:45 05/30/20 08:01 650 MG Acetaminophen/ Butalbital/ Caffeine (Fioricet) 1 tab PRN Q6HRS PRN 05/30/20 09:00 Lamotrigine (LaMICtal) 25 mg DAILY 05/29/20 12:30 05/30/20 08:01 25 MG Levetiracetam (Keppra) 500 mg BID 05/28/20 09:00 05/30/20 08:01 500 MG Levetiracetam 1000 mg/Dextrose 110 ml @ 440 mls/hr 1X ONCE 05/27/20 18:30 05/27/20 18:44 DC 05/27/20 18:46 440 MLS/HR Lorazepam (Ativan Inj) 2 mg PRN Q10MIN PRN 05/27/20 19:00 05/30/20 08:05 2 MG Sodium Chloride 1,000 ml @ 100 mls/hr Q10H 05/28/20 19:45 05/30/20 08:05 100 MLS/HR Lab Laboratory Tests Test 05/30/20 02:35 Sodium Level 146 mmol/L (136-145) Potassium Level 3.4 mmol/L (3.5-5.1) Chloride Level 109 mmol/L (98-107) Carbon Dioxide Level 23 mmol/L (21-32) Anion Gap 14 (6-14) Blood Urea Nitrogen 11 mg/dL (8-26) Creatinine 1.3 mg/dL (0.7-1.3) Estimated GFR (Cockcroft-Gault) 62.8 Glucose Level 84 mg/dL (70-99) Calcium Level 8.1 mg/dL (8.5-10.1) Results All relevant outside records, renal labs, imaging studies, telemetry/EKG's were reviewed. Justicifation of Admission Dx: Justifications for Admission: Justification of Admission Dx: N/A ASAEL MARIE MD May 30, 2020 09:13
--- NOTE | 2020-05-30 09:44 | PDOC ---
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 EEG 05/28 shows left temporal epileptic activity and an electrographic seizure Still having partial-complex episodes, renal failure probably exacerbates this. Ictal headaches History of left frontal cavernous hemangioma Left frontal chronic small vessel disease versus chronic demyelination. Decreased left hippocampal size. Renal insufficiency, was already abnormal even before starting levetiracetam, I doubt that it is at fault. 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 Oriented to time, place and person. PERRL. EOMI. CN: no focal findings. Muscle tone: normal. Muscle strength:5/5 DTR: 2+ Plantar reflex: flexor Gait: not examined in bed. Sensory exam: no abnormal findings. No cerebellar signs elicited. Review of Relevant I have reviewed the following items mackenzie (where applicable) has been applied. Labs Laboratory Tests Test 05/28/20 18:11 05/29/20 04:53 05/30/20 02:35 Urine Collection Type Unknown Urine Color Yellow Urine Clarity Clear Urine pH 6.0 (<5.0-8.0) Urine Specific [place] 1.010 (1.000-1.030) Urine Protein Negative mg/dL (NEG-TRACE) Urine Glucose (UA) Negative mg/dL (NEG) Urine Ketones (Stick) Negative mg/dL (NEG) Urine Blood Small (NEG) Urine Nitrite Negative (NEG) Urine Bilirubin Negative (NEG) Urine Urobilinogen Dipstick 0.2 mg/dL (0.2 mg/dL) Urine Leukocyte Esterase Negative (NEG) Urine RBC 3-5 /HPF (0-2) Urine WBC Rare /HPF (0-4) Urine Squamous Epithelial Cells Occ /LPF Urine Bacteria Few /HPF (0-FEW) Urine Eosinophils Eos not observed Urine Random Creatinine 62.2 mg/dL (Not Establ.) Urine Random Sodium 110 mmol/L (Not Estab.) Urine Opiates Screen Neg (NEG) Urine Methadone Screen Neg (NEG) Urine Barbiturates Neg (NEG) Urine Phencyclidine Screen Neg (NEG) Urine Amphetamine/Methamphetamine Neg (NEG) Urine Benzodiazepines Screen Neg (NEG) Urine Cocaine Screen Neg (NEG) Urine Cannabinoids Screen Neg (NEG) Urine Ethyl Alcohol Neg (NEG) Sodium Level 146 mmol/L (136-145) 146 mmol/L (136-145) Potassium Level 3.6 mmol/L (3.5-5.1) 3.4 mmol/L (3.5-5.1) Chloride Level 112 mmol/L (98-107) 109 mmol/L (98-107) Carbon Dioxide Level 22 mmol/L (21-32) 23 mmol/L (21-32) Anion Gap 12 (6-14) 14 (6-14) Blood Urea Nitrogen 15 mg/dL (8-26) 11 mg/dL (8-26) Creatinine 1.3 mg/dL (0.7-1.3) 1.3 mg/dL (0.7-1.3) Estimated GFR (Cockcroft-Gault) 62.8 62.8 Glucose Level 91 mg/dL (70-99) 84 mg/dL (70-99) Uric Acid 5.1 mg/dL (3.5-7.2) Calcium Level 8.0 mg/dL (8.5-10.1) 8.1 mg/dL (8.5-10.1) Phosphorus Level 4.3 mg/dL (2.6-4.7) Creatine Kinase 01404 U/L (39-308) 52170 U/L (39-308) Albumin 2.8 g/dL (3.4-5.0) Laboratory Tests Test 05/30/20 02:35 Sodium Level 146 mmol/L (136-145) Potassium Level 3.4 mmol/L (3.5-5.1) Chloride Level 109 mmol/L (98-107) Carbon Dioxide Level 23 mmol/L (21-32) Anion Gap 14 (6-14) Blood Urea Nitrogen 11 mg/dL (8-26) Creatinine 1.3 mg/dL (0.7-1.3) Estimated GFR (Cockcroft-Gault) 62.8 Glucose Level 84 mg/dL (70-99) Calcium Level 8.1 mg/dL (8.5-10.1) Creatine Kinase 42441 U/L (39-308) Medications Current Medications Sodium Chloride 1,000 ml @ 1,000 mls/hr 1X ONCE IV Last administered on 05/27/20at 18:01; Start 05/27/20 at 17:45; Stop 05/27/20 at 18:44; Status DC Lorazepam (Ativan Inj) 2 mg STK-MED ONCE .ROUTE ; Start 05/27/20 at 18:25; Stop 05/27/20 at 18:25; Status DC Lorazepam (Ativan Inj) 2 mg 1X ONCE IVP Last administered on 05/27/20at 18:31; Start 05/27/20 at 18:30; Stop 05/27/20 at 18:31; Status DC Levetiracetam 1000 mg/Dextrose 110 ml @ 440 mls/hr 1X ONCE IV Last ad ministered on 05/27/20at 18:46; Start 05/27/20 at 18:30; Stop 05/27/20 at 18:44; Status DC Sodium Chloride 1,000 ml @ 1,000 mls/hr 1X ONCE IV Last administered on 05/27/20at 18:47; Start 05/27/20 at 18:30; Stop 05/27/20 at 19:29; Status DC Sodium Chloride 1,000 ml @ 100 mls/hr Q10H IV Last administered on 05/28/20at 09:07; Start 05/27/20 at 18:46; Stop 05/28/20 at 18:45; Status DC Lorazepam (Ativan Inj) 2 mg PRN Q10MIN PRN IVP ANXIETY / AGITATION Last administered on 05/30/20at 08:05; Start 05/27/20 at 19:00 Levetiracetam (Keppra) 500 mg BID PO Last administered on 05/30/20at 08:01; Start 05/28/20 at 09:00 Acetaminophen (Tylenol) 650 mg PRN Q6HRS PRN PO MILD PAIN / TEMP > 100.3'F Last administered on 05/30/20at 08:01; Start 05/28/20 at 19:45 Sodium Chloride 1,000 ml @ 100 mls/hr Q10H IV Last administered on 05/30/20at 08:05; Start 05/28/20 at 19:45 Lamotrigine (LaMICtal) 25 mg DAILY PO Last administered on 05/30/20at 08:01; Start 05/29/20 at 12:30 Acetaminophen/ Butalbital/ Caffeine (Fioricet) 1 tab PRN Q6HRS PRN PO MIGRAINE HEADACHE; Start 05/30/20 at 09:00 Active Scripts Active Keppra (Levetiracetam) 750 Mg Tablet 750 Mg PO BID 30 Days Acetaminophen 500 Mg Tablet 500 Mg PO PRN Q6HRS PRN 14 Days Pepcid (Famotidine) 20 Mg Tablet 20 Mg PO BID Vitals/I & O Vital Sign - Last 24 Hours 05/29/20 05/29/20 05/29/20 05/29/20 11:00 15:00 19:04 20:00 Temp 98.2 98.4 98.0 98.2 98.4 98.0 Pulse 58 57 50 Resp 20 20 20 B/P (MAP) 147/87 (107) 162/97 (118) 178/98 (124) Pulse Ox 95 97 98 O2 Delivery Room Air Room Air Room Air Room Air 05/29/20 05/30/20 23:41 03:00 Temp 98.3 97.8 98.3 97.8 Pulse 52 54 Resp 20 B/P (MAP) 151/88 (109) 170/96 (120) Pulse Ox 95 98 O2 Delivery Room Air Room Air Intake and Output 05/29/20 05/29/20 05/30/20 14:59 22:59 06:59 Intake Total 200 ml 30 ml Output Total 200 ml 500 ml Balance 0 ml 30 ml -500 ml Justicifation of Admission Dx: Justifications for Admission: Justification of Admission Dx: N/A JOSE LOCK MD May 30, 2020 09:44
[2020-05-30 11:00] VITALS: BP 136/78
--- NOTE | 2020-05-30 11:19 | NUR ---
SS following up with discharge planning. SS reviewed pt chart and discussed with pt RN. Pt is currently on room air. Neurology continuing to monitor. Not stable for discharge at this time. Discharge plan is to home when medically ready. SS will continue to follow for discharge planning.
[2020-05-30 15:00] VITALS: BP 154/97
[2020-05-30] MEDS ORDERED: FAMOTIDINE 20 MG/2 ML VIAL IVP PRN (18:45)
[2020-05-30 19:41] VITALS: BP 164/99
--- NOTE | 2020-05-30 22:47 | PDOC ---
PROGRESS NOTES Date of Service: DATE: 05/30/20 TIME: 22:40 Chief Complaint Chief Complaint Recurrent seizures, localization-onset epilepsy, symptomatic. EEG 05/28 shows left temporal epileptic activity and an electrographic seizure Still having partial-complex episodes, renal failure probably exacerbates this. Ictal headaches History of left frontal cavernous hemangioma Left frontal chronic small vessel disease versus chronic demyelination. Acute on chronic renal failure FAVIAN - suspect 2/2 Rhabdomyolyis Plan: follow rec from healthcare network consultant reassess in the am History of Present Illness History of Present Illness 05/30/2020 says he feels "tension" all over says he is sill having trouble with his head history with the help of translation line. 05/29/2020 Patient was seen and examined Patient was in NAD Discussed with RN Chart reviewed 05/28/2020 Patient seen and examined Discussed with sister Discussed with case management and RN Chart reviewed He did a EEG this morning and it is positive for seizures over the temporal region Vitals Vitals Vital Signs Date Time Temp Pulse Resp B/P (MAP) Pulse Ox O2 Delivery O2 Flow Rate FiO2 05/30/20 19:56 Room Air 05/30/20 19:41 97.9 60 20 164/99 (120) 98 97.9 Physical Exam General: No acute distress, Other (Seems post ictal his sister is trying to feed him rice he is confused) Heart: Regular rate Lungs: Clear Abdomen: Normal bowel sounds Extremities: No clubbing Skin: No rashes Labs LABS Laboratory Tests Test 05/30/20 02:35 Sodium Level 146 mmol/L (136-145) Potassium Level 3.4 mmol/L (3.5-5.1) Chloride Level 109 mmol/L (98-107) Carbon Dioxide Level 23 mmol/L (21-32) Anion Gap 14 (6-14) Blood Urea Nitrogen 11 mg/dL (8-26) Creatinine 1.3 mg/dL (0.7-1.3) Estimated GFR (Cockcroft-Gault) 62.8 Glucose Level 84 mg/dL (70-99) Calcium Level 8.1 mg/dL (8.5-10.1) Creatine Kinase 02712 U/L (39-308) Assessment and Plan Assessmemt and Plan Problems Medical Problems: (1) Acute renal failure Status: Acute (2) Seizure Status: Acute (3) 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 Labs Laboratory Tests Test 05/29/20 04:53 05/30/20 02:35 Sodium Level 146 mmol/L (136-145) 146 mmol/L (136-145) Potassium Level 3.6 mmol/L (3.5-5.1) 3.4 mmol/L (3.5-5.1) Chloride Level 112 mmol/L (98-107) 109 mmol/L (98-107) Carbon Dioxide Level 22 mmol/L (21-32) 23 mmol/L (21-32) Anion Gap 12 (6-14) 14 (6-14) Blood Urea Nitrogen 15 mg/dL (8-26) 11 mg/dL (8-26) Creatinine 1.3 mg/dL (0.7-1.3) 1.3 mg/dL (0.7-1.3) Estimated GFR (Cockcroft-Gault) 62.8 62.8 Glucose Level 91 mg/dL (70-99) 84 mg/dL (70-99) Uric Acid 5.1 mg/dL (3.5-7.2) Calcium Level 8.0 mg/dL (8.5-10.1) 8.1 mg/dL (8.5-10.1) Phosphorus Level 4.3 mg/dL (2.6-4.7) Creatine Kinase 39872 U/L (39-308) 92231 U/L (39-308) Albumin 2.8 g/dL (3.4-5.0) Laboratory Tests Test 05/30/20 02:35 Sodium Level 146 mmol/L (136-145) Potassium Level 3.4 mmol/L (3.5-5.1) Chloride Level 109 mmol/L (98-107) Carbon Dioxide Level 23 mmol/L (21-32) Anion Gap 14 (6-14) Blood Urea Nitrogen 11 mg/dL (8-26) Creatinine 1.3 mg/dL (0.7-1.3) Estimated GFR (Cockcroft-Gault) 62.8 Glucose Level 84 mg/dL (70-99) Calcium Level 8.1 mg/dL (8.5-10.1) Creatine Kinase 26852 U/L (39-308) Medications Current Medications Sodium Chloride 1,000 ml @ 1,000 mls/hr 1X ONCE IV Last administered on 05/27/20 18:01; Start 05/27/20 at 17:45; Stop 05/27/20 at 18:44; Status DC Lorazepam (Ativan Inj) 2 mg STK-MED ONCE .ROUTE ; Start 05/27/20 at 18:25; Stop 05/27/20 at 18:25; Status DC Lorazepam (Ativan Inj) 2 mg 1X ONCE IVP Last administered on 05/27/20at 18:31; Start 05/27/20 at 18:30; Stop 05/27/20 at 18:31; Status DC Levetiracetam 1000 mg/Dextrose 110 ml @ 440 mls/hr 1X ONCE IV Last administered on 05/27/20at 18:46; Start 05/27/20 at 18:30; Stop 05/27/20 at 18:44; Status DC Sodium Chloride 1,000 ml @ 1,000 mls/hr 1X ONCE IV Last administered on 05/27/20at 18:47; Start 05/27/20 at 18:30; Stop 05/27/20 at 19:29; Status DC Sodium Chloride 1,000 ml @ 100 mls/hr Q10H IV Last administered on 05/28/20at 09:07; Start 05/27/20 at 18:46; Stop 05/28/20 at 18:45; Status DC Lorazepam (Ativan Inj) 2 mg PRN Q10MIN PRN IVP ANXIETY / AGITATION Last administered on 05/30/20 18:27; Start 05/27/20 at 19:00 Levetiracetam (Keppra) 500 mg BID PO Last administered on 05/30/20at 20:22; Start 05/28/20 at 09:00 Acetaminophen (Tylenol) 650 mg PRN Q6HRS PRN PO MILD PAIN / TEMP > 100.3'F Last administered on 05/30/20at 20:23; Start 05/28/20 at 19:45 Sodium Chloride 1,000 ml @ 100 mls/hr Q10H IV Last administered on 05/30/20at 18:22; Start 05/28/20 at 19:45 Lamotrigine (LaMICtal) 25 mg DAILY PO Last administered on 05/30/20at 08:01; Start 05/29/20 at 12:30 Acetaminophen/ Butalbital/ Caffeine (Fioricet) 1 tab PRN Q6HRS PRN PO MIGRAINE HEADACHE Last administered on 05/30/20at 18:18; Start 05/30/20 at 09:00 Famotidine (Pepcid Vial) 20 mg PRN Q12HRS PRN IVP GI UPSET Last administered on 05/30/20at 18:59; Start 05/30/20 at 18:45 Active Scripts Active Keppra (Levetiracetam) 750 Mg Tablet 750 Mg PO BID 30 Days Acetaminophen 500 Mg Tablet 500 Mg PO PRN Q6HRS PRN 14 Days Pepcid (Famotidine) 20 Mg Tablet 20 Mg PO BID Vitals/I & O Vital Sign - Last 24 Hours 05/29/20 05/30/20 05/30/20 05/30/20 23:41 03:00 07:00 08:00 Temp 98.3 97.8 98.3 98.3 97.8 98.3 Pulse 52 54 63 Resp 20 20 B/P (MAP) 151/88 (109) 170/96 (120) 155/95 (115) Pulse Ox 95 98 96 O2 Delivery Room Air Room Air Room Air Room Air 05/30/20 05/30/20 05/30/20 05/30/20 11:00 15:00 19:41 19:56 Temp 98.2 98.1 97.9 98.2 98.1 97.9 Pulse 72 60 60 Resp 20 20 20 B/P (MAP) 136/78 (97) 154/97 (116) 164/99 (120) Pulse Ox 94 96 98 O2 Delivery Room Air Room Air Room Air Room Air Intake and Output 05/29/20 05/29/20 05/30/20 15:00 23:00 07:00 Intake Total 200 ml 30 ml Output Total 200 ml 500 ml Balance 0 ml 30 ml -500 ml Justicifation of Admission Dx: Justifications for Admission: Justification of Admission Dx: N/A MAYRA DANIELS MD May 30, 2020 22:47
[2020-05-30 23:08] VITALS: BP 142/85
[2020-05-31 03:27] VITALS: BP 153/88
[2020-05-31] MEDS: IV NORMAL SALINE 1000ML BAG 1,000 ML IV SCH (04:10)
[2020-05-31 07:00] VITALS: BP 130/83
[2020-05-31 08:33] LABS: CALCIUM 8.8 mg/dL (8.5-10.1); CREATININE 1.1 mg/dL (0.7-1.3); GFR 76.2; POTASSIUM 3.4 mmol/L (3.5-5.1)
[2020-05-31] MEDS: ACETAMINOPHEN 325 MG TABLET. PO PRN (09:29)
[2020-05-31] MEDS: lamoTRIgine 25 MG TABLET. PO SCH (09:30)
[2020-05-31] MEDS: levETIRAcetam 500 MG TABLET PO SCH (09:30)
[2020-05-31 10:36] VITALS: BP 132/81
--- NOTE | 2020-05-31 10:44 | NUR ---
SS following up with discharge planning. SS reviewed pt chart and discussed with pt RN. Pt is currently on room air. Neurology continues to monitor. Pt has had seizure activity within the past 24 hours. Per RN, medication adjustments being made. SS will continue to follow for discharge planning.
--- NOTE | 2020-05-31 10:48 | PDOC ---
DATE OF SERVICE DATE: 05/31/20 TIME: 10:46 SUBJECTIVE ROS stable OBJECTIVE Vital Signs Vital Signs Date Time Temp Pulse Resp B/P (MAP) Pulse Ox O2 Delivery O2 Flow Rate FiO2 05/31/20 10:36 98.1 77 16 132/81 (98) 95 Room Air 98.1 I & 0 Intake and Output 05/31/20 07:00 Intake Total 1480 ml Output Total 700 ml Balance 780 ml Intake Oral 480 ml IV Total 1000 ml Output Urine Total 700 ml # Voids 7 PHYSICAL EXAM Physical Exam GEN: NAD HEEN: om moist , On RA NECK: supple CVS: S1S2, RRR RESP: CTA, No Acc. Muscle Use GI: BS + ve, NO Bruit, Non Tender, Non Distended : No CVA tenderness, No Suprapubic Tenderness, No kendrick Neuro- Per Neurologist exam DERM No Rah EXT No edema DIAGNOSIS/ASSESSMENT Assessment & Plan FAVIAN - suspect 2/2 Rhabdomyolyis - Resolved Elevated Cr present on 05/25- his earlier Hospitalization -->peaked at 3.0 (baseline 0.0-1.3 since 2017 ) Good UOP , CT in 2019 Normal kidneys , UA no eosinophils, Micr hematuria +,no cast No proteinuria Avoid Nephrotoxins, Strict I/O, Rhabdomyolysis- presumably sec to Seizures , CK decreasing Trend CK , improving HypoKalemia- Mild, replace Recurrent seizures, localization-onset epilepsy, symptomatic. Today's EEG shows left temporal epileptic activity and an electrographic seizure Neurology following - On Levetiracetam and Lomotrigine per neurology Renal function has improved and is unlikley contributing to his Seizures History of left frontal cavernous hemangioma Left frontal chronic small vessel disease versus chronic demyelination. DC per Primary and Neurology COMMENT/RELEVANT DATA Meds Current Medications Medications (Trade) Dose Ordered Sig/Cyndi Start Time Stop Time Status Last Admin Dose Admin Acetaminophen (Tylenol) 650 mg PRN Q6HRS PRN 05/28/20 19:45 05/31/20 09:29 650 MG Acetaminophen/ Butalbital/ Caffeine (Fioricet) 1 tab PRN Q6HRS PRN 05/30/20 09:00 05/30/20 18:18 1 TAB Famotidine (Pepcid Vial) 20 mg PRN Q12HRS PRN 05/30/20 18:45 05/30/20 18:59 20 MG Lamotrigine (LaMICtal) 25 mg DAILY 05/29/20 12:30 05/31/20 09:30 25 MG Levetiracetam (Keppra) 500 mg BID 05/28/20 09:00 05/31/20 09:30 500 MG Levetiracetam 1000 mg/Dextrose 110 ml @ 440 mls/hr 1X ONCE 05/27/20 18:30 05/27/20 18:44 DC 05/27/20 18:46 440 MLS/HR Lorazepam (Ativan Inj) 2 mg PRN Q10MIN PRN 05/27/20 19:00 05/30/20 18:27 2 MG Sodium Chloride 1,000 ml @ 100 mls/hr Q10H 05/28/20 19:45 05/31/20 04:10 100 MLS/HR Lab Laboratory Tests Test 05/31/20 06:20 Sodium Level 145 mmol/L (136-145) Potassium Level 3.4 mmol/L (3.5-5.1) Chloride Level 108 mmol/L (98-107) Carbon Dioxide Level 27 mmol/L (21-32) Anion Gap 10 (6-14) Blood Urea Nitrogen 12 mg/dL (8-26) Creatinine 1.1 mg/dL (0.7-1.3) Estimated GFR (Cockcroft-Gault) 76.2 Glucose Level 97 mg/dL (70-99) Calcium Level 8.8 mg/dL (8.5-10.1) Creatine Kinase 8173 U/L (39-308) Results All relevant outside records, renal labs, imaging studies, telemetry/EKG's were reviewed. Justicifation of Admission Dx: Justifications for Admission: Justification of Admission Dx: N/A ASAEL MARIE MD May 31, 2020 10:48
--- NOTE | 2020-05-31 12:19 | PDOC ---
Provider Note Provider Note Lamotrigine schedule 25 mg daily for 1 week (06/01-) 25 mg twice a day for 2 weeks (06/08-06/21) 25 mg 2 twice daily for 2 weeks (06/22-) Then 100 mg twice daily (07/06 and after) Primary will send RX to pharmacy Continue levetiracetam 750 mg twice a day Make an appointment with me or my nurse practitioner in 4-6 weeks Justicifation of Admission Dx: Justifications for Admission: Justification of Admission Dx: N/A JOSE LOCK MD May 31, 2020 12:19
--- NOTE | 2020-05-31 12:39 | PDOC ---
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 EEG 05/28 shows left temporal epileptic activity and an electrographic seizure Still having partial-complex episodes 3 times in past day, brief, renal failure probably exacerbates this. Ictal headaches History of left frontal cavernous hemangioma Left frontal chronic small vessel disease versus chronic demyelination. Decreased left hippocampal size. Renal insufficiency, was already abnormal even before starting levetiracetam, I doubt that it is at fault. Renal has signed off Plan Increase levetiracetam back to 750 mg bid Started lamotrigine, but this is a slow titration upward, I may need to switch to a different medication Fioricet PRN headache Seizure precautions: no heavy machinery, working at heights, or driving until 6 months without a seizure Okay for discharge Follow up me or my [employer]PERATOR in 4-6 weeks I discussed with patient and family today using Armenian rotary pump operator Instructions to patient: Lamtotrigine: 25 mg daily for 1 week (06/01-) 25 mg twice a day for 2 weeks (06/08-06/21) 25 mg 2 twice daily for 2 weeks (06/22-) Then 100 mg twice daily (07/06 and after) Primary will send RX to pharmacy Continue levetiracetam 750 mg twice a day Make an appointment with me or my nurse practitioner in 4-6 weeks Subjective headaches better Objective Vital Signs Date Time Temp Pulse Resp B/P (MAP) Pulse Ox O2 Delivery O2 Flow Rate FiO2 05/31/20 10:36 98.1 77 16 132/81 (98) 95 Room Air 98.1 Intake and Output 05/31/20 07:00 Intake Total 1480 ml Output Total 700 ml Balance 780 ml Intake Oral 480 ml IV Total 1000 ml Output Urine Total 700 ml # Voids 7 PHYSICAL EXAM Alert. Oriented to time, place and person. PERRL. EOMI. CN: no focal findings. Muscle tone: normal. Muscle strength:5/5 DTR: 2+ Plantar reflex: flexor Gait: normal. Sensory exam: no abnormal findings. No cerebellar signs elicited. Review of Relevant I have reviewed the following items mackenzie (where applicable) has been applied. Labs Laboratory Tests Test 05/30/20 02:35 05/31/20 06:20 Sodium Level 146 mmol/L (136-145) 145 mmol/L (136-145) Potassium Level 3.4 mmol/L (3.5-5.1) 3.4 mmol/L (3.5-5.1) Chloride Level 109 mmol/L (98-107) 108 mmol/L (98-107) Carbon Dioxide Level 23 mmol/L (21-32) 27 mmol/L (21-32) Anion Gap 14 (6-14) 10 (6-14) Blood Urea Nitrogen 11 mg/dL (8-26) 12 mg/dL (8-26) Creatinine 1.3 mg/dL (0.7-1.3) 1.1 mg/dL (0.7-1.3) Estimated GFR (Cockcroft-Gault) 62.8 76.2 Glucose Level 84 mg/dL (70-99) 97 mg/dL (70-99) Calcium Level 8.1 mg/dL (8.5-10.1) 8.8 mg/dL (8.5-10.1) Creatine Kinase 66176 U/L (39-308) 8173 U/L (39-308) Laboratory Tests Test 05/31/20 06:20 Sodium Level 145 mmol/L (136-145) Potassium Level 3.4 mmol/L (3.5-5.1) Chloride Level 108 mmol/L (98-107) Carbon Dioxide Level 27 mmol/L (21-32) Anion Gap 10 (6-14) Blood Urea Nitrogen 12 mg/dL (8-26) Creatinine 1.1 mg/dL (0.7-1.3) Estimated GFR (Cockcroft-Gault) 76.2 Glucose Level 97 mg/dL (70-99) Calcium Level 8.8 mg/dL (8.5-10.1) Creatine Kinase 8173 U/L (39-308) Medications Current Medications Sodium Chloride 1,000 ml @ 1,000 mls/hr 1X ONCE IV Last administered on 05/27/20at 18:01; Start 05/27/20 at 17:45; Stop 05/27/20 at 18:44; Status DC Lorazepam (Ativan Inj) 2 mg STK-MED ONCE .ROUTE ; Start 05/27/20 at 18:25; Stop 05/27/20 at 18:25; Status DC Lorazepam (Ativan Inj) 2 mg 1X ONCE IVP Last administered on 05/27/20 18:31; Start 05/27/20 at 18:30; Stop 05/27/20 at 18:31; Status DC Levetiracetam 1000 mg/Dextrose 110 ml @ 440 mls/hr 1X ONCE IV Last administered on 05/27/20at 18:46; Start 05/27/20 at 18:30; Stop 05/27/20 at 18:44; Status DC Sodium Chloride 1,000 ml @ 1,000 mls/hr 1X ONCE IV Last administered on 05/27/20at 18:47; Start 05/27/20 at 18:30; Stop 05/27/20 at 19:29; Status DC Sodium Chloride 1,000 ml @ 100 mls/hr Q10H IV Last administered on 05/28/20 09:07; Start 05/27/20 at 18:46; Stop 05/28/20 at 18:45; Status DC Lorazepam (Ativan Inj) 2 mg PRN Q10MIN PRN IVP ANXIETY / AGITATION Last administered on 05/30/20 18:27; Start 05/27/20 at 19:00 Levetiracetam (Keppra) 500 mg BID PO Last administered on 05/31/20 09:30; Start 05/28/20 at 09:00 Acetaminophen (Tylenol) 650 mg PRN Q6HRS PRN PO MILD PAIN / TEMP > 100.3'F Last administered on 05/31/20 09:29; Start 05/28/20 at 19:45 Sodium Chloride 1,000 ml @ 100 mls/hr Q10H IV Last administered on 05/31/20 04:10; Start 05/28/20 at 19:45 Lamotrigine (LaMICtal) 25 mg DAILY PO Last administered on 05/31/20 09:30; Start 05/29/20 at 12:30 Acetaminophen/ Butalbital/ Caffeine (Fioricet) 1 tab PRN Q6HRS PRN PO MIGRAINE HEADACHE Last administered on 05/30/20 18:18; Start 05/30/20 at 09:00 Famotidine (Pepcid Vial) 20 mg PRN Q12HRS PRN IVP GI UPSET Last administered on 05/30/20at 18:59; Start 05/30/20 at 18:45 Active Scripts Active Keppra (Levetiracetam) 750 Mg Tablet 750 Mg PO BID 30 Days Acetaminophen 500 Mg Tablet 500 Mg PO PRN Q6HRS PRN 14 Days Pepcid (Famotidine) 20 Mg Tablet 20 Mg PO BID Vitals/I & O Vital Sign - Last 24 Hours 05/30/20 05/30/20 05/30/20 05/30/20 15:00 19:41 19:56 23:08 Temp 98.1 97.9 97.8 98.1 97.9 97.8 Pulse 60 60 52 Resp 20 20 16 B/P (MAP) 154/97 (116) 164/99 (120) 142/85 (104) Pulse Ox 96 98 97 O2 Delivery Room Air Room Air Room Air Room Air 05/31/20 05/31/20 05/31/20 05/31/20 03:27 07:00 08:00 10:36 Temp 98.0 98.2 98.1 98.0 98.2 98.1 Pulse 66 82 77 Resp 16 16 16 B/P (MAP) 153/88 (109) 130/83 (99) 132/81 (98) Pulse Ox 96 98 95 O2 Delivery Room Air Room Air Room Air Room Air Intake and Output 05/30/20 05/30/20 05/31/20 15:00 23:00 07:00 Intake Total 480 ml 0 ml 1000 ml Output Total 700 ml Balance 480 ml 0 ml 300 ml Justicifation of Admission Dx: Justifications for Admission: Justification of Admission Dx: N/A JOSE LOCK MD May 31, 2020 12:39
--- NOTE | 2020-05-31 14:32 | PDOC3 ---
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 EEG 05/28 shows left temporal epileptic activity and an electrographic seizure Ictal headaches History of left frontal cavernous hemangioma Left frontal chronic small vessel disease versus chronic demyelination. Acute on chronic renal failure resolved FAVIAN - suspect 2/2 Rhabdomyolyis Brief Hospital Course Allergies Allergies Coded Allergies Type Severity Reaction Last Updated Verified No Known Drug Allergies 08/11/16 No Vital Signs Vital Signs Date Time Temp Pulse Resp B/P (MAP) Pulse Ox O2 Delivery O2 Flow Rate FiO2 05/31/20 10:36 98.1 77 16 132/81 (98) 95 Room Air 98.1 Lab Results Laboratory Tests Test 05/30/20 02:35 05/31/20 06:20 Sodium Level 146 mmol/L (136-145) 145 mmol/L (136-145) Potassium Level 3.4 mmol/L (3.5-5.1) 3.4 mmol/L (3.5-5.1) Chloride Level 109 mmol/L (98-107) 108 mmol/L (98-107) Carbon Dioxide Level 23 mmol/L (21-32) 27 mmol/L (21-32) Anion Gap 14 (6-14) 10 (6-14) Blood Urea Nitrogen 11 mg/dL (8-26) 12 mg/dL (8-26) Creatinine 1.3 mg/dL (0.7-1.3) 1.1 mg/dL (0.7-1.3) Estimated GFR (Cockcroft-Gault) 62.8 76.2 Glucose Level 84 mg/dL (70-99) 97 mg/dL (70-99) Calcium Level 8.1 mg/dL (8.5-10.1) 8.8 mg/dL (8.5-10.1) Creatine Kinase 25253 U/L (39-308) 8173 U/L (39-308) Laboratory Tests Test 05/31/20 06:20 Sodium Level 145 mmol/L (136-145) Potassium Level 3.4 mmol/L (3.5-5.1) Chloride Level 108 mmol/L (98-107) Carbon Dioxide Level 27 mmol/L (21-32) Anion Gap 10 (6-14) Blood Urea Nitrogen 12 mg/dL (8-26) Creatinine 1.1 mg/dL (0.7-1.3) Estimated GFR (Cockcroft-Gault) 76.2 Glucose Level 97 mg/dL (70-99) Calcium Level 8.8 mg/dL (8.5-10.1) Creatine Kinase 8173 U/L (39-308) Brief Hospital Course HPI: This is a middle-aged [place] gentleman who has known seizures We just discharged him recently after being treated for seizure Once again he feels like he is having seizures The ER doctor witnessed seizures while he was examined the patient I discussed the case with ER physician regard to meet the patient and consult neurology and adjust his Keppra 05/31/2020 No acute events reported overnight, case discussed with nursing staff patient in no acute distress no complaints during my visit 05/30/2020 says he feels "tension" all over says he is sill having trouble with his head history with the help of translation line. 05/29/2020 Patient was seen and examined Patient was in NAD Discussed with RN Chart reviewed 05/28/2020 Patient seen and examined Discussed with sister Discussed with case management and RN Chart reviewed He did a EEG this morning and it is positive for seizures over the temporal region General: No acute distress, Other (Seems post ictal his sister is trying to feed him rice he is confused) Heart: Regular rate Lungs: Clear Abdomen: Normal bowel sounds Extremities: No clubbing Skin: No rashes Assessment Assessment MRI of the brain IMPRESSION: 1. Stable 8 mm oval T2 hypointense lesion with susceptibility effect likely due to hemosiderin deposition within the left frontal lobe near the vertex, the appearance of which favors a cavernoma. There is stable surrounding signal abnormality and decreased size of the surrounding gyri likely due to encephalomalacia from prior hemorrhage. There is no evidence of acute hemorrhage. 2. Stable tiny focus of signal change within the posterior left frontal lobe near the vertex. Given the age of the patient, the differential includes a focus of signal change due to chronic small vessel disease as well as a small chronic infarct or chronic demyelination. 3. Suggestion of slight relative decreased left hippocampal size. This is not clearly within limits to suggest mesial temporal sclerosis. Correlate with EEG localization findings in this patient with a history of seizures. ELECTROENCEPHALOGRAM REPORT EEG NUMBER: [id number]. OBJECTIVE: The patient is a 35-year-old male with a left central epileptic focus on prior studies, who is having increased numbers of seizures. DESCRIPTION: This is a digital study. Electrodes are placed according to international 10-20 system. Bipolar and referential montages are available. Activation procedures typically include hyperventilation and intermittent photic stimulation. INTERPRETATION: The waking background consists of 8-9 Hz, 50-100 microvolt activity. There are frequent sharp waves over electrode T5 and there is an electrographic seizure during which the patient was observed to have mildly altered consciousness, but no convulsive activity arising over the left temporal region. Sleep is not achieved. Hyperventilation and intermittent photic stimulation are noncontributory. IMPRESSION: This electroencephalogram with the patient awake and asleep is abnormal because of an epileptic disturbance of cerebral activity over the left temporal region. An electrographic seizure was recorded. This is consistent of course with epilepsy arising from the left temporal region. Thank you for letting us help with the patient's care. JOSE LOCK MD DR: NITIN/kriss JOB#: [id number] / [id number] Discharge Information Condition at Discharge: Improved Follow Up: Weeks Disposition/Orders: D/C to Home Scheduled Famotidine (Pepcid) 20 Mg Tablet, 20 MG PO BID, #30 Prescribed by: CINTHYA MCKEON on 08/11/16 3097 Last Action: Reviewed on 05/27/202316 by KODAK COVINGTON Levetiracetam (Keppra) 750 Mg Tablet, 750 MG PO BID for seizure for 30 Days, #60 Ref 6 Prescribed by: IBRAHIMA SMITH on 05/26/20 1204 Last Action: Reviewed on 05/27/202316 by KODAK COVINGTON Scheduled PRN Acetaminophen (Acetaminophen) 500 Mg Tablet, 500 MG PO PRN Q6HRS PRN for HEADACHE / TEMP for 14 Days, #30 Prescribed by: KODAK BLANK MD on 05/05/19 1244 Last Action: Reviewed on 05/27/20 2317 by KODAK COVINGTON Discontinued Medications Levetiracetam (Keppra) 250 Mg Tablet, 750 MG PO BID for seizures for 30 Days, #180 Prescribed by: KODAK BLANK MD on 05/05/19 1244 Justicifation of Admission Dx: Justifications for Admission: Justification of Admission Dx: N/A MAYRA DANIELS MD May 31, 2020 14:32
[2020-05-31 14:35] VITALS: BP 151/75
[2020-05-31] MEDS ORDERED: LAMO25TA5 PO (14:37)
--- NOTE | 2020-05-31 15:26 | NUR ---
Discharge Note: [facility] Discharge instructions and discharge home medications reviewed with Patient and a copy given. All questions have been answered and understanding verbalized. The following instructions and handouts were given: Luisa Fay, Epilepsy Patient discharged to home with family via wheelchair. Instructions given via educational interpreter phone with patient stating back that they understood and would take the antiepileptics on schedule and would refrain from driving.
[2020-05-31] MEDS ORDERED: levETIRAcetam 500 MG TABLET PO SCH (21:00)
== END 2020-05-31 15:27 | disposition home or self-care (01) | DRG 101 ==
LOC: ER 17:15 → 2 SOUTH 21:30
PROVIDERS: ADMIT Internal Medicine; ATTEND Internal Medicine
DX: G40.311 Generalized idiopathic epilepsy and epileptic syndromes, intractable, with status epilepticus (principal); E87.2 Acidosis; I47.1 Supraventricular tachycardia; N17.9 Acute kidney failure, unspecified; N18.9 Chronic kidney disease, unspecified; Z79.899 Other long term (current) drug therapy
CPT/HCPCS: 36415; 70450; 70551; 71045; 80048; 80053; 80069; 80177; 80307; 81001; 82550; 82570; 83615; 83735; 84300; 84484; 84550; 85007; 85025; 89050; 93005; 95816; 96361; 96365; 96372; 96375; 99291; G0378; G0379; G0480; J1650; J1885; J1953; J2060; J3490; J7030; J7060; J7120

== ENCOUNTER 2020-06-20 06:21 | Inpatient (IN) | payer BC ==
[~2020-06-20] VITALS: Ht 162.6 cm; Wt 68.2 kg
[~2020-06-20 06:21] MED LIST changes: +LAMO25TA5 PO
[2020-06-20] MEDS ORDERED: IV NORMAL SALINE 1000ML BAG 1,000 ML IV SCH (06:31)
--- NOTE | 2020-06-20 06:36 | PHYS DOC ---
Past Medical History Past Medical History: Seizure, Other Additional Past Medical Histor: BRAIN BLEED 04/29 Past Surgical History: No Surgical History Smoking Status: Never Smoker Alcohol Use: None Drug Use: None General Adult EDM: Chief Complaint: ABDOMINAL PAIN HPI: HPI: Patient is a 35 year old male with a history of seizure disorder presents with a 1 day history of diffuse abdominal pain. Pain is moderate in intensity and becomes more severe with palpation. Patient denies any nausea vomiting or radiation of pain. Patient denies pain anywhere else. Pain is similar to past episodes. Patient denies any fever or diarrhea. Review of Systems: Review of Systems: Constitutional: Denies fever or chills. [] Eyes: Denies change in visual acuity. [] HENT: Denies nasal congestion or sore throat. [] Respiratory: Denies cough or shortness of breath. [] Cardiovascular: Denies chest pain or edema. [] GI: Complains of abdominal pain but no nausea, vomiting, bloody stools or diarrhea. [] : Denies dysuria. [] Musculoskeletal: Denies back pain or joint pain. [] Integument: Denies rash. [] Neurologic: Denies headache, focal weakness or sensory changes. [] Endocrine: Denies polyuria or polydipsia. [] Lymphatic: Denies swollen glands. [] Psychiatric: Denies depression or anxiety. [] Heart Score: Risk Factors: Risk Factors: DM, Current or recent (<one month) smoker, HTN, HLP, family history of CAD, obesity. Risk Scores: Score 0 - 3: 2.5% MACE over next 6 weeks - Discharge Home Score 4 - 6: 20.3% MACE over next 6 weeks - Admit for Clinical Observation Score 7 - 10: 72.7% MACE over next 6 weeks - Early Invasive Strategies Current Medications: Current Medications Medications (Trade) Dose Ordered Sig/Cyndi Start Time Stop Time Status Last Admin Dose Admin Famotidine (Pepcid Vial) 20 mg 1X ONCE 06/20/20 06:45 06/20/20 06:46 UNV Ondansetron HCl (Zofran) 4 mg 1X ONCE 06/20/20 06:45 06/20/20 06:46 UNV Sodium Chloride 1,000 ml @ 1,000 mls/hr Q1H 06/20/20 06:31 06/20/20 07:30 UNV Allergies: Allergies: Allergies Coded Allergies Type Severity Reaction Last Updated Verified No Known Drug Allergies 08/11/16 No Physical Exam: PE: Constitutional: Well developed, well nourished, no acute distress, non-toxic appearance. [] HENT: Normocephalic, atraumatic, bilateral external ears normal, no trismus, nose normal. [] Eyes: PERRLA, EOMI, conjunctiva normal, no discharge. [] Neck: Normal range of motion, no tenderness, supple, no stridor. [] Cardiovascular:Heart rate regular rhythm, peripheral pulses intact, cap refill brisk Lungs & Thorax: Bilateral breath sounds clear, no respiratory distress Abdomen: Bowel sounds normal, soft, diffuse tenderness without guarding or rebound, no masses, no pulsatile masses. [] Skin: Warm, dry, no erythema, no rash. [] Back: No tenderness, no CVA tenderness. [] Extremities: No tenderness, no cyanosis, no clubbing, ROM intact, no edema. [] Neurologic: Alert and oriented X 3, normal motor function, normal sensory function, no focal deficits noted. [] Psychologic: Affect normal, judgement normal, mood normal. [] Current Patient Data: Labs: Laboratory Tests Test 06/20/20 06:25 06/20/20 06:50 Urine Collection Type Unknown Urine Color Yellow Urine Clarity Clear Urine pH 5.5 Urine Specific [place] 1.015 Urine Protein Negative mg/dL Urine Glucose (UA) Negative mg/dL Urine Ketones (Stick) Negative mg/dL Urine Blood Negative Urine Nitrite Negative Urine Bilirubin Negative Urine Urobilinogen Dipstick 0.2 mg/dL Urine Leukocyte Esterase Negative Urine RBC 0 /HPF Urine WBC 0 /HPF Urine Squamous Epithelial Cells Few /LPF Urine Bacteria 0 /HPF White Blood Count 11.8 x10^3/uL Red Blood Count 4.54 x10^6/uL Hemoglobin 13.3 g/dL Hematocrit 39.2 % Mean Corpuscular Volume 86 fL Mean Corpuscular Hemoglobin 29 pg Mean Corpuscular Hemoglobin Concent 34 g/dL Red Cell Distribution Width 13.3 % Platelet Count 179 x10^3/uL Neutrophils (%) (Auto) 76 % Lymphocytes (%) (Auto) 14 % Monocytes (%) (Auto) 8 % Eosinophils (%) (Auto) 1 % Basophils (%) (Auto) 0 % Neutrophils # (Auto) 9.0 x10^3/uL Lymphocytes # (Auto) 1.7 x10^3/uL Monocytes # (Auto) 0.9 x10^3/uL Eosinophils # (Auto) 0.1 x10^3/uL Basophils # (Auto) 0.0 x10^3/uL Sodium Level 139 mmol/L Potassium Level 3.5 mmol/L Chloride Level 102 mmol/L Carbon Dioxide Level 26 mmol/L Anion Gap 11 Blood Urea Nitrogen 20 mg/dL Creatinine 1.0 mg/dL Estimated GFR (Cockcroft-Gault) 85.0 BUN/Creatinine Ratio 20 Glucose Level 103 mg/dL Calcium Level 8.9 mg/dL Total Bilirubin 0.2 mg/dL Aspartate Amino Transf (AST/SGOT) 16 U/L Alanine Aminotransferase (ALT/SGPT) 25 U/L Alkaline Phosphatase 77 U/L Total Protein 7.1 g/dL Albumin 3.7 g/dL Albumin/Globulin Ratio 1.1 Lipase 145 U/L Current Medications Medications (Trade) Dose Ordered Sig/Cyndi Route PRN Reason Start Time Stop Time Status Last Admin Dose Admin Sodium Chloride 1,000 ml @ 1,000 mls/hr Q1H IV 06/20/20 06:31 06/20/20 07:30 DC 06/20/20 06:53 Ondansetron HCl (Zofran) 4 mg 1X ONCE IVP 06/20/20 06:45 06/20/20 06:46 DC 06/20/20 06:52 Famotidine (Pepcid Vial) 20 mg 1X ONCE IVP 06/20/20 06:45 06/20/20 06:46 DC 06/20/20 06:52 Multi-Ingredient Mouthwash/Gargle (Gi Cocktail) 20 ml 1X ONCE SWSW 06/20/20 06:45 06/20/20 06:46 DC 06/20/20 06:52 Iohexol (Omnipaque 300 Mg/ml) 75 ml 1X ONCE IV 06/20/20 07:15 06/20/20 07:16 DC 06/20/20 07:28 Info (CONTRAST GIVEN -- Rx MONITORING) 1 each PRN DAILY PRN MC SEE COMMENTS 06/20/20 07:30 06/22/20 07:29 Vital Signs: Vital Signs Date Time Temp Pulse Resp B/P (MAP) Pulse Ox O2 Delivery O2 Flow Rate FiO2 06/20/20 06:30 97.7 65 22 145/111 (122) 98 Room Air 97.7 EKG: EKG: [] Radiology/Procedures: Radiology/Procedures: [][facility] [address] [place] [address] IMAGING REPORT Signed PATIENT: CONCHIS WANG ACCOUNT: [id number] : 1985 LOCATION: ER AGE: 35 SEX: M EXAM STATUS: REG ER ORD. PHYSICIAN: OZZIE BARRAZA MD REASON: abd pain PROCEDURE: CT ABD PELV W/ IV CONTRST ONLY PQRS Compliance Statement: One or more of the following individualized dose reduction techniques were utilized for this examination: 1. Automated exposure control 2. Adjustment of the mA and/or kV according to patient size 3. Use of iterative reconstruction technique CT abdomen/pelvis with contrast 06/20/2020 6:31 AM INDICATION: Abdominal pain COMPARISON: CT abdomen/pelvis 02/06/2019 TECHNIQUE: Multiple axial CT images of the abdomen and pelvis were obtained after the intravenous administration of 75 mL Omnipaque 300. Coronal and sagittal reformats are provided. FINDINGS: There is a 5 mm solid noncalcified pulmonary nodule in the left lower lobe, out of the [id number] on the prior examination. No pleural effusions. Heart size is within normal limits. Liver, spleen, bilateral adrenal glands, pancreas and gallbladder are normal in appearance. Abdominal aorta is normal in course and caliber. There are no pathologically enlarged lymph nodes within the abdomen and pelvis. There is no free fluid or free intraperitoneal air. Kidneys are normal in appearance. No hydronephrosis or suspicious renal mass. Prostate and seminal vesicles are normal. Urinary bladder is within normal limits given degree of distention. No obstruction or inflammation. Inflammatory changes noted in the right lower quadrant. No suspicious osseous abnormality is identified. IMPRESSION: Mild inflammation is noted in the right lower quadrant, although the appendix is not visualized in entirety. Further characterization with CT pelvis with oral contrast could be of benefit. Electronically signed by: Rita Tomlinson MD (06/20/2020 7:46 AM) [id number] DICTATED and SIGNED BY: RITA TOMLINSON MD DATE: 06/20/20 0746 [facility] [address] [place], [place] [id number] IMAGING REPORT Signed PATIENT: CONCHIS WANG ACCOUNT: [id number] : 1985 LOCATION: ER AGE: 35 SEX: M EXAM STATUS: REG ER ORD. PHYSICIAN: OZZIE BARRAZA MD REASON: rlq inflamation, needs oral contrast to eval appendix, 30ML OMNI 240 PO PROCEDURE: CT PELVIS WO CONTRAST EXAM: CT Pelvis without IV contrast INDICATION: Reason: rlq inflamation, needs oral contrast to eval appendix, 30ML OMNI 240 PO / Spl. Instructions: okay to do pelvis only, specifically looking for appy / History: TECHNIQUE: Multi-detector row images were acquired from the iliac crest through the lesser trochanters without the use of IV contrast. Sagittal and coronal images were acquired from the transaxial data. All CT scans performed at this facility utilize dose optimization techniques as appropriate to the exam, including the following: Automated exposure control and adjustment of the mA and/or KV according to patient size (this includes techniques or standardized protocols for targeted exams where dose is indication/reason for exam). ORAL CONTRAST: Administered COMPARISON: Abdomen pelvis CT with IV contrast of 06/20/2020 (7:25 AM) FINDINGS: The absence of IV contrast limits evaluation of soft tissue pathology. OSSEOUS:No evidence of fracture or bone destruction. BLADDER: The urinary bladder is less distended on this examination and shows a slightly thicker wall. No perivesical soft tissue stranding. REPRODUCTIVE ORGANS: Unremarkable BOWEL: With exception of the appendix, visualized bowel is unremarkable. The appendix fails to fill with enteric contrast (best visualized coursing anterior to the luminal opacified right ureter on image 14 of axial series 2). MESENTERY/PERITONEUM/RETROPERITONEUM: Unremarkable VASCULAR: Unremarkable LYMPH NODES: No adenopathy SOFT TISSUES: Unremarkable IMPRESSION: The mild inflammatory changes in the right lower quadrant abdomen in association with oral contrast evidence of an obstructed appendiceal orifice is suspicious for early acute appendicitis. No perforation or abscess. FOR INTERNAL CODING PURPOSES Critical result: Findings discussed with OZZIE BARRAZA at 06/20/2020 9:58 AM. RESULT CODE: (C) Electronically signed by: Oral Fan MD (06/20/2020 9:59 AM) [id number] DICTATED and SIGNED BY: ORAL FAN MD DATE: 06/20/20 0959 Course & Med Decision Making: Course & Med Decision Making Pertinent Labs and Imaging studies reviewed. (See chart for details) [] 35-year-old male presents with abdominal pain. Initial CT shows some inflammation in the right lower quadrant but appendix not visualized. Therefore oral contrast CT was ordered. Patient was reassessed at 7:54 AM and still has abdominal discomfort although is improved. Pain seems to be more localized in the right lower quadrant. Repeat scan is concerning for acute appendicitis. Patient will get IV antibiotics will be admitted to Dr. MEANS, Dr. Hinds has been consulted. Dragon Disclaimer: Dragon Disclaimer: This electronic medical record was generated, in whole or in part, using a voice recognition dictation system. Departure Departure Impression: Primary Impression: Acute appendicitis Additional Impression: Right lower quadrant abdominal pain Disposition: ADMITTED INPATIENT Admitting Physician: LIBAN (MIGUELANGEL) Condition: STABLE Referrals: NO PCP (PCP) Justicifation of Admission Dx: Justifications for Admission: Justification of Admission Dx: Yes Comments: ACUTE OZZIE TURNER MD Jun 20, 2020 06:36
[2020-06-20] MEDS ORDERED: LIDO:MAALOX 1:1 20 ML SINGLE DOSE. SWSW ONE (06:45)
[2020-06-20] MEDS ORDERED: ONDANSETRON PF 4 MG/2 ML VIAL. IVP ONE (06:45)
[2020-06-20] MEDS ORDERED: FAMOTIDINE 20 MG/2 ML VIAL IVP ONE (06:45)
[2020-06-20 07:03] LABS: BASO % 0 % (0-3); EOS # 0.1 x10^3/uL (0.0-0.7); EOS % 1 % (0-3); HEMATOCRIT 39.2 % (39.0-53.0); HEMOGLOBIN 13.3 g/dL (13.0-17.5); LYMPH # 1.7 x10^3/uL (1.0-4.8); LYMPH % 14 % (24-48); MEAN CORPUSCULAR HEMOGLOBIN 29 pg (25-35); MEAN CORPUSCULAR HGB CONC 34 g/dL (31-37); MEAN CORPUSCULAR VOLUME 86 fL (79-100); MONO # 0.9 x10^3/uL (0.0-1.1); MONO % 8 % (0-9); NEUT % 76 % (31-73); PLATELET COUNT 179 x10^3/uL (140-400); RED BLOOD COUNT 4.54 x10^6/uL (4.30-5.70); RED CELL DISTRIBUTION WIDTH 13.3 % (11.5-14.5); WHITE BLOOD COUNT 11.8 x10^3/uL (4.0-11.0)
[2020-06-20 07:07] LABS: BILIRUBIN,URINE NEGATIVE (NEG); CLARITY,URINE CLEAR; COLOR,URINE YELLOW; NITRITE,URINE NEGATIVE (NEG); PH,URINE 5.5 (<5.0-8.0); PROTEIN,URINE NEGATIVE (NEG-TRACE); UROBILINOGEN,URINE 0.2 mg/dL (0.2 mg/dL)
[2020-06-20 07:08] LABS: CALCIUM 8.9 mg/dL (8.5-10.1); POTASSIUM 3.5 mmol/L (3.5-5.1)
[2020-06-20 07:14] LABS: ALBUMIN 3.7 g/dL (3.4-5.0); ALBUMIN/GLOBULIN RATIO 1.1 (1.0-1.7); TOTAL BILIRUBIN 0.2 mg/dL (0.2-1.0); TOTAL PROTEIN 7.1 g/dL (6.4-8.2)
[2020-06-20] MEDS ORDERED: IOHEXOL 300 MG/ML 100ML VIAL. IV ONE (07:15)
[2020-06-20 07:17] LABS: BACTERIA,URINE 0 /HPF (0-FEW); RBC,URINE 0 /HPF (0-2); SQUAMOUS EPITHELIAL CELL,UR FEW /LPF; WBC,URINE 0 /HPF (0-4)
[2020-06-20] MEDS ORDERED: CONTRAST GIVEN. MC PRN (07:30)
--- NOTE | 2020-06-20 07:49 | RAD ---
PQRS Compliance Statement: One or more of the following individualized dose reduction techniques were utilized for this examination: 1. Automated exposure control 2. Adjustment of the mA and/or kV according to patient size 3. Use of iterative reconstruction technique CT abdomen/pelvis with contrast 06/20/2020 6:31 AM INDICATION: Abdominal pain COMPARISON: CT abdomen/pelvis 02/06/2019 TECHNIQUE: Multiple axial CT images of the abdomen and pelvis were obtained after the intravenous administration of 75 mL Omnipaque 300. Coronal and sagittal reformats are provided. FINDINGS: There is a 5 mm solid noncalcified pulmonary nodule in the left lower lobe, out of the [id number] on the prior examination. No pleural effusions. Heart size is within normal limits. Liver, spleen, bilateral adrenal glands, pancreas and gallbladder are normal in appearance. Abdominal aorta is normal in course and caliber. There are no pathologically enlarged lymph nodes within the abdomen and pelvis. There is no free fluid or free intraperitoneal air. Kidneys are normal in appearance. No hydronephrosis or suspicious renal mass. Prostate and seminal vesicles are normal. Urinary bladder is within normal limits given degree of distention. No obstruction or inflammation. Inflammatory changes noted in the right lower quadrant. No suspicious osseous abnormality is identified. IMPRESSION: Mild inflammation is noted in the right lower quadrant, although the appendix is not visualized in entirety. Further characterization with CT pelvis with oral contrast could be of benefit. Electronically signed by: Lucia Starks MD (06/20/2020 7:46 AM) [id number]
[2020-06-20] MEDS ORDERED: IOHEXOL 240 MG/ML 50ML VIAL. PO ONE (09:00)
[2020-06-20] MEDS ORDERED: PIPERACILLIN/TAZOBACTAM 3.375 GM in IV NORMAL SALINE 50ML 50 ML IV ONE (10:00)
--- NOTE | 2020-06-20 10:02 | RAD ---
EXAM: CT Pelvis without IV contrast INDICATION: Reason: rlq inflamation, needs oral contrast to eval appendix, 30ML OMNI 240 PO / Spl. Instructions: okay to do pelvis only, specifically looking for appy / History: TECHNIQUE: Multi-detector row images were acquired from the iliac crest through the lesser trochanters without the use of IV contrast. Sagittal and coronal images were acquired from the transaxial data. All CT scans performed at this facility utilize dose optimization techniques as appropriate to the exam, including the following: Automated exposure control and adjustment of the mA and/or KV according to patient size (this includes techniques or standardized protocols for targeted exams where dose is indication/reason for exam). ORAL CONTRAST: Administered COMPARISON: Abdomen pelvis CT with IV contrast of 06/20/2020 (7:25 AM) FINDINGS: The absence of IV contrast limits evaluation of soft tissue pathology. OSSEOUS:No evidence of fracture or bone destruction. BLADDER: The urinary bladder is less distended on this examination and shows a slightly thicker wall. No perivesical soft tissue stranding. REPRODUCTIVE ORGANS: Unremarkable BOWEL: With exception of the appendix, visualized bowel is unremarkable. The appendix fails to fill with enteric contrast (best visualized coursing anterior to the luminal opacified right ureter on image 14 of axial series 2). MESENTERY/PERITONEUM/RETROPERITONEUM: Unremarkable VASCULAR: Unremarkable LYMPH NODES: No adenopathy SOFT TISSUES: Unremarkable IMPRESSION: The mild inflammatory changes in the right lower quadrant abdomen in association with oral contrast evidence of an obstructed appendiceal orifice is suspicious for early acute appendicitis. No perforation or abscess. FOR INTERNAL CODING PURPOSES Critical result: Findings discussed with OZZIE BARRAZA at 06/20/2020 9:58 AM. RESULT CODE: (C) Electronically signed by: Magan Sheridan MD (06/20/2020 9:59 AM) [id number]
[2020-06-20] MEDS ORDERED: MORPHINE SULFATE 2 MG/ML VIAL. IV PRN (10:15)
[2020-06-20] MEDS ORDERED: ONDANSETRON PF 4 MG/2 ML VIAL. IV PRN (10:15)
[2020-06-20 11:30] VITALS: BP 120/71
--- NOTE | 2020-06-20 11:30 | NUR ---
Arrived to unit by w/c from ER. Alert and oriented x's 4. No c/o at this time. Assessment completed. Used paleobotanist phone to get information. Side rails up x's 2 with call light in reach. NPO at this time. Plans for surgery in am. Cont. monitor.
--- NOTE | 2020-06-20 12:16 | PDOC2 ---
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 Acute onset RLQ pain started at 3 am. He has had similar pain in past, ER visits noted Nausea, no emesis. normal stools Medication has helped, no aggravating factors Past Medical History Cardiovascular: No pertinent hx Pulmonary: No pertinent hx CENTRAL NERVOUS SYSTEM: Seizure, Other GI: No pertinent hx Heme/Onc: No pertinent hx Hepatobiliary: No pertinent hx Psych: No pertinent hx Rheumatologic: No pertinent hx Infectious disease: No pertinent hx Renal/: No pertinent hx Endocrine: No pertinent hx Past Surgical History Past Surgical History: No pertinent history Family History Family History: No Significant Social History ALCOHOL: none Drugs: None Current Problem List Problem List Problems Medical Problems: (1) Acute appendicitis Status: Acute (2) Right lower quadrant abdominal pain Status: Acute Current Medications Current Medications Current Medications Sodium Chloride 1,000 ml @ 1,000 mls/hr Q1H IV Last administered on 06/20/20at 06:53; Start 06/20/20 at 06:31; Stop 06/20/20 at 07:30; Status DC Ondansetron HCl (Zofran) 4 mg 1X ONCE IVP Last administered on 06/20/20at 06:52; Start 06/20/20 at 06:45; Stop 06/20/20 at 06:46; Status DC Famotidine (Pepcid Vial) 20 mg 1X ONCE IVP Last administered on 06/20/20at 06:52; Start 06/20/20 at 06:45; Stop 06/20/20 at 06:46; Status DC Multi-Ingredient Mouthwash/Gargle (Gi Cocktail) 20 ml 1X ONCE SWSW Last ad ministered on 06/20/20at 06:52; Start 06/20/20 at 06:45; Stop 06/20/20 at 06:46; Status DC Iohexol (Omnipaque 300 Mg/ml) 75 ml 1X ONCE IV Last administered on 06/20/20at 07:28; Start 06/20/20 at 07:15; Stop 06/20/20 at 07:16; Status DC Info (CONTRAST GIVEN -- Rx MONITORING) 1 each PRN DAILY PRN MC SEE COMMENTS; Start 06/20/20 at 07:30; Stop 06/22/20 at 07:29 Iohexol (Omnipaque 240 Mg/ml) 30 ml 1X ONCE PO Last administered on 06/20/20at 09:17; Start 06/20/20 at 09:00; Stop 06/20/20 at 09:01; Status DC Piperacillin Sod/ Tazobactam Sod 3.375 gm/Sodium Chloride 50 ml @ 100 mls/hr 1X ONCE IV Last administered on 06/20/20at 10:38; Start 06/20/20 at 10:00; Stop 06/20/20 at 10:29; Status DC Ondansetron HCl (Zofran) 4 mg PRN Q8HRS PRN IV NAUSEA/VOMITING; Start 06/20/20 at 10:15; Stop 06/21/20 at 10:14 Morphine Sulfate (Morphine Sulfate) 2 mg PRN Q2HR PRN IV PAIN Last administered on 06/20/20at 10:49; Start 06/20/20 at 10:15; Stop 06/21/20 at 10:14 Active Scripts Active Lamictal (Lamotrigine) 25 Mg Tablet 25 Mg PO DAILY 30 Days 25 mg daily for 1 week (06/01-) 25 mg twice a day for 2 weeks (06/08-06/21) 25 mg 2 tabs po twice daily for 2 weeks (06/22-) Then 100 mg twice daily (07/06 and after) Keppra (Levetiracetam) 750 Mg Tablet 750 Mg PO BID 30 Days Acetaminophen 500 Mg Tablet 500 Mg PO PRN Q6HRS PRN 14 Days Pepcid (Famotidine) 20 Mg Tablet 20 Mg PO BID Allergies Allergies: Coded Allergies: No Known Drug Allergies (Unverified , 08/11/16) ROS General: No: Chills, Other (fevers) PSYCHOLOGICAL ROS: No: Anxiety, Depression Eyes: No Blurry vision HEENT: No: Heacaches Hematological and Lymphatic: No: Bleeding Problems, Blood Clots Respiratory: No: Cough, Shortness of breath Cardiovascular: No Chest Pain, No Palpitations Gastrointestinal: Yes Other (see hpi) Genitourinary: No Dysuria, No Hematuria Musculoskeletal: No Joint Pain, No Muscle Pain Neurological: No Impaired Coord/balance, No Numbness/Tingling Skin: No Pruritus, No Rash Physical Exam General: Alert, Oriented X3, Cooperative, No acute distress HEENT: Atraumatic, PERRLA Lungs: Clear to auscultation, Normal air movement Heart: Regular rate, Normal S1, Normal S2 Abdomen: Soft, Other (RLQ ttp ) Extremities: No clubbing, No cyanosis Skin: No rashes, No breakdown Neuro: Normal gait, Normal speech Psych/Mental Status: Mental status NL, Mood NL MUSCULOSKELETAL: No deformity, No swelling Vitals VITALS Vital Signs Date Time Temp Pulse Resp B/P (MAP) Pulse Ox O2 Delivery O2 Flow Rate FiO2 06/20/20 10:51 84 124/68 (86) 97 Room Air 06/20/20 10:49 20 06/20/20 06:30 97.7 97.7 Labs Labs Laboratory Tests Test 06/20/20 06:25 06/20/20 06:50 Urine Collection Type Unknown Urine Color Yellow Urine Clarity Clear Urine pH 5.5 (<5.0-8.0) Urine Specific [place] 1.015 (1.000-1.030) Urine Protein Negative mg/dL (NEG-TRACE) Urine Glucose (UA) Negative mg/dL (NEG) Urine Ketones (Stick) Negative mg/dL (NEG) Urine Blood Negative (NEG) Urine Nitrite Negative (NEG) Urine Bilirubin Negative (NEG) Urine Urobilinogen Dipstick 0.2 mg/dL (0.2 mg/dL) Urine Leukocyte Esterase Negative (NEG) Urine RBC 0 /HPF (0-2) Urine WBC 0 /HPF (0-4) Urine Squamous Epithelial Cells Few /LPF Urine Bacteria 0 /HPF (0-FEW) White Blood Count 11.8 x10^3/uL (4.0-11.0) Red Blood Count 4.54 x10^6/uL (4.30-5.70) Hemoglobin 13.3 g/dL (13.0-17.5) Hematocrit 39.2 % (39.0-53.0) Mean Corpuscular Volume 86 fL (79-100) Mean Corpuscular Hemoglobin 29 pg (25-35) Mean Corpuscular Hemoglobin Concent 34 g/dL (31-37) Red Cell Distribution Width 13.3 % (11.5-14.5) Platelet Count 179 x10^3/uL (140-400) Neutrophils (%) (Auto) 76 % (31-73) Lymphocytes (%) (Auto) 14 % (24-48) Monocytes (%) (Auto) 8 % (0-9) Eosinophils (%) (Auto) 1 % (0-3) Basophils (%) (Auto) 0 % (0-3) Neutrophils # (Auto) 9.0 x10^3/uL (1.8-7.7) Lymphocytes # (Auto) 1.7 x10^3/uL (1.0-4.8) Monocytes # (Auto) 0.9 x10^3/uL (0.0-1.1) Eosinophils # (Auto) 0.1 x10^3/uL (0.0-0.7) Basophils # (Auto) 0.0 x10^3/uL (0.0-0.2) Sodium Level 139 mmol/L (136-145) Potassium Level 3.5 mmol/L (3.5-5.1) Chloride Level 102 mmol/L (98-107) Carbon Dioxide Level 26 mmol/L (21-32) Anion Gap 11 (6-14) Blood Urea Nitrogen 20 mg/dL (8-26) Creatinine 1.0 mg/dL (0.7-1.3) Estimated GFR (Cockcroft-Gault) 85.0 BUN/Creatinine Ratio 20 (6-20) Glucose Level 103 mg/dL (70-99) Calcium Level 8.9 mg/dL (8.5-10.1) Total Bilirubin 0.2 mg/dL (0.2-1.0) Aspartate Amino Transf (AST/SGOT) 16 U/L (15-37) Alanine Aminotransferase (ALT/SGPT) 25 U/L (16-63) Alkaline Phosphatase 77 U/L (46-116) Total Protein 7.1 g/dL (6.4-8.2) Albumin 3.7 g/dL (3.4-5.0) Albumin/Globulin Ratio 1.1 (1.0-1.7) Lipase 145 U/L (73-393) Laboratory Tests Test 06/20/20 06:25 06/20/20 06:50 Urine Collection Type Unknown Urine Color Yellow Urine Clarity Clear Urine pH 5.5 (<5.0-8.0) Urine Specific [place] 1.015 (1.000-1.030) Urine Protein Negative mg/dL (NEG-TRACE) Urine Glucose (UA) Negative mg/dL (NEG) Urine Ketones (Stick) Negative mg/dL (NEG) Urine Blood Negative (NEG) Urine Nitrite Negative (NEG) Urine Bilirubin Negative (NEG) Urine Urobilinogen Dipstick 0.2 mg/dL (0.2 mg/dL) Urine Leukocyte Esterase Negative (NEG) Urine RBC 0 /HPF (0-2) Urine WBC 0 /HPF (0-4) Urine Squamous Epithelial Cells Few /LPF Urine Bacteria 0 /HPF (0-FEW) White Blood Count 11.8 x10^3/uL (4.0-11.0) Red Blood Count 4.54 x10^6/uL (4.30-5.70) Hemoglobin 13.3 g/dL (13.0-17.5) Hematocrit 39.2 % (39.0-53.0) Mean Corpuscular Volume 86 fL (79-100) Mean Corpuscular Hemoglobin 29 pg (25-35) Mean Corpuscular Hemoglobin Concent 34 g/dL (31-37) Red Cell Distribution Width 13.3 % (11.5-14.5) Platelet Count 179 x10^3/uL (140-400) Neutrophils (%) (Auto) 76 % (31-73) Lymphocytes (%) (Auto) 14 % (24-48) Monocytes (%) (Auto) 8 % (0-9) Eosinophils (%) (Auto) 1 % (0-3) Basophils (%) (Auto) 0 % (0-3) Neutrophils # (Auto) 9.0 x10^3/uL (1.8-7.7) Lymphocytes # (Auto) 1.7 x10^3/uL (1.0-4.8) Monocytes # (Auto) 0.9 x10^3/uL (0.0-1.1) Eosinophils # (Auto) 0.1 x10^3/uL (0.0-0.7) Basophils # (Auto) 0.0 x10^3/uL (0.0-0.2) Sodium Level 139 mmol/L (136-145) Potassium Level 3.5 mmol/L (3.5-5.1) Chloride Level 102 mmol/L (98-107) Carbon Dioxide Level 26 mmol/L (21-32) Anion Gap 11 (6-14) Blood Urea Nitrogen 20 mg/dL (8-26) Creatinine 1.0 mg/dL (0.7-1.3) Estimated GFR (Cockcroft-Gault) 85.0 BUN/Creatinine Ratio 20 (6-20) Glucose Level 103 mg/dL (70-99) Calcium Level 8.9 mg/dL (8.5-10.1) Total Bilirubin 0.2 mg/dL (0.2-1.0) Aspartate Amino Transf (AST/SGOT) 16 U/L (15-37) Alanine Aminotransferase (ALT/SGPT) 25 U/L (16-63) Alkaline Phosphatase 77 U/L (46-116) Total Protein 7.1 g/dL (6.4-8.2) Albumin 3.7 g/dL (3.4-5.0) Albumin/Globulin Ratio 1.1 (1.0-1.7) Lipase 145 U/L (73-393) Assessment/Plan Assessment/Plan acute appendicitis plan lap appy tomorrow SAPPHIRE MERA MD 06/20/20 1814: CONSULT Assessment/Plan Assessment/Plan Pt seen and examined. Agree with Ms. Garcia's note Pt with c/o RLQ abd pain imaging c/w appendicitis will check covid, cont abx and plan laparoscopic appendectomy in AM. R/R/B/A d/w pt via case manager specialist. He elects to proceed. Thanks for consult! BABAK GARCIA APRN Jun 20, 2020 12:16 SAPPHIRE MERA MD Jun 20, 2020 18:14
--- NOTE | 2020-06-20 14:42 | PDOC1 ---
History and Physical Date of Service: DOS: DATE: 06/20/20 TIME: 14:38 Chief Complaint: Chief Complain: Abdominal pain History of Present Illness: HPI: History obtained from patient chart review and discussion with ED physician and surgery Patient is apparently a 35-year-old male with a past medical history of seizure disorder and a 1 day history of diffuse abdominal pain that started at 3 AM this morning. Pain is moderate in intensity and becomes more severe with palpation. Patient has had similar abdominal pains in the past. Denies any nausea vomiting, bloody stools, dysuria, shortness of breath, fever, chest pain. No recent travel. Past Medical/Surgical History: PMH/PSH: History of seizure Allergies: Allergies: Coded Allergies: No Known Drug Allergies (Unverified , 08/11/16) Family History: Family History: Reviewed and none reported Social History: Social History: Denies alcohol, tobacco, drug abuse Current Medications: Current Medications Current Medications Sodium Chloride 1,000 ml @ 1,000 mls/hr Q1H IV Last administered on 06/20/20at 06:53; Start 06/20/20 at 06:31; Stop 06/20/20 at 07:30; Status DC Ondansetron HCl (Zofran) 4 mg 1X ONCE IVP Last administered on 06/20/20at 06:52; Start 06/20/20 at 06:45; Stop 06/20/20 at 06:46; Status DC Famotidine (Pepcid Vial) 20 mg 1X ONCE IVP Last administered on 06/20/20at 06:52; Start 06/20/20 at 06:45; Stop 06/20/20 at 06:46; Status DC Multi-Ingredient Mouthwash/Gargle (Gi Cocktail) 20 ml 1X ONCE SWSW Last administered on 06/20/20at 06:52; Start 06/20/20 at 06:45; Stop 06/20/20 at 06:46; Status DC Iohexol (Omnipaque 300 Mg/ml) 75 ml 1X ONCE IV Last administered on 06/20/20at 07:28; Start 06/20/20 at 07:15; Stop 06/20/20 at 07:16; Status DC Info (CONTRAST GIVEN -- Rx MONITORING) 1 each PRN DAILY PRN MC SEE COMMENTS; Start 06/20/20 at 07:30; Stop 06/22/20 at 07:29 Iohexol (Omnipaque 240 Mg/ml) 30 ml 1X ONCE PO Last administered on 06/20/20at 09:17; Start 06/20/20 at 09:00; Stop 06/20/20 at 09:01; Status DC Piperacillin Sod/ Tazobactam Sod 3.375 gm/Sodium Chloride 50 ml @ 100 mls/hr 1X ONCE IV Last administered on 06/20/20at 10:38; Start 06/20/20 at 10:00; Stop 06/20/20 at 10:29; Status DC Ondansetron HCl (Zofran) 4 mg PRN Q8HRS PRN IV NAUSEA/VOMITING; Start 06/20/20 at 10:15; Stop 06/21/20 at 10:14 Morphine Sulfate (Morphine Sulfate) 2 mg PRN Q2HR PRN IV PAIN Last administered on 06/20/20at 10:49; Start 06/20/20 at 10:15; Stop 06/21/20 at 10:14 Piperacillin Sod/ Tazobactam Sod 3.375 gm/Sodium Chloride 50 ml @ 100 mls/hr Q6HRS IV ; Start 06/20/20 at 18:00 Active Scripts Active Lamictal (Lamotrigine) 25 Mg Tablet 25 Mg PO DAILY 30 Days 25 mg daily for 1 week (06/01-) 25 mg twice a day for 2 weeks (06/08-06/21) 25 mg 2 tabs po twice daily for 2 weeks (06/22-) Then 100 mg twice daily (07/06 and after) Keppra (Levetiracetam) 750 Mg Tablet 750 Mg PO BID 30 Days Acetaminophen 500 Mg Tablet 500 Mg PO PRN Q6HRS PRN 14 Days Pepcid (Famotidine) 20 Mg Tablet 20 Mg PO BID ROS: Review of Systems Review of System REVIEW OF SYSTEMS: GENERAL: Denies weakness SKIN: No bruising, hair changes or rashes. EYES: No blurred, double or loss of vision. NOSE AND THROAT: No history of nosebleeds, hoarseness or sore throat. HEART: No history of palpitations, chest pain or shortness of breath on exertion. LUNGS: Denies cough, hemoptysis, wheezing or shortness of breath. GASTROINTESTINAL: Denies changes in appetite, nausea, vomiting, diarrhea or constipation. GENITOURINARY: No history of frequency, urgency, hesitancy or nocturia. NEUROLOGIC: Denies history of numbness, tingling, or tremor. PSYCHIATRIC: No history of panic, anxiety or depression. ENDOCRINE: No history of heat or cold intolerance, polyuria or polydipsia. EXTREMITIES: Denies joint pain, pain on walking or stiffness. Physical Exam: Vital Signs: Vital Signs Date Time Temp Pulse Resp B/P (MAP) Pulse Ox O2 Delivery O2 Flow Rate FiO2 06/20/20 12:00 Room Air 06/20/20 11:30 98.5 80 18 120/71 (87) 97 98.5 Physcial Exam: GEN: No apparent distress. Alert and oriented HEENT: Normal cephalic, atraumatic, external auditory canals are patent EYES: Extraocular muscles are intact, pupil are equally round and reactive to light and accommodation MUSCULOSKELETAL: Well developed , well nourished, good range of motion ENDOCRINE: No thyromegaly was palpated LYMPHATICS: No cervical chain or axillary nodes were noted HEMATOPOIETIC: No bruising NECK: Supple, no JVD, no thyromegaly was noted LUNGS: Clear to auscultation in all lung goodman without rhonchi or wheezing HEART: RRR, S!, S2 present. Peripheral pulses intact, no obvious murmurs noted ABDOMEN: Soft, nontender. Positive bowel sounds, no organomegaly, normal bowel sounds EXTREMITIES: Without clubbing, cyanosis, or edema. Pedal pulses intact. Negative Homans sign NEUROLOGIC: Normal speech and tone. A&O x 3, moves all extremities, no obvious focal deficits PSYCHIATRIC: Normal affect, normal mood. Stable SKIN: No ulcerations or rashes, good skin turgor, no jaundice VASCULAR: Good capillary refill, neurovascular bundle appears to be intact Labs: Labs: Laboratory Tests Test 06/20/20 06:25 06/20/20 06:50 06/20/20 12:15 Urine Collection Type Unknown Urine Color Yellow Urine Clarity Clear Urine pH 5.5 (<5.0-8.0) Urine Specific Gaines 1.015 (1.000-1.030) Urine Protein Negative mg/dL (NEG-TRACE) Urine Glucose (UA) Negative mg/dL (NEG) Urine Ketones (Stick) Negative mg/dL (NEG) Urine Blood Negative (NEG) Urine Nitrite Negative (NEG) Urine Bilirubin Negative (NEG) Urine Urobilinogen Dipstick 0.2 mg/dL (0.2 mg/dL) Urine Leukocyte Esterase Negative (NEG) Urine RBC 0 /HPF (0-2) Urine WBC 0 /HPF (0-4) Urine Squamous Epithelial Cells Few /LPF Urine Bacteria 0 /HPF (0-FEW) White Blood Count 11.8 x10^3/uL (4.0-11.0) Red Blood Count 4.54 x10^6/uL (4.30-5.70) Hemoglobin 13.3 g/dL (13.0-17.5) Hematocrit 39.2 % (39.0-53.0) Mean Corpuscular Volume 86 fL (79-100) Mean Corpuscular Hemoglobin 29 pg (25-35) Mean Corpuscular Hemoglobin Concent 34 g/dL (31-37) Red Cell Distribution Width 13.3 % (11.5-14.5) Platelet Count 179 x10^3/uL (140-400) Neutrophils (%) (Auto) 76 % (31-73) Lymphocytes (%) (Auto) 14 % (24-48) Monocytes (%) (Auto) 8 % (0-9) Eosinophils (%) (Auto) 1 % (0-3) Basophils (%) (Auto) 0 % (0-3) Neutrophils # (Auto) 9.0 x10^3/uL (1.8-7.7) Lymphocytes # (Auto) 1.7 x10^3/uL (1.0-4.8) Monocytes # (Auto) 0.9 x10^3/uL (0.0-1.1) Eosinophils # (Auto) 0.1 x10^3/uL (0.0-0.7) Basophils # (Auto) 0.0 x10^3/uL (0.0-0.2) Sodium Level 139 mmol/L (136-145) Potassium Level 3.5 mmol/L (3.5-5.1) Chloride Level 102 mmol/L (98-107) Carbon Dioxide Level 26 mmol/L (21-32) Anion Gap 11 (6-14) Blood Urea Nitrogen 20 mg/dL (8-26) Creatinine 1.0 mg/dL (0.7-1.3) Estimated GFR (Cockcroft-Gault) 85.0 BUN/Creatinine Ratio 20 (6-20) Glucose Level 103 mg/dL (70-99) Calcium Level 8.9 mg/dL (8.5-10.1) Total Bilirubin 0.2 mg/dL (0.2-1.0) Aspartate Amino Transf (AST/SGOT) 16 U/L (15-37) Alanine Aminotransferase (ALT/SGPT) 25 U/L (16-63) Alkaline Phosphatase 77 U/L (46-116) Total Protein 7.1 g/dL (6.4-8.2) Albumin 3.7 g/dL (3.4-5.0) Albumin/Globulin Ratio 1.1 (1.0-1.7) Lipase 145 U/L (73-393) SARS-CoV-2 Antigen (Rapid) Negative (NEGATIVE) Laboratory Tests Test 06/20/20 06:25 06/20/20 06:50 06/20/20 12:15 Urine Collection Type Unknown Urine Color Yellow Urine Clarity Clear Urine pH 5.5 (<5.0-8.0) Urine Specific Gaines 1.015 (1.000-1.030) Urine Protein Negative mg/dL (NEG-TRACE) Urine Glucose (UA) Negative mg/dL (NEG) Urine Ketones (Stick) Negative mg/dL (NEG) Urine Blood Negative (NEG) Urine Nitrite Negative (NEG) Urine Bilirubin Negative (NEG) Urine Urobilinogen Dipstick 0.2 mg/dL (0.2 mg/dL) Urine Leukocyte Esterase Negative (NEG) Urine RBC 0 /HPF (0-2) Urine WBC 0 /HPF (0-4) Urine Squamous Epithelial Cells Few /LPF Urine Bacteria 0 /HPF (0-FEW) White Blood Count 11.8 x10^3/uL (4.0-11.0) Red Blood Count 4.54 x10^6/uL (4.30-5.70) Hemoglobin 13.3 g/dL (13.0-17.5) Hematocrit 39.2 % (39.0-53.0) Mean Corpuscular Volume 86 fL (79-100) Mean Corpuscular Hemoglobin 29 pg (25-35) Mean Corpuscular Hemoglobin Concent 34 g/dL (31-37) Red Cell Distribution Width 13.3 % (11.5-14.5) Platelet Count 179 x10^3/uL (140-400) Neutrophils (%) (Auto) 76 % (31-73) Lymphocytes (%) (Auto) 14 % (24-48) Monocytes (%) (Auto) 8 % (0-9) Eosinophils (%) (Auto) 1 % (0-3) Basophils (%) (Auto) 0 % (0-3) Neutrophils # (Auto) 9.0 x10^3/uL (1.8-7.7) Lymphocytes # (Auto) 1.7 x10^3/uL (1.0-4.8) Monocytes # (Auto) 0.9 x10^3/uL (0.0-1.1) Eosinophils # (Auto) 0.1 x10^3/uL (0.0-0.7) Basophils # (Auto) 0.0 x10^3/uL (0.0-0.2) Sodium Level 139 mmol/L (136-145) Potassium Level 3.5 mmol/L (3.5-5.1) Chloride Level 102 mmol/L (98-107) Carbon Dioxide Level 26 mmol/L (21-32) Anion Gap 11 (6-14) Blood Urea Nitrogen 20 mg/dL (8-26) Creatinine 1.0 mg/dL (0.7-1.3) Estimated GFR (Cockcroft-Gault) 85.0 BUN/Creatinine Ratio 20 (6-20) Glucose Level 103 mg/dL (70-99) Calcium Level 8.9 mg/dL (8.5-10.1) Total Bilirubin 0.2 mg/dL (0.2-1.0) Aspartate Amino Transf (AST/SGOT) 16 U/L (15-37) Alanine Aminotransferase (ALT/SGPT) 25 U/L (16-63) Alkaline Phosphatase 77 U/L (46-116) Total Protein 7.1 g/dL (6.4-8.2) Albumin 3.7 g/dL (3.4-5.0) Albumin/Globulin Ratio 1.1 (1.0-1.7) Lipase 145 U/L (73-393) SARS-CoV-2 Antigen (Rapid) Negative (NEGATIVE) Images: Images CT abdomen pelvis IMPRESSION: The mild inflammatory changes in the right lower quadrant abdomen in association with oral contrast evidence of an obstructed appendiceal orifice is suspicious for early acute appendicitis. No perforation or abscess. Assessment/Plan Assessment/Plan Acute abdominal pain due to acute appendicitis Admit to medicine for further management Surgery consult Continue IV fluids N.p.o. Lovenox for DVT prophylaxis Full code Discussed with RN and SW Disposition pending OR Surrogate decision maker is undesignated at this time Justifications for Admission Abdominal Pain Indications Is patient in severe pain?: Yes Justification for admission: Patient has severe pain that requires (parenteral analgesic-please state analgesics and route) at least every 4 hours necessitating inpatient level of care. Is NPO status required?: Yes Justification for admission: Patient may require to be NPO for greater 24hours making it medically necessary to manage patient as inpatient. Other Justification RHEA MEANS MD Jun 20, 2020 14:42
[2020-06-20] MEDS ORDERED: DOCUSATE SODIUM 100 MG CAPSULE. PO PRN (14:45)
[2020-06-20] MEDS ORDERED: POTASSIUM CHLORIDE 10MEQ 100 ML IV PRN ×2 (14:45)
[2020-06-20] MEDS ORDERED: DEXTROSE 50% 25 GM / 50ML DISP.SYRIN. IV PRN (14:45)
[2020-06-20] MEDS ORDERED: ONDANSETRON PF 4 MG/2 ML VIAL. IVP PRN (14:45)
[2020-06-20] MEDS ORDERED: ACETAMINOPHEN 325 MG TABLET. PO PRN (14:45)
[2020-06-20] MEDS ORDERED: SENNOSIDES 8.6 MG TABLET PO PRN (14:45)
[2020-06-20] MEDS ORDERED: POTASSIUM CHLORIDE 20 MEQ TABLET.ER. PO PRN (14:45)
[2020-06-20] MEDS ORDERED: MAGNESIUM SULFATE 2GM 50 ML IV PRN (14:45)
[2020-06-20] MEDS: IV NORMAL SALINE 1000ML BAG 1,000 ML IV SCH (15:22)
[2020-06-20] MEDS: ENOXAPARIN 40 MG/0.4 ML SYRINGE. SQ SCH (15:23)
[2020-06-20 16:38] VITALS: BP 109/68
[2020-06-20] MEDS: PIPERACILLIN/TAZOBACTAM 3.375 GM in IV NORMAL SALINE 50ML 50 ML IV SCH (17:59)
[2020-06-20] MEDS ORDERED: PIPERACILLIN/TAZOBACTAM 3.375 GM in IV NORMAL SALINE 50ML 50 ML IV SCH (18:00)
[2020-06-20 18:26] VITALS: BP 109/70
[2020-06-20] MEDS ORDERED: MAGNESIUM OXIDE 400 MG TABLET PO PRN (21:00)
[2020-06-20] MEDS: FAMOTIDINE 20 MG TABLET. PO SCH (21:17)
[2020-06-20] MEDS: levETIRAcetam 250 MG TABLET PO SCH (21:17)
[2020-06-21] VITALS (11 sets, daily range): BP systolic 111–156; BP diastolic 60–92
[2020-06-21] MEDS: PIPERACILLIN/TAZOBACTAM 3.375 GM in IV NORMAL SALINE 50ML 50 ML IV SCH ×5 (00:13→22:44)
[2020-06-21] MEDS: IV NORMAL SALINE 1000ML BAG 1,000 ML IV SCH ×3 (00:34→22:43)
[2020-06-21 06:11] LABS: BASO % 0 % (0-3); EOS # 0.1 x10^3/uL (0.0-0.7); EOS % 2 % (0-3); HEMATOCRIT 37.3 % (39.0-53.0); HEMOGLOBIN 13.1 g/dL (13.0-17.5); LYMPH # 1.5 x10^3/uL (1.0-4.8); LYMPH % 22 % (24-48); MEAN CORPUSCULAR HEMOGLOBIN 30 pg (25-35); MEAN CORPUSCULAR HGB CONC 35 g/dL (31-37); MEAN CORPUSCULAR VOLUME 87 fL (79-100); MONO # 0.9 x10^3/uL (0.0-1.1); MONO % 13 % (0-9); NEUT # 4.4 x10^3/uL (1.8-7.7); NEUT % 63 % (31-73); PLATELET COUNT 161 x10^3/uL (140-400); RED BLOOD COUNT 4.31 x10^6/uL (4.30-5.70); RED CELL DISTRIBUTION WIDTH 13.1 % (11.5-14.5); WHITE BLOOD COUNT 6.9 x10^3/uL (4.0-11.0)
[2020-06-21 06:13] LABS: CALCIUM 8.4 mg/dL (8.5-10.1); CREATININE 0.9 mg/dL (0.7-1.3); MAGNESIUM 2.1 mg/dL (1.8-2.4); PHOSPHORUS 4.2 mg/dL (2.6-4.7); POTASSIUM 3.7 mmol/L (3.5-5.1)
[2020-06-21] MEDS ORDERED: MORPHINE SULFATE 2 MG/ML VIAL. IV PRN (07:00)
[2020-06-21] MEDS ORDERED: IV RINGERS,LACTATED 1000ML 1,000 ML IV SCH ×2 (07:00→16:23)
[2020-06-21] MEDS ORDERED: PROCHLORPERAZINE 10 MG/2 ML VIAL. IV PRN (07:00)
[2020-06-21] MEDS ORDERED: HYDROmorphone 2 MG/ML VIAL IV PRN (07:00)
[2020-06-21] MEDS ORDERED: fentaNYL PF VIAL 100 MCG/2 ML VIAL IV PRN ×2 (07:00)
--- NOTE | 2020-06-21 07:45 | NUR ---
Resting in bed with no c/o at this time.
[2020-06-21] MEDS: lamoTRIgine 25 MG TABLET. PO SCH (08:19)
[2020-06-21] MEDS: levETIRAcetam 250 MG TABLET PO SCH ×2 (08:20→20:27)
[2020-06-21] MEDS: FAMOTIDINE 20 MG TABLET. PO SCH ×2 (08:20→20:27)
[2020-06-21] MEDS ORDERED: LIDOCAINE 2% PF 5 ML VIAL. ONE ×2 (12:15→12:41)
[2020-06-21] MEDS ORDERED: PROPOFOL 10 MG/ML (20ML) VIAL. IV ONE ×2 (12:15→12:41)
--- NOTE | 2020-06-21 12:24 | NUR ---
Pt to surgery by bed.
--- NOTE | 2020-06-21 12:36 | PDOC ---
[facility] [facility] PROGRESS NOTE Date of Service DOS: DATE: 06/21/20 TIME: 12:33 Chief Complaint Chief Complaint Acute abdominal pain due to nonperforated appendicitis History of seizures On-call to the OR for laparoscopic appendectomy Continue IV antibiotics Lovenox for DVT prophylaxis ADA diet Full code Discussed with RN and SW Disposition surgery Surrogate decision maker is undesignated at this time History of Present Illness History of Present Illness 35-year-old male with a past medical history of seizure disorder and a 1 day history of diffuse abdominal pain that started at 3 AM this morning. Pain is moderate in intensity and becomes more severe with palpation. Patient has had similar abdominal pains in the past. Denies any nausea vomiting, bloody stools, dysuria, shortness of breath, fever, chest pain. No recent travel. 06/21/2020 No acute events overnight. Patient seen and examined bedside. Patient's chart, labs, images were reviewed and discussed with RN Vitals/I&O Vitals/I&O: Vital Signs Date Time Temp Pulse Resp B/P (MAP) Pulse Ox O2 Delivery O2 Flow Rate FiO2 06/21/20 11:00 97.9 77 18 129/70 (89) 98 Room Air 97.9 I & O 06/20/20 06/20/20 06/21/20 15:00 23:00 07:00 Intake Total 1050 ml 400 ml Balance 1050 ml 400 ml Physical Exam Physical Exam: GEN: No apparent distress. Alert and oriented HEENT: Normal cephalic, atraumatic, external auditory canals are patent NECK: Supple, no JVD, no thyromegaly was noted LUNGS: Bilateral crackles HEART: RRR, S1, S2 present. Peripheral pulses intact, no obvious murmurs noted ABDOMEN: Soft, right lower quadrant tenderness positive bowel sounds, no organomegaly, normal bowel sounds EXTREMITIES: Without clubbing, cyanosis, or edema. Pedal pulses intact. Negative Homans sign General: Alert, Oriented X3, Cooperative, No acute distress Heart: Regular rate, Normal S1, Normal S2 Lungs: Clear Abdomen: Soft, Other (RLQ ttp ) Extremities: No clubbing, No cyanosis Skin: No rashes, No breakdown Labs Labs: Laboratory Tests Test 06/21/20 04:20 White Blood Count 6.9 x10^3/uL (4.0-11.0) Red Blood Count 4.31 x10^6/uL (4.30-5.70) Hemoglobin 13.1 g/dL (13.0-17.5) Hematocrit 37.3 % (39.0-53.0) Mean Corpuscular Volume 87 fL (79-100) Mean Corpuscular Hemoglobin 30 pg (25-35) Mean Corpuscular Hemoglobin Concent 35 g/dL (31-37) Red Cell Distribution Width 13.1 % (11.5-14.5) Platelet Count 161 x10^3/uL (140-400) Neutrophils (%) (Auto) 63 % (31-73) Lymphocytes (%) (Auto) 22 % (24-48) Monocytes (%) (Auto) 13 % (0-9) Eosinophils (%) (Auto) 2 % (0-3) Basophils (%) (Auto) 0 % (0-3) Neutrophils # (Auto) 4.4 x10^3/uL (1.8-7.7) Lymphocytes # (Auto) 1.5 x10^3/uL (1.0-4.8) Monocytes # (Auto) 0.9 x10^3/uL (0.0-1.1) Eosinophils # (Auto) 0.1 x10^3/uL (0.0-0.7) Basophils # (Auto) 0.0 x10^3/uL (0.0-0.2) Sodium Level 143 mmol/L (136-145) Potassium Level 3.7 mmol/L (3.5-5.1) Chloride Level 106 mmol/L (98-107) Carbon Dioxide Level 28 mmol/L (21-32) Anion Gap 9 (6-14) Blood Urea Nitrogen 17 mg/dL (8-26) Creatinine 0.9 mg/dL (0.7-1.3) Estimated GFR (Cockcroft-Gault) 96.0 Glucose Level 76 mg/dL (70-99) Calcium Level 8.4 mg/dL (8.5-10.1) Phosphorus Level 4.2 mg/dL (2.6-4.7) Magnesium Level 2.1 mg/dL (1.8-2.4) Assessment and Plan Assessmemt and Plan Problems Medical Problems: (1) Acute appendicitis Status: Acute (2) Right lower quadrant abdominal pain Status: Acute Comment Review of Relevant I have reviewed the following items mackenzie (where applicable) has been applied. Medications: Current Medications Medications (Trade) Dose Ordered Sig/Cyndi Route PRN Reason Start Time Stop Time Status Last Admin Dose Admin Piperacillin Sod/ Tazobactam Sod 3.375 gm/Sodium Chloride 50 ml @ 100 mls/hr Q6HRS IV 06/20/20 18:00 06/21/20 12:15 Sodium Chloride 1,000 ml @ 100 mls/hr Q10H IV 06/20/20 14:34 06/20/20 15:22 Enoxaparin Sodium (Lovenox 40mg Syringe) 40 mg Q24H SQ 06/20/20 15:00 06/20/20 15:23 Famotidine (Pepcid) 20 mg BID PO 06/20/20 21:00 06/21/20 08:20 Lamotrigine (LaMICtal) 25 mg DAILY PO 06/21/20 09:00 06/21/20 08:19 Levetiracetam (Keppra) 750 mg BID PO 06/20/20 21:00 06/21/20 08:20 Justifications for Admission Abdominal Pain Indications Is patient in severe pain?: Yes Justification for admission: Patient has severe pain that requires (parenteral analgesic-please state analgesics and route) at least every 4 hours necessitating inpatient level of care. Is NPO status required?: Yes Justification for admission: Patient may require to be NPO for greater 24hours making it medically necessary to manage patient as inpatient. Other Justification RHEA MEANS MD Jun 21, 2020 12:36
[2020-06-21] MEDS ORDERED: NEOSTIGMINE METHYLSULFATE 5 MG/5 ML SYRINGE. ONE (12:41)
[2020-06-21] MEDS ORDERED: DEXAMETHASONE SOD PHOS 4 MG/ML VIAL ONE (12:41)
[2020-06-21] MEDS ORDERED: ROCURONIUM 50 MG/5 ML VIAL. ONE (12:41)
[2020-06-21] MEDS ORDERED: ONDANSETRON PF 4 MG/2 ML VIAL. ONE (12:41)
[2020-06-21] MEDS ORDERED: MIDAZOLAM HCL/PF 2 MG/2 ML VIAL. ONE (12:41)
[2020-06-21] MEDS ORDERED: SUCCINYLCHOLINE 200 MG/10 ML VIAL. ONE (12:41)
[2020-06-21] MEDS ORDERED: fentaNYL PF VIAL 100 MCG/2 ML VIAL ONE ×2 (12:41→14:43)
[2020-06-21] MEDS ORDERED: GLYCOPYRROLATE 1 MG/5 ML VIAL. ONE (12:41)
[2020-06-21] MEDS ORDERED: BUPIVACAINE-EPI 0.5%-1:200000 MPF 30 ML VIAL. ONE (13:24)
--- NOTE | 2020-06-21 13:57 | PDOC ---
SURGICAL PROGRESS NOTE DATE: 06/21/20 TIME: 13:56 Subjective Pre-Op Note 35 yo M with appendicitis TO OR for laparoscopic versus open appendectomy. Pt appears comfortable. Vital Signs Vital Signs Date Time Temp Pulse Resp B/P (MAP) Pulse Ox O2 Delivery O2 Flow Rate FiO2 06/21/20 12:31 97.9 77 15 122/63 98 Room Air 97.9 I&O Intake and Output 06/21/20 07:00 Intake Total 1450 ml Balance 1450 ml Intake Oral 0 ml IV Total 1050 ml Blood Product IV Normal Saline Flush 400 ml # Voids 2 Labs Laboratory Tests Test 06/20/20 06:25 06/20/20 06:50 06/20/20 12:15 06/21/20 04:20 Urine Collection Type Unknown Urine Color Yellow Urine Clarity Clear Urine pH 5.5 (<5.0-8.0) Urine Specific Mccamey 1.015 (1.000-1.030) Urine Protein Negative mg/dL (NEG-TRACE) Urine Glucose (UA) Negative mg/dL (NEG) Urine Ketones (Stick) Negative mg/dL (NEG) Urine Blood Negative (NEG) Urine Nitrite Negative (NEG) Urine Bilirubin Negative (NEG) Urine Urobilinogen Dipstick 0.2 mg/dL (0.2 mg/dL) Urine Leukocyte Esterase Negative (NEG) Urine RBC 0 /HPF (0-2) Urine WBC 0 /HPF (0-4) Urine Squamous Epithelial Cells Few /LPF Urine Bacteria 0 /HPF (0-FEW) White Blood Count 11.8 x10^3/uL (4.0-11.0) 6.9 x10^3/uL (4.0-11.0) Red Blood Count 4.54 x10^6/uL (4.30-5.70) 4.31 x10^6/uL (4.30-5.70) Hemoglobin 13.3 g/dL (13.0-17.5) 13.1 g/dL (13.0-17.5) Hematocrit 39.2 % (39.0-53.0) 37.3 % (39.0-53.0) Mean Corpuscular Volume 86 fL (79-100) 87 fL (79-100) Mean Corpuscular Hemoglobin 29 pg (25-35) 30 pg (25-35) Mean Corpuscular Hemoglobin Concent 34 g/dL (31-37) 35 g/dL (31-37) Red Cell Distribution Width 13.3 % (11.5-14.5) 13.1 % (11.5-14.5) Platelet Count 179 x10^3/uL (140-400) 161 x10^3/uL (140-400) Neutrophils (%) (Auto) 76 % (31-73) 63 % (31-73) Lymphocytes (%) (Auto) 14 % (24-48) 22 % (24-48) Monocytes (%) (Auto) 8 % (0-9) 13 % (0-9) Eosinophils (%) (Auto) 1 % (0-3) 2 % (0-3) Basophils (%) (Auto) 0 % (0-3) 0 % (0-3) Neutrophils # (Auto) 9.0 x10^3/uL (1.8-7.7) 4.4 x10^3/uL (1.8-7.7) Lymphocytes # (Auto) 1.7 x10^3/uL (1.0-4.8) 1.5 x10^3/uL (1.0-4.8) Monocytes # (Auto) 0.9 x10^3/uL (0.0-1.1) 0.9 x10^3/uL (0.0-1.1) Eosinophils # (Auto) 0.1 x10^3/uL (0.0-0.7) 0.1 x10^3/uL (0.0-0.7) Basophils # (Auto) 0.0 x10^3/uL (0.0-0.2) 0.0 x10^3/uL (0.0-0.2) Sodium Level 139 mmol/L (136-145) 143 mmol/L (136-145) Potassium Level 3.5 mmol/L (3.5-5.1) 3.7 mmol/L (3.5-5.1) Chloride Level 102 mmol/L (98-107) 106 mmol/L (98-107) Carbon Dioxide Level 26 mmol/L (21-32) 28 mmol/L (21-32) Anion Gap 11 (6-14) 9 (6-14) Blood Urea Nitrogen 20 mg/dL (8-26) 17 mg/dL (8-26) Creatinine 1.0 mg/dL (0.7-1.3) 0.9 mg/dL (0.7-1.3) Estimated GFR (Cockcroft-Gault) 85.0 96.0 BUN/Creatinine Ratio 20 (6-20) Glucose Level 103 mg/dL (70-99) 76 mg/dL (70-99) Calcium Level 8.9 mg/dL (8.5-10.1) 8.4 mg/dL (8.5-10.1) Total Bilirubin 0.2 mg/dL (0.2-1.0) Aspartate Amino Transf (AST/SGOT) 16 U/L (15-37) Alanine Aminotransferase (ALT/SGPT) 25 U/L (16-63) Alkaline Phosphatase 77 U/L (46-116) Total Protein 7.1 g/dL (6.4-8.2) Albumin 3.7 g/dL (3.4-5.0) Albumin/Globulin Ratio 1.1 (1.0-1.7) Lipase 145 U/L (73-393) SARS-CoV-2 Antigen (Rapid) Negative (NEGATIVE) Phosphorus Level 4.2 mg/dL (2.6-4.7) Magnesium Level 2.1 mg/dL (1.8-2.4) Laboratory Tests Test 06/21/20 04:20 White Blood Count 6.9 x10^3/uL (4.0-11.0) Red Blood Count 4.31 x10^6/uL (4.30-5.70) Hemoglobin 13.1 g/dL (13.0-17.5) Hematocrit 37.3 % (39.0-53.0) Mean Corpuscular Volume 87 fL (79-100) Mean Corpuscular Hemoglobin 30 pg (25-35) Mean Corpuscular Hemoglobin Concent 35 g/dL (31-37) Red Cell Distribution Width 13.1 % (11.5-14.5) Platelet Count 161 x10^3/uL (140-400) Neutrophils (%) (Auto) 63 % (31-73) Lymphocytes (%) (Auto) 22 % (24-48) Monocytes (%) (Auto) 13 % (0-9) Eosinophils (%) (Auto) 2 % (0-3) Basophils (%) (Auto) 0 % (0-3) Neutrophils # (Auto) 4.4 x10^3/uL (1.8-7.7) Lymphocytes # (Auto) 1.5 x10^3/uL (1.0-4.8) Monocytes # (Auto) 0.9 x10^3/uL (0.0-1.1) Eosinophils # (Auto) 0.1 x10^3/uL (0.0-0.7) Basophils # (Auto) 0.0 x10^3/uL (0.0-0.2) Sodium Level 143 mmol/L (136-145) Potassium Level 3.7 mmol/L (3.5-5.1) Chloride Level 106 mmol/L (98-107) Carbon Dioxide Level 28 mmol/L (21-32) Anion Gap 9 (6-14) Blood Urea Nitrogen 17 mg/dL (8-26) Creatinine 0.9 mg/dL (0.7-1.3) Estimated GFR (Cockcroft-Gault) 96.0 Glucose Level 76 mg/dL (70-99) Calcium Level 8.4 mg/dL (8.5-10.1) Phosphorus Level 4.2 mg/dL (2.6-4.7) Magnesium Level 2.1 mg/dL (1.8-2.4) Problem List Problems Medical Problems: (1) Acute appendicitis Status: Acute (2) Right lower quadrant abdominal pain Status: Acute Justicifation of Admission Dx: Justifications for Admission: Justification of Admission Dx: Yes SAPPHIRE MERA MD Jun 21, 2020 13:57
[2020-06-21] MEDS ORDERED: SURGICEL HEMOSTAT 4X8 EACH. ONE (14:50)
[2020-06-21] MEDS: ENOXAPARIN 40 MG/0.4 ML SYRINGE. SQ SCH (15:00)
[2020-06-21] MEDS ORDERED: SEVOFLURANE 31 TO 60 MINUTES. IH ONE (15:02)
--- NOTE | 2020-06-21 15:48 | NUR ---
Return to unit by bed from PACU. Awakens but falls back to sleep. Abdominal lap sites x's 3 d/i. Has ice pack for comfort. IVF's intact and infusing. SCD's on bilaterally. Side rails up x's 2 with call light in reach. Cont. monitor.
[2020-06-21] MEDS ORDERED: IV NORMAL SALINE 1000ML BAG 1,000 ML IV SCH (16:23)
[2020-06-21] MEDS ORDERED: NALOXONE 0.4 MG/ML VIAL. IV PRN (16:30)
--- NOTE | 2020-06-21 16:37 | PDOC4 ---
OPERATIVE NOTE Date: Date: Jun 21, 2020 Pre-Op Diagnosis: Appendicitis Post-Op Diagnosis: same Procedure Performed: laparoscopic appendectomy Surgeon: Ganesh Mera Anesthesia Type: GETA plus local Blood Loss: 50 Specimans Obtained: appendix Findings: indurated, erythematous appendix, no perforation Complications: none Operative Note: After obtaining informed consent, patient was taken to OR, induced under GETA and prepped in the usual fashion. 5 mm port placed LLQ and suprapubic, 12 port placed umbilical, all under laparoscopic guidance. Abdominal cavity was explored and otherwise unremarkable. Appendix was inflamed as noted. Defect created in mesoappendix. General load taken across base of appendix. Vascular load taken across mesoappendix. Appendix placed in bag, delivered and sent to pathology. Attention clips placed on staple line for hemostasis. Copious irrigation. No evidence of bleeding or other pathology. Ports removed without bleeding. Fascia repaired with 0 vicryl. Skin repaired with 4 0 monocryl. Dressing placed. Patient tolerated procedure well and sent to PACU in stable condition. All counts correct. Wound class is 3. SAPPHIRE MERA MD Jun 21, 2020 16:37
[2020-06-21] MEDS: HYDROcodone/APAP 5/325MG 1 TAB TABLET PO PRN (18:14)
[2020-06-21] MEDS: DOCUSATE SODIUM 100 MG CAPSULE. PO SCH (20:27)
[2020-06-22 03:00] VITALS: BP 106/62
[2020-06-22] MEDS: PIPERACILLIN/TAZOBACTAM 3.375 GM in IV NORMAL SALINE 50ML 50 ML IV SCH ×2 (05:13→11:00)
[2020-06-22 05:43] LABS: BASO % 0 % (0-3); EOS % 0 % (0-3); HEMATOCRIT 35.9 % (39.0-53.0); HEMOGLOBIN 12.4 g/dL (13.0-17.5); LYMPH % 8 % (24-48); MEAN CORPUSCULAR HEMOGLOBIN 30 pg (25-35); MEAN CORPUSCULAR HGB CONC 35 g/dL (31-37); MEAN CORPUSCULAR VOLUME 87 fL (79-100); MONO # 1.4 x10^3/uL (0.0-1.1); MONO % 11 % (0-9); NEUT # 9.9 x10^3/uL (1.8-7.7); NEUT % 80 % (31-73); PLATELET COUNT 177 x10^3/uL (140-400); RED BLOOD COUNT 4.15 x10^6/uL (4.30-5.70); RED CELL DISTRIBUTION WIDTH 13.2 % (11.5-14.5); WHITE BLOOD COUNT 12.4 x10^3/uL (4.0-11.0)
[2020-06-22 05:52] LABS: CALCIUM 8.2 mg/dL (8.5-10.1); CREATININE 1.1 mg/dL (0.7-1.3); GFR 76.2; POTASSIUM 3.6 mmol/L (3.5-5.1)
[2020-06-22 07:45] VITALS: BP 124/70
[2020-06-22] MEDS: DOCUSATE SODIUM 100 MG CAPSULE. PO SCH (08:03)
[2020-06-22] MEDS: lamoTRIgine 25 MG TABLET. PO SCH (08:03)
[2020-06-22] MEDS: FAMOTIDINE 20 MG TABLET. PO SCH (08:03)
[2020-06-22] MEDS: HYDROcodone/APAP 5/325MG 1 TAB TABLET PO PRN ×2 (08:03→14:29)
[2020-06-22] MEDS: levETIRAcetam 250 MG TABLET PO SCH (08:03)
[2020-06-22] MEDS ORDERED: DOCU-153 PO (10:09)
[2020-06-22] MEDS ORDERED: HYDR-2761 PO (10:09)
--- NOTE | 2020-06-22 10:13 | PDOC ---
SURGICAL PROGRESS NOTE DATE: 06/22/20 TIME: 10:11 Subjective pain ok--incisional pain tolerating diet Vital Signs Vital Signs Date Time Temp Pulse Resp B/P (MAP) Pulse Ox O2 Delivery O2 Flow Rate FiO2 06/22/20 08:03 16 06/22/20 08:00 Room Air 06/22/20 07:45 97.8 71 124/70 (88) 97 97.8 06/21/20 15:20 10 I&O Intake and Output 06/22/20 07:00 Intake Total 2850 ml Output Total 2335 ml Balance 515 ml Intake Oral 1000 ml IV Total 1850 ml Output Urine Total 2285 ml Estimated Blood Loss 50 ml # Voids 3 # Bowel Movements 1 General: Alert, Oriented X3, Cooperative Abdomen: Soft, Other (lap dressings dry) Labs Laboratory Tests Test 06/20/20 11:10 06/20/20 12:15 06/21/20 04:20 06/22/20 04:55 Coronavirus (PCR) Not detected (Not Detected) SARS-CoV-2 Antigen (Rapid) Negative (NEGATIVE) White Blood Count 6.9 x10^3/uL (4.0-11.0) 12.4 x10^3/uL (4.0-11.0) Red Blood Count 4.31 x10^6/uL (4.30-5.70) 4.15 x10^6/uL (4.30-5.70) Hemoglobin 13.1 g/dL (13.0-17.5) 12.4 g/dL (13.0-17.5) Hematocrit 37.3 % (39.0-53.0) 35.9 % (39.0-53.0) Mean Corpuscular Volume 87 fL (79-100) 87 fL (79-100) Mean Corpuscular Hemoglobin 30 pg (25-35) 30 pg (25-35) Mean Corpuscular Hemoglobin Concent 35 g/dL (31-37) 35 g/dL (31-37) Red Cell Distribution Width 13.1 % (11.5-14.5) 13.2 % (11.5-14.5) Platelet Count 161 x10^3/uL (140-400) 177 x10^3/uL (140-400) Neutrophils (%) (Auto) 63 % (31-73) 80 % (31-73) Lymphocytes (%) (Auto) 22 % (24-48) 8 % (24-48) Monocytes (%) (Auto) 13 % (0-9) 11 % (0-9) Eosinophils (%) (Auto) 2 % (0-3) 0 % (0-3) Basophils (%) (Auto) 0 % (0-3) 0 % (0-3) Neutrophils # (Auto) 4.4 x10^3/uL (1.8-7.7) 9.9 x10^3/uL (1.8-7.7) Lymphocytes # (Auto) 1.5 x10^3/uL (1.0-4.8) 1.0 x10^3/uL (1.0-4.8) Monocytes # (Auto) 0.9 x10^3/uL (0.0-1.1) 1.4 x10^3/uL (0.0-1.1) Eosinophils # (Auto) 0.1 x10^3/uL (0.0-0.7) 0.0 x10^3/uL (0.0-0.7) Basophils # (Auto) 0.0 x10^3/uL (0.0-0.2) 0.0 x10^3/uL (0.0-0.2) Sodium Level 143 mmol/L (136-145) 144 mmol/L (136-145) Potassium Level 3.7 mmol/L (3.5-5.1) 3.6 mmol/L (3.5-5.1) Chloride Level 106 mmol/L (98-107) 108 mmol/L (98-107) Carbon Dioxide Level 28 mmol/L (21-32) 24 mmol/L (21-32) Anion Gap 9 (6-14) 12 (6-14) Blood Urea Nitrogen 17 mg/dL (8-26) 13 mg/dL (8-26) Creatinine 0.9 mg/dL (0.7-1.3) 1.1 mg/dL (0.7-1.3) Estimated GFR (Cockcroft-Gault) 96.0 76.2 Glucose Level 76 mg/dL (70-99) 165 mg/dL (70-99) Calcium Level 8.4 mg/dL (8.5-10.1) 8.2 mg/dL (8.5-10.1) Phosphorus Level 4.2 mg/dL (2.6-4.7) Magnesium Level 2.1 mg/dL (1.8-2.4) Laboratory Tests Test 06/22/20 04:55 White Blood Count 12.4 x10^3/uL (4.0-11.0) Red Blood Count 4.15 x10^6/uL (4.30-5.70) Hemoglobin 12.4 g/dL (13.0-17.5) Hematocrit 35.9 % (39.0-53.0) Mean Corpuscular Volume 87 fL (79-100) Mean Corpuscular Hemoglobin 30 pg (25-35) Mean Corpuscular Hemoglobin Concent 35 g/dL (31-37) Red Cell Distribution Width 13.2 % (11.5-14.5) Platelet Count 177 x10^3/uL (140-400) Neutrophils (%) (Auto) 80 % (31-73) Lymphocytes (%) (Auto) 8 % (24-48) Monocytes (%) (Auto) 11 % (0-9) Eosinophils (%) (Auto) 0 % (0-3) Basophils (%) (Auto) 0 % (0-3) Neutrophils # (Auto) 9.9 x10^3/uL (1.8-7.7) Lymphocytes # (Auto) 1.0 x10^3/uL (1.0-4.8) Monocytes # (Auto) 1.4 x10^3/uL (0.0-1.1) Eosinophils # (Auto) 0.0 x10^3/uL (0.0-0.7) Basophils # (Auto) 0.0 x10^3/uL (0.0-0.2) Sodium Level 144 mmol/L (136-145) Potassium Level 3.6 mmol/L (3.5-5.1) Chloride Level 108 mmol/L (98-107) Carbon Dioxide Level 24 mmol/L (21-32) Anion Gap 12 (6-14) Blood Urea Nitrogen 13 mg/dL (8-26) Creatinine 1.1 mg/dL (0.7-1.3) Estimated GFR (Cockcroft-Gault) 76.2 Glucose Level 165 mg/dL (70-99) Calcium Level 8.2 mg/dL (8.5-10.1) Problem List Problems Medical Problems: (1) Acute appendicitis Status: Acute (2) Right lower quadrant abdominal pain Status: Acute Assessment/Plan ok to dc Fu 2 weeks Justicifation of Admission Dx: Justifications for Admission: Justification of Admission Dx: Yes BABAK GARCIA APRN Jun 22, 2020 10:12
[2020-06-22 11:00] VITALS: BP 129/71
--- NOTE | 2020-06-22 11:44 | DISCH ---
DISCHARGE INSTRUCTIONS Condition on Discharge Condition on Discharge: Stable (Please take stool softeners while taking narcotic for pain) Activity After Discharge Activity Instructions for Disc: Activity as tolerated Other activity instructions: OK to shower 48 hours after surgery Bathing Instructions: No Tub Bath until see Lifting Instructions after Dis: No pulling or pushing, Do not lift >10 pounds Exercise Instruction after Dis: Walk 10 min, 3 x per day Driving Instructions after Dis: Do not drive Weight Bearing Status after Di: As tolerated Diet after Discharge Diet after Discharge: Regular Diet Texture: Regular Liquid Texture: Thin Liquid Wound Incision Care Wound/Incision Care: Ice to area for comfort Wound Care Equipment: Dressings Checks after Discharge Checks after discharge: Check your Temp as needed Contacting the [facility] after DC Call your doctor for: If your condition worsens Follow-Up Follow Up With: Dr. Reddy in 2 weeks [phone] Treatment/Equipment after DC Adaptive Equipment Issued: None RHEA MEANS MD Jun 22, 2020 11:44
--- NOTE | 2020-06-22 13:47 | NUR ---
Spent extended time giving dismissal instructions with assistance of language line, according to pt/spouse seizure medications different advised to call PCP on Thursday to get correct dosage of seizure medication needed since no seizure activity for a while, advised not to take Tylenol & Lortab together because of Tylenol already in medication, Colace available OTC, dietary to include fruits & vegetables, really emphasized needing to see MD on Thursday if possible and to follow up with Dr. Reddy in 2 weeks, dressing supplies given for home, told to call family for ride home and we would take down in w/c,see instruction sheet for details
--- NOTE | 2020-06-22 14:50 | NUR ---
Discharge to home ambulatory, belongings taken by pt, see instruction sheet for details
--- NOTE | 2020-06-23 16:26 | PDOC3 ---
[facility]-Discharge Summary Date of Admission: Date of Admission: Jun 20, 2020 Date of Discharge: Date of Discharge: Jun 22, 2020 Admission Diagnosis: Admitting Diagnosis: Acute abdominal pain due to acute appendicitis Discharge Diagnosis: Discharge Diagnosis: Acute abdominal pain due to acute appendicitis Hospital Course: Hospital Course: 35-year-old male with a past medical history of seizure disorder and a 1 day history of diffuse abdominal pain that started at 3 AM this morning. Pain is moderate in intensity and becomes more severe with palpation. Patient has had similar abdominal pains in the past. Denies any nausea vomiting, bloody stools, dysuria, shortness of breath, fever, chest pain. No recent travel. Taken to OR for laparoscopic appendectomy. Tolerated procedure well without any postoperative complications. Ambulating, pain was well controlled, and tolerating diet before discharge. The rest of his hospital course was unevenful. Activity: Activity: Resume previous activity Medications: Home Meds Active Scripts Hydrocodone Bit/Acetaminophen (HYDROCODONE-APAP 5-325 ) 1 Tab Tablet, 1 TAB PO PRN Q4HRS PRN for MILD PAIN 1-3, #30 TAB 0 Refills Prov:BABAK AGRCIA APRN 06/22/20 Docusate Sodium (DOK) 100 Mg Capsule, 100 MG PO BID for constipation, #60 CAP 0 Refills Prov:BABAK GARCIA GARBAGE MAN 06/22/20 Lamotrigine (LAMICTAL) 25 Mg Tablet, 25 MG PO DAILY for seizure disorder for 30 Days, #100 TAB 1 Refill 25 mg daily for 1 week (06/01-) 25 mg twice a day for 2 weeks (06/08-06/21) 25 mg 2 tabs po twice daily for 2 weeks (06/22-) Then 100 mg twice daily (07/06 and after) Prov:MAYRA DANIELS MD 05/31/20 Levetiracetam (KEPPRA) 750 Mg Tablet, 750 MG PO BID for seizure for 30 Days, #60 TAB 6 Refills Prov:IBRAHIMA SMITH MD 05/26/20 Acetaminophen (ACETAMINOPHEN) 500 Mg Tablet, 500 MG PO PRN Q6HRS PRN for HEADACHE / TEMP for 14 Days, #30 TAB Prov:KODAK BLANK MD 05/05/19 Famotidine (PEPCID) 20 Mg Tablet, 20 MG PO BID, #30 TAB Prov:CINTHYA MCKEON MD 08/11/16 Scheduled Docusate Sodium (Dok), 100 MG PO BID Famotidine (Pepcid), 20 MG PO BID Lamotrigine (Lamictal), 25 MG PO DAILY Levetiracetam (Keppra), 750 MG PO BID Scheduled PRN Acetaminophen (Acetaminophen), 500 MG PO PRN Q6HRS PRN for HEADACHE / TEMP Hydrocodone Bit/Acetaminophen (Hydrocodone-Apap 5-325 ), 1 TAB PO PRN Q4HRS PRN for MILD PAIN 1-3 Total Time: Total Time: Total time spent was 20 minutes in preparing scripts, discharge planning with SW and RN, and preparing this discharge summary. Justicifation of Admission Dx: Justifications for Admission: Justification of Admission Dx: Yes RHEA MEANS MD Jun 23, 2020 16:26
== END 2020-06-22 14:51 | disposition home or self-care (01) | DRG 343 ==
LOC: ER 06:21 → 4 SOUTHEST 10:10 → OBSVTOIN 14:38
PROVIDERS: ADMIT Internal Medicine; ATTEND Internal Medicine
PROC: 0DTJ4ZZ Resection of Appendix, Percutaneous Endoscopic Approach (ICD-10-PCS; principal; 2020-06-21 13:45)
DX: K35.80 Unspecified acute appendicitis (principal); G40.909 Epilepsy, unspecified, not intractable, without status epilepticus; Z20.828 Contact with and (suspected) exposure to other viral communicable diseases
CPT/HCPCS: 36415; 72192; 74177; 80048; 80053; 81001; 83690; 83735; 84100; 85025; 87426; 96361; 96365; 96375; 99285; G0378; G0379; J0330; J1100; J1650; J2250; J2270; J2405; J2543; J2704; J2710; J3010; J3490; J7030; J7120; Q9966; Q9967; U0003-CS

== ENCOUNTER 2021-12-04 11:02 | Emergency (ER) | payer BC ==
[~2021-12-04] VITALS: Ht 157.5 cm; Wt 160.0 kg
[~2021-12-04 11:02] MED LIST changes: +DOCU-148 PO; +HYDR-2761 PO
[2021-12-04] MEDS ORDERED: ACETAMINOPHEN 500 MG TABLET PO ONE (12:30)
[2021-12-04 13:03] LABS: CALCIUM 9.1 mg/dL (8.5-10.1); CREATININE 0.9 mg/dL (0.7-1.3); GFR 95.5; POTASSIUM 3.8 mmol/L (3.5-5.1)
[2021-12-04] MEDS ORDERED: IOHEXOL 300 MG/ML 100ML VIAL. IV ONE (13:15)
[2021-12-04] MEDS ORDERED: CONTRAST GIVEN. MC PRN (13:15)
--- NOTE | 2021-12-04 13:43 | PHYS DOC ---
Past Medical History Past Medical History: No Pertinent History, Other (SOF[facility]A HOUSER) Additional Past Surgical Histo: hernia repair ? (SOFÍA HOUSER) Smoking Status: Never Smoker Alcohol Use: None Drug Use: None (SOFÍA HOUSER) General Adult EDM: Chief Complaint: ABDOMINAL PAIN HPI: HPI: Patient is a 36 year old male who presents with left-sided abdominal pain. Patient is [place] speaking in the blue library historian phone was used to communicate. Patient states that he was helping a friend move on Thursday (2 days ago), when he had sudden onset of left lower quadrant abdominal pain. Patient states that he has had a prior hernia repair. He denies flank pain, radiation of pain, nausea/vomiting/diarrhea, dysuria, hematuria. (SOFÍA HOUSER) Review of Systems: Review of Systems: ROS negative or noncontributory except as mentioned in HPI. (SOFÍA HOUSER) Heart Score: C/O Chest Pain: No (SOFÍA HOUSER) Current Medications: Current Medications Medications (Trade) Dose Ordered Sig/Cyndi Start Time Stop Time Status Last Admin Dose Admin Acetaminophen (Tylenol) 1,000 mg 1X ONCE 12/04/21 12:30 12/04/21 12:31 DC 12/04/21 13:28 1,000 MG Info (CONTRAST GIVEN -- Rx MONITORING) 1 each PRN DAILY PRN 12/04/21 13:15 12/06/21 13:14 Iohexol (Omnipaque 300 Mg/ml) 75 ml 1X ONCE 12/04/21 13:15 12/04/21 13:16 DC 12/04/21 13:15 75 ML (SOFÍA HOUSER) Allergies: Allergies: Allergies Coded Allergies Type Severity Reaction Last Updated Verified No Known Drug Allergies 12/04/21 No (SOFÍA HOUSER) Physical Exam: PE: Constitutional: Well developed, well nourished, no acute distress, non-toxic appearance. HENT: Normocephalic, atraumatic, bilateral external ears normal, nose normal. Eyes: EOMI, conjunctiva normal, no discharge. Neck: Normal range of motion, no stridor. Abdomen: Soft, no tenderness, no masses, no pulsatile masses, no rash or other skin lesions. Skin: Warm, dry, no erythema, no rash, no ecchymosis. Back: No step-off, no tenderness, no CVA tenderness. Extremities: No tenderness, no cyanosis, no clubbing, ROM intact, no edema. Neurologic: Alert and oriented x4, steady and symmetrical upright gait, no focal deficits noted. (SOFÍA HOUSER) Current Patient Data: Labs: Laboratory Tests Test 12/04/21 12:44 Sodium Level 138 mmol/L (136-145) Potassium Level 3.8 mmol/L (3.5-5.1) Chloride Level 102 mmol/L (98-107) Carbon Dioxide Level 27 mmol/L (21-32) Anion Gap 9 (6-14) Blood Urea Nitrogen 15 mg/dL (8-26) Creatinine 0.9 mg/dL (0.7-1.3) Estimated GFR (Cockcroft-Gault) 95.5 Glucose Level 92 mg/dL (70-99) Calcium Level 9.1 mg/dL (8.5-10.1) Laboratory Tests 12/04/21 12:44 Vital Signs: Vital Signs Date Time Temp Pulse Resp B/P (MAP) Pulse Ox O2 Delivery O2 Flow Rate FiO2 12/04/21 11:35 97.5 74 16 138/80 (99) 96 97.5 (SOFÍA HOUSER) Radiology/Procedures: Radiology/Procedures: PROCEDURE: CT ABD PELV W/ IV CONTRST ONLY Exam Date: 12/04/2021 1:[address] ABDOMEN+PELVIS W Indication: Reason: abd pain s/p heavy lifting / Spl. Instructions: [id number] 75ML [phone] / History: . TECHNIQUE: CT examination of the abdomen and pelvis was performed following the administration of nonionic intravenous contrast. One or more of the following dose reduction techniques were utilized: *Automated exposure control (AEC) *Adjustment of mA and/or kV according to patient size *Use of iterative reconstruction technique *CT scan done according to ALARA, or ALARA/IMAGE GENTLY FINDINGS: The visualized lung bases are clear. The liver, gallbladder, spleen, pancreas, adrenal glands and kidneys are normal. Urinary bladder is normal in appearance. Postoperative changes in the right lower quadrant are consistent with prior ton endectomy. There is focal fat stranding adjacent to the distal descending colon which is nonspecific but suspicious for epiploic appendagitis. No definite colonic diverticula are identified. There is no bowel obstruction. No significant atherosclerotic calcifications are seen. No lymphadenopathy or ascites is seen. Degenerative changes are seen in the spine. IMPRESSION: Focal fat stranding adjacent to the distal descending colon is nonspecific but suspicious for epiploic appendagitis. No definite colonic diverticula are identified, though diverticulitis would also be in the differential. Follow-up imaging is recommended following treatment to exclude underlying colonic lesion. Electronically signed by: Justin Hilario MD (12/04/2021 1:48 PM) [facility] (SOFÍA HOUSER) Course & Med Decision Making: Course & Med Decision Making Pertinent Labs and Imaging studies reviewed. (See chart for details) Patient is a 36-year-old male who had sudden onset of left lower quadrant abdominal pain 2 days ago while doing heavy lifting. Patient reports history of hernia repair. Work-up today will include CT abdomen pelvis with IV contrast. CT imaging reveals possible epiploic appendagitis. Imaging also suggests reevaluation to exclude colon lesion. Patient was informed of findings. Patient instructed to take [id number] analgesics and follow-up with GI under their advisement (SOFÍA HOUSER) Dragon Disclaimer: Dragon Disclaimer: This electronic medical record was generated, in whole or in part, using a voice recognition dictation system. (SOFÍA HOUSER) Departure Departure Impression: Primary Impression: Abdominal pain Qualified Codes: R10.32 - Left lower quadrant pain Disposition: 01 HOME / SELF CARE / HOMELESS Condition: STABLE Referrals: NO PCP (PCP) OZZIE CABALLERO MD Patient Instructions: Abdominal Pain, [id number] Additional Instructions: EMERGENCY DEPARTMENT GENERAL DISCHARGE INSTRUCTIONS Thank you for coming to [facility] ([facility]) today and trusting us with you care. We trust that you had a positive experience in our Emergency Department. If you wish to speak to the department management, you may call the director at . YOUR FOLLOW UP INSTRUCTIONS ARE FOLLOWS: 1. Follow up with your primary care doctor. If you do not have a primary doctor, please ask for a resource list of physicians or clinics that may be able to assist you with follow up care. 2. The emergency provider has interpreted your imaging studies, if any were ordered. The radiology clinical specialist medical device also reviewed them. If there is a change in the findings, you will be notified in 48 hours when at all possible. 3. If a lab test or culture has been done, your results will be reviewed and you will be notified if you need a change in treatment. 4. Follow instructions verbalized to you and refer to the printouts if needed. ADDITIONAL INSTRUCTIONS AND INFORMATION: 1. Your care today has been supervised by a physician who is specially trained in emergency care. Many problems require more than one evaluation for a complete diagnosis and treatment. We recommend that you schedule your follow up appointment as recommended to ensure complete treatment of you illness or injury. If you are unable to obtain follow up care and continue to have a problem, or if your condition worsens, we recommend that you return to the ED. 2. We are not able to safely determine your condition over the phone nor are we able to give sound medical advice over the phone. For these safety reasons, if you call for medical advice we will ask you to come to the ED for further evaluation. 3. If you have any questions regarding these discharge instructions please call the ED at . SAFETY INFORMATION: In the interest of safety, wellness, and injury prevention; we encourage you to wear your seat belt, if you smoke; quite smoking, and we encourage family to use a protective helmet for bicycling and other sporting events that present an increased risk for head injury. IF YOUR SYMPTOMS WORSEN OR NEW SYMPTOMS DEVELOP, OR YOU HAVE CONCERNS ABOUT YOUR CONDITION; OR IF YOUR CONDITION WORSENS WHILE YOU ARE WAITING FOR YOUR FOLLOW UP APPOINTMENT; EITHER CONTACT YOUR PRIMARY CARE DOCTOR, THE PHYSICIAN WHOSE NAME AND NUMBER YOU WERE GIVEN, OR RETURN TO THE ED IMMEDIATELY. Attending Co-Sign The patient was seen and interviewed as well as examined at the bedside. The chart was reviewed. The case was discussed. Agree with the plan of care. (JODIE RAINES DO) SOFÍA HOUSER Dec 04, 2021 13:43 JODIE RAINES DO Dec 04, 2021 15:28
--- NOTE | 2021-12-04 13:50 | RAD ---
Exam Date: 12/04/2021 1:[address] ABDOMEN+PELVIS W Indication: Reason: abd pain s/p heavy lifting / Spl. Instructions: [id number] 75ML [phone] / Hist ory: . TECHNIQUE: CT examination of the abdomen and pelvis was performed following the administration of no nionic intravenous contrast. One or more of the following dose reduction techniques were utilized: *Automated exposure control (AEC) *Adjustment of mA and/or kV according to patient size *Use of iterative reconstruction technique *CT scan done according to ALARA, or ALARA/IMAGE GENTLY FINDINGS: The visualized lung bases are clear. The liver, gallbladder, spleen, pancreas, adrenal glands and kidneys are normal. Urinary bladder is normal in appearance. Postoperative changes in the right lower quadrant are consistent with prior appendectomy. There is f ocal fat stranding adjacent to the distal descending colon which is nonspecific but suspicious for ep iploic appendagitis. No definite colonic diverticula are identified. There is no bowel obstruction. No significant atherosclerotic calcifications are seen. No lymphadenopathy or ascites is seen. Degenerative changes are seen in the spine. IMPRESSION: Focal fat stranding adjacent to the distal descending colon is nonspecific but suspicious for epiploi c appendagitis. No definite colonic diverticula are identified, though diverticulitis would also be in the differential. Follow-up imaging is recommended following treatment to exclude underlying colo genaro lesion. Electronically signed by: Justin Hilario MD (12/04/2021 1:48 PM) [facility]
[2021-12-04 14:55] VITALS: BP 131/85
== END 2021-12-04 14:56 | disposition home or self-care (01) ==
LOC: ER 11:02
DX: R10.32 Left lower quadrant pain (principal)
CPT/HCPCS: 36415; 74177; 80048; 99285; Q9967